=== PATIENT | female | born 1940 | race Asian ===

== ENCOUNTER 2016-05-14 14:01 | Observation (INO) | payer MEDICARE ==
[2016-05-14] MEDS ORDERED: cloNIDine 0.1 MG Tab PO ONE (14:37)
[2016-05-14] MEDS ORDERED: Labetalol 100 MG/20 ML MDV IVPUSH ONE ×4 (14:41→19:11)
[2016-05-14] MEDS: Sodium Chloride 0.9% 1,000 ML IV SCH ×2 (15:19→22:43)
[2016-05-14] MEDS ORDERED: Labetalol 20 MG/4 ML Syringe IVPUSH ONE ×2 (16:08→19:13)
[2016-05-14] MEDS ORDERED: Labetalol 20 MG/4 ML Syringe ONE (16:15)
[2016-05-14] MEDS ORDERED: Potassium Chloride 20 MEQ Tab.ER PO ONE (16:42)
[2016-05-14] MEDS ORDERED: Meclizine 25 MG Tab PO ONE (17:00)
[2016-05-14] MEDS ORDERED: Meclizine 25 MG Tab PO STA (17:14)
[2016-05-14] MEDS ORDERED: hydrALAZINE 20 MG/ML SDV IVPUSH ONE (20:25)
[2016-05-14] MEDS ORDERED: Ciprofloxacin 500 MG Tab PO ONE (21:21)
--- NOTE | 2016-05-14 21:43 | EDM.PDOC ---
ED HPI GI/ABDOMINAL - General Chief Complaint: Gastrointestinal Problem Stated Complaint: WEAK, DIZZY, VOMITTING, SHAKING Time Seen by Provider: 05/14/16 14:30 Source: Reports: Patient, Family History Limitations: Reports: Physical impairment - History of Present Illness INITIAL COMMENTS - FREE TEXT/NARRATIVE: 75 year old w f with a history of HTN came to the the ed due to weakness, unable to ambulate and dizziness. BP was initially 203/77. Pt took all her meds LATHE PULLER. Pt is a poor historian, HPT was given by her friend, who lives in the same house. Pt had H/A and vomited LATHE PULLER one time. No CP. Pt denies other acute medical issues. Symptom Onset Date: 05/14/16 Symptom Onset Time: 08:00 Timing/Duration: Reports: Hour(s):, Intermittent Location: generalized Severity: moderate Associated Symptoms (-Female): Reports: denies other symptoms - Related Data Allergies/ADRs: Allergies Allergy/AdvReac Type Severity Reaction Status Date / Time hydrocodone Allergy Hallucinati Verified 05/14/16 14:27 ons Sulfa (Sulfonamide Allergy Rash Verified 05/14/16 14:27 Antibiotics) Home Meds: Home Meds Aspirin [Adult Low Dose Aspirin EC] 162 mg PO DAILY 10/13/15 [History] Carvedilol [Coreg] 25 mg PO ,18 10/13/15 [History] Clopidogrel [Plavix] 75 mg PO DAILY 10/13/15 [History] Dimenhydrinate [Dramamine] 100 mg PO BID 10/13/15 [History] Fluticasone Propionate [Flonase] 1 spray NASBOTH BID 10/13/15 [History] Hydrochlorothiazide 25 mg PO DAILY 10/13/15 [History] Isosorbide Mononitrate [Imdur] 60 mg PO DAILY 10/13/15 [History] Latanoprost [Xalatan 0.005% Ophth Soln] 1 drop EYEBOTH BEDTIME 10/13/15 [History ] Nitroglycerin [Nitrostat] 0.4 mg SL ASDIRECTED PRN 10/13/15 [History] amLODIPine [Norvasc] 10 mg PO DAILY 10/13/15 [History] atorvaSTATin [Lipitor] 40 mg PO BEDTIME 10/13/15 [History] Past Medical History HEENT History: Reports: Cataract, Hard of hearing, Other (see below) Other HEENT History: wears glasses Cardiovascular History: Reports: Heart Failure, Heart valve replacement, SOB on exertion, Other (see below) Other Cardiovascular History: 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 2 weeks ago filled up with fluid dr herr changed my meds Respiratory History: Reports: Other (see below) Other Respiratory History: pneumonia once before not hospitalizwd for Gastrointestinal History: Reports: GERD Genitourinary History: Reports: Urinary incontinence [employer] History: Reports: Other OB/BYN History: had 4 babys Musculoskeletal History: Reports: Arthritis Other Musculoskeletal History: my hand and knee Neurological History: Reports: Vertigo Other Neuro History: " have vertigo for a long time" - Past Surgical History Cardiovascular Surgical History: Reports: Coronary artery bypass, Valve replacement Other Female Surgeries/Procedures: ? kidnet u/s in near future per 's order Social & Family History - Family History Family Medical History: Noncontributory - Tobacco Use Smoking Status *Q: Former Smoker Years of Tobacco use: 20 Packs/Tins Daily: 0.5 Used Tobacco, but Quit: Yes Month Tobacco Last Used: unknown Second Hand Smoke Exposure: No - Caffeine Use Caffeine Use: Reports: Coffee, Soda, Tea - Recreational Drug Use Recreational Drug Use: No ED ROS GENERAL - Review of Systems Review Of Systems: See Below Constitutional: Reports: no symptoms, weakness, decreased appetite, weight loss HEENT: Reports: No symptoms Respiratory: Reports: No Symptoms Cardiovascular: Reports: Blood pressure problem, Lightheadedness Endocrine: Reports: no symptoms GI/Abdominal: Reports: No symptoms : Reports: no symptoms Musculoskeletal: Reports: no symptoms Skin: Reports: no symptoms Neurological: Reports: Dizziness, Headache Psychiatric: Reports: No symptoms Hematologic/Lymphatic: Reports: no symptoms Immunologic: Reports: no symptoms ED EXAM, GI/ABD - Physical Exam Exam: See Below Exam Limited By: No limitations General Appearance: alert, WD/WN, mild distress, thin Eyes: bilateral: normal appearance Ears: normal external exam Nose: normal inspection, normal mucosa, no blood Throat/Mouth: Normal inspection, Normal lips, Normal gums, Normal voice Head: atraumatic, normocephalic Neck: normal inspection, supple, non-tender, full range of motion Respiratory/Chest: no respiratory distress, lungs clear, normal breath sounds, no accessory muscle use, chest non-tender Cardiovascular: normal peripheral pulses, regular rate, rhythm, no edema, no gallop, no JVD GI/Abdominal: normal bowel sounds, soft, non tender, no organomegaly, no distention (Female) Exam: Deferred Rectal (Female) Exam: Deferred Back Exam: normal inspection, full range of motion Extremities: normal inspection, normal range of motion, non-tender Neurological: alert, oriented, CN II-XII intact, normal cognition, abnormal gait Psychiatric: normal affect, normal mood Skin Exam: Warm, Dry, Intact, Normal color, No rash Lymphatic: no adenopathy Course - Vital Signs Text/Narrative:: 75 year old w f with a history of HTN came to the the ed due to weakness, unable to ambulate and dizziness. BP was initially 203/77. Pt took all her meds [facility]. Pt is a poor historian, HPT was given by her friend, who lives in the same house. Pt had H/A and vomited LATHE PULLER one time. No CP. Pt denies other acute medical issues. PE: weak,thin 75 y.o.f. with dizzines and vomiting once, BP 204/77 Labs: potassium 3.1 Na 133, WBC WNL UA pos for UTI Imaging: Head CT NAD Impression: Hypokalemia, hyponatremia, gen weakness, HNT, Vertigo, UTI Tx: Clonidin, Labetolol, Hydralazine, Antivert,Cipro Reexam: Improved but still unsteady gait. Plan: Admit to M/S tele OBS Last Recorded V/S: Last Vital Signs Temp 37.3 C 05/14/16 14:30 Pulse 77 05/14/16 14:54 Resp 20 05/14/16 14:54 BP 193/46 H 05/14/16 15:16 Pulse Ox 99 05/14/16 14:54 - Orders/Labs/Meds Orders: Active Orders 24 hr Category Date Time Status Head wo Cont [CT] Stat Exams 05/14/16 14:44 Taken Sodium Chloride 0.9% [Normal Saline] 1,000 ml Med 05/14/16 14:45 Active IV ASDIRECTED Sodium Chloride 0.9% [Saline Flush] Med 05/14/16 14:41 Active 10 ml FLUSH ASDIRECTED PRN Saline Lock Insert [OM.PC] Routine Oth 05/14/16 14:41 Ordered Medication Orders Sodium Chloride (Normal Saline) 1,000 mls @ 125 mls/hr IV ASDIRECTED SHERON Last Admin: 05/14/16 15:19 Dose: 125 mls/hr Ondansetron HCl (Zofran) 4 mg IV Q4H PRN PRN Reason: Nausea/Vomiting Sodium Chloride (Saline Flush) 10 ml FLUSH ASDIRECTED PRN PRN Reason: Keep Vein Open Labs: Laboratory Tests 05/14/16 05/14/16 05/14/16 Range/Units 15:30 15:30 15:30 WBC 5.6 (4.5-12.0) X10-3/uL RBC 4.69 (3.23-5.20) x10(6)uL Hgb 14.3 D (11.5-15.5) g/dL Hct 42.8 (30.0-51.3) % MCV 91.2 (80-96) fL MCH 30.6 (27.7-33.6) pg MCHC 33.5 (32.2-35.4) g/dL RDW 12.9 (11.5-15.5) % Plt Count 178 (125-369) X10(3)uL MPV 8.5 (7.4-10.4) fL Neut % (Auto) 71.9 (46-82) % Lymph % (Auto) 18.3 (13-37) % [place] % (Auto) 7.5 (4-12) % Eos % (Auto) 0 L (1.0-5.0) % Baso % (Auto) 2 (0-2) % Neut # (Auto) 4.1 (1.6-8.3) # Lymph # (Auto) 1.0 (0.6-5.0) # [place] # (Auto) 0.4 (0.0-1.3) # Eos # (Auto) 0.0 (0.0-0.8) # Baso # (Auto) 0.1 (0.0-0.2) # PT 11.0 (8.7-11.1) INR 1.09 (0.89-1.13) Sodium 132 L D (135-145) mmol/L Potassium 3.1 L D (3.5-5.3) mmol/L Chloride 96 L D (100-110) mmol/L Carbon Dioxide 27 (23-29) mmol/L BUN 19 D (8-23) mg/dL Creatinine 1.2 (0.6-1.3) mg/dL Est Cr Clr Drug Dosing TNP Estimated GFR (MDRD) 44 L (>60) BUN/Creatinine Ratio 15.8 (9-20) Glucose 148 H (80-116) mg/dL Calcium 8.2 L (8.6-10.2) mg/dL Urine Color (YELLOW) Urine Appearance (CLEAR) Urine pH (5.0-6.5) Ur Specific [place] (1.010-1.025) Urine Protein (NEGATIVE) mg/dL Urine Glucose (UA) (NEGATIVE) mg/dL Urine Ketones (NEGATIVE) mg/dL Urine Occult Blood (NEGATIVE) Urine Nitrite (NEGATIVE) Urine Bilirubin (NEGATIVE) Urine Urobilinogen (NEGATIVE) mg/dL Ur Leukocyte Esterase (NEGATIVE) Urine RBC (0) Urine WBC (0) Ur Squamous Epith Cells (NS,R,O) Urine Bacteria (NS) 05/14/16 Range/Units 20:42 WBC (4.5-12.0) X10-3/uL RBC (3.23-5.20) x10(6)uL Hgb (11.5-15.5) g/dL Hct (30.0-51.3) % MCV (80-96) fL MCH (27.7-33.6) pg MCHC (32.2-35.4) g/dL RDW (11.5-15.5) % Plt Count (125-369) X10(3)uL MPV (7.4-10.4) fL Neut % (Auto) (46-82) % Lymph % (Auto) (13-37) % [place] % (Auto) (4-12) % Eos % (Auto) (1.0-5.0) % Baso % (Auto) (0-2) % Neut # (Auto) (1.6-8.3) # Lymph # (Auto) (0.6-5.0) # [place] # (Auto) (0.0-1.3) # Eos # (Auto) (0.0-0.8) # Baso # (Auto) (0.0-0.2) # PT (8.7-11.1) INR (0.89-1.13) Sodium (135-145) mmol/L Potassium (3.5-5.3) mmol/L Chloride (100-110) mmol/L Carbon Dioxide (23-29) mmol/L BUN (8-23) mg/dL Creatinine (0.6-1.3) mg/dL Est Cr Clr Drug Dosing Estimated GFR (MDRD) (>60) BUN/Creatinine Ratio (9-20) Glucose (80-116) mg/dL Calcium (8.6-10.2) mg/dL Urine Color Yellow (YELLOW) Urine Appearance Clear (CLEAR) Urine pH 6.0 (5.0-6.5) Ur Specific [place] 1.010 (1.010-1.025) Urine Protein 500 H (NEGATIVE) mg/dL Urine Glucose (UA) Normal (NEGATIVE) mg/dL Urine Ketones 15 H (NEGATIVE) mg/dL Urine Occult Blood Trace (NEGATIVE) Urine Nitrite Negative (NEGATIVE) Urine Bilirubin Negative (NEGATIVE) Urine Urobilinogen Normal (NEGATIVE) mg/dL Ur Leukocyte Esterase Small H (NEGATIVE) Urine RBC 0-5 (0) Urine WBC 5-10 (0) Ur Squamous Epith Cells Few H (NS,R,O) Urine Bacteria Few H (NS) Meds: Medications Generic Name Dose Route Start Last Admin Trade Name Freq PRN Reason Stop Dose Admin Sodium Chloride 1,000 mls @ 125 mls/hr 05/14/16 14:45 05/14/16 15:19 Normal Saline IV 125 mls/hr ASDIRECTED SHERON Administration Ondansetron HCl 4 mg 05/14/16 21:47 Zofran IV Q4H PRN Nausea/Vomiting Sodium Chloride 10 ml 05/14/16 14:41 Saline Flush FLUSH ASDIRECTED PRN Keep Vein Open Discontinued Medications Generic Name Dose Route Start Last Admin Trade Name Freq PRN Reason Stop Dose Admin Ciprofloxacin 500 mg 05/14/16 21:21 05/14/16 21:30 Ciprofloxacin Hcl PO 05/14/16 21:22 500 mg ONETIME ONE Administration Clonidine HCl 0.1 mg 05/14/16 14:37 05/14/16 15:16 Catapres PO 05/14/16 14:38 0.1 mg ONETIME ONE Administration Hydralazine HCl 5 mg 05/14/16 20:25 05/14/16 20:33 Apresoline IVPUSH 05/14/16 20:26 5 mg ONETIME ONE Administration Labetalol HCl 10 mg 05/14/16 14:41 05/14/16 15:17 Normodyne IVPUSH 05/14/16 14:42 Not Given ONETIME ONE Protocol Labetalol HCl 5 mg 05/14/16 16:07 05/14/16 16:22 Normodyne IVPUSH 05/14/16 16:08 Not Given ONETIME ONE Protocol Labetalol HCl Confirm 05/14/16 16:15 05/14/16 19:08 Normodyne Administered 05/14/16 16:16 Not Given Dose 20 mg .ROUTE .STK-MED ONE Labetalol HCl 5 mg 05/14/16 16:08 05/14/16 16:21 Normodyne IVPUSH 05/14/16 16:09 5 mg NOW ONE Administration Protocol Labetalol HCl 10 mg 05/14/16 16:44 05/14/16 19:56 Normodyne IVPUSH 05/14/16 16:45 Not Given ONETIME ONE Protocol Labetalol HCl 10 mg 05/14/16 19:11 05/14/16 19:56 Normodyne IVPUSH 05/14/16 19:12 Not Given ONETIME ONE Protocol Labetalol HCl 10 mg 05/14/16 19:13 05/14/16 19:20 Normodyne IVPUSH 05/14/16 19:14 10 mg NOW ONE Administration Protocol Meclizine HCl 25 mg 05/14/16 17:00 05/14/16 17:04 Antivert PO 05/14/16 17:01 25 mg ONETIME ONE Administration Meclizine HCl 50 mg 05/14/16 17:14 05/14/16 19:05 Antivert PO 05/14/16 17:15 Not Given ONETIME STA Potassium Chloride 40 meq 05/14/16 16:42 05/14/16 17:04 Klor-Con M20 PO 05/14/16 16:43 40 meq ONETIME ONE Administration Departure - Departure Time of Disposition: 22:15 Disposition: Refer to Observation Condition: fair Clinical Impression: Unsteady gait - My Orders Last 24 Hours: My Active Orders 05/14/16 14:41 Sodium Chloride 0.9% [Saline Flush] 10 ml FLUSH ASDIRECTED PRN Saline Lock Insert [OM.PC] Routine 05/14/16 14:44 Head wo Cont [CT] Stat 05/14/16 14:45 Sodium Chloride 0.9% [Normal Saline] 1,000 ml IV ASDIRECTED - Assessment/Plan Last 24 Hours: My Active Orders 05/14/16 14:41 Sodium Chloride 0.9% [Saline Flush] 10 ml FLUSH ASDIRECTED PRN Saline Lock Insert [OM.PC] Routine 05/14/16 14:44 Head wo Cont [CT] Stat 05/14/16 14:45 Sodium Chloride 0.9% [Normal Saline] 1,000 ml IV ASDIRECTED
[2016-05-14] MEDS ORDERED: Ondansetron 4 MG/2 ML SDV IV PRN (21:47)
[2016-05-15] MEDS: Sodium Chloride 0.9% 1,000 ML IV SCH (06:20)
[2016-05-15] MEDS ORDERED: NITROGLYCERIN 0.4 MG SL PRN (10:22)
[2016-05-15] MEDS ORDERED: CARVEDILOL 25 MG PO ONE (10:26)
[2016-05-15] MEDS: HYDROCHLOROTHIAZIDE 25 MG PO SCH (12:01)
[2016-05-15] MEDS: CLOPIDOGREL 75 MG PO SCH (12:02)
[2016-05-15] MEDS: ISOSORBIDE MONONITRATE 120 MG PO SCH (12:02)
[2016-05-15] MEDS: Pantoprazole 40 MG Vial IVPUSH SCH (12:19)
[2016-05-15] MEDS: Sodium Chloride 0.9% 10 ML Syringe FLUSH PRN (12:19)
--- NOTE | 2016-05-15 16:15 | PCM.HP ---
H&P History of Present Illness - General Admit Problem/Dx: Admission Diagnosis/Problem Admission Diagnosis/Problem Weakness HPI: Pleasant 75 year female admitted with htn urgency after an illness resulting in n/v and loose stools a few days before. she has hx of severe labile htn and had not taken her meds the day of or prior due to poor oral intake. was noted on admission to be weak and unsteady on her feet and dehydrated with electrolyte abnormalities. required IV antihypertensives in ER in order to bring down pressures to manageable levels. head ct negative. cxr negative. trops neg. she denied choking or coughing, sob, cp/pressure or palpitations, or edema. did say stools darker and some resolving abdominal cramping. was prior being treated for a UTI. UA negative today. no culture report from clinic. Given IV hydration, electrolytes with close monitoring on tele overnight with event. no home meds have been restarted as of yet. nausea now controlled. Today, blood pressures still elevated but asymptomatic. Tells me today she is feeling better and appetite regained. notes no white or vision changes. she still feels weak, but not as much as before she came in. denies any flank pain or difficulty emptying bladder. no diarrhea overnight. She is to have an echocardiogram in the next few weeks per routine cardiac follow up. She also follows with nephrology for bp control as well. she is to keep this appt. Federico Herr MD [Primary Care Provider] Home Meds: Home Meds Aspirin [Adult Low Dose Aspirin EC] 162 mg PO DAILY 10/13/15 [History] Carvedilol [Coreg] 25 mg PO 08,18 10/13/15 [History] Clopidogrel [Plavix] 75 mg PO DAILY 10/13/15 [History] Dimenhydrinate [Dramamine] 100 mg PO BID 10/13/15 [History] Fluticasone Propionate [Flonase] 1 spray NASBOTH BID 10/13/15 [History] Hydrochlorothiazide 25 mg PO DAILY 10/13/15 [History] Isosorbide Mononitrate [Imdur] 60 mg PO DAILY 10/13/15 [History] Latanoprost [Xalatan 0.005% Ophth Soln] 1 drop EYEBOTH BEDTIME 10/13/15 [History ] Nitroglycerin [Nitrostat] 0.4 mg SL ASDIRECTED PRN 10/13/15 [History] amLODIPine [Norvasc] 10 mg PO DAILY 10/13/15 [History] atorvaSTATin [Lipitor] 40 mg PO BEDTIME 10/13/15 [History] abdiminal Pain Score (Numeric/FACES): 3 asleep Pain Score (Numeric/FACES): 0 - Related Data Allergies/Adverse Reactions: Allergies Allergy/AdvReac Type Severity Reaction Status Date / Time hydrocodone Allergy Hallucinati Verified 05/14/16 14:27 ons Sulfa (Sulfonamide Allergy Rash Verified 05/14/16 14:27 Antibiotics) Home Medications: Home Meds Aspirin [Adult Low Dose Aspirin EC] 162 mg PO DAILY 10/13/15 [History] Carvedilol [Coreg] 25 mg PO 10/13/15 [History] Clopidogrel [Plavix] 75 mg PO DAILY 10/13/15 [History] Dimenhydrinate [Dramamine] 100 mg PO BEDTIME 10/13/15 [History] Fluticasone Propionate [Flonase] 1 spray NASBOTH BID 10/13/15 [History] Hydrochlorothiazide 25 mg PO DAILY 10/13/15 [History] Latanoprost [Xalatan 0.005% Ophth Soln] 1 drop EYEBOTH BEDTIME 10/13/15 [History ] Nitroglycerin [Nitrostat] 0.4 mg SL ASDIRECTED PRN 10/13/15 [History] amLODIPine [Norvasc] 10 mg PO DAILY 10/13/15 [History] atorvaSTATin [Lipitor] 40 mg PO BEDTIME 10/13/15 [History] Isosorbide Mononitrate [Isosorbide Mononitrate ER] 120 mg PO DAILY 05/14/16 [ History] guaiFENesin/Codeine Phosphate [Guaifenesin AC Cough Syrup] 5 ml PO Q4H PRN 05/14 [History] Alendronate [Fosamax] 70 mg PO PRUITT 05/15/16 [History] Past Medical History HEENT History: Reports: Cataract, Hard of Hearing, Other (See Below) Other HEENT History: wears glasses Cardiovascular History: Reports: Heart Failure, Heart Valve Replacement, SOB on Exertion, Other (See Below) Other Cardiovascular History: 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 2 weeks ago filled up with fluid dr herr changed my meds Respiratory History: Reports: Other (See Below) Other Respiratory History: pneumonia once before not hospitalizwd for Gastrointestinal History: Reports: GERD Genitourinary History: Reports: Urinary Incontinence, UTI, Recurrent Other Genitourinary History: CKD-FOLLOWS WITH 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 PATHOLOGY History: Reports: : 4 Para: 4 LMP (Approximate): Menopausal Musculoskeletal History: Reports: Arthritis Other Musculoskeletal History: my hand and knee Neurological History: Reports: Vertigo Other Neuro History: " have vertigo for a long time" Endocrine/Metabolic History: Reports: Osteoporosis Hematologic History: Reports: Anticoagulation Therapy - Past Surgical History Cardiovascular Surgical History: Reports: Coronary Artery Bypass, Valve Replacement Other Female Surgeries/Procedures: Renal u/s scheduled Social & Family History - Family History Family Medical History: Noncontributory - Tobacco Use Smoking Status *Q: Former Smoker Years of Tobacco use: 20 Packs/Tins Daily: 0.5 Used Tobacco, but Quit: Yes Month Tobacco Last Used: unknown Second Hand Smoke Exposure: No - Caffeine Use Caffeine Use: Reports: Coffee, Soda, Tea - Recreational Drug Use Recreational Drug Use: No - Living Situation & Occupation Living situation: Reports: Alone H&P Review of Systems - Review of Systems: Review Of Systems: ROS reveals no pertinent complaints other than HPI. Exam - Exam Exam: See Below - Vital Signs Vital Signs: Last Vital Signs Orthostatic Blood Pressure [ 178/64 Standing] Orthostatic Blood Pressure [ 178/63 Sitting] Orthostatic Blood Pressure [ 184/60 Supine] Vital Signs (72 hours) 05/14/16 05/14/16 05/14/16 14:30 14:54 15:16 Temperature [ 99.2 F Oral] Pulse, Peripheral Pulse, Peripheral [ Left Brachial] Pulse, 73 77 Peripheral [ Left Pulse Oximetry] Respiratory 17 20 Rate Blood Pressure 193/46 H Blood Pressure [Left Upper Arm ] Blood Pressure 203/40 H 165/82 H [Right Upper Arm] O2 Sat by Pulse 97 99 Oximetry 05/14/16 05/15/16 05/15/16 22:07 02:55 08:15 Temperature [ 98.3 F 98.4 F Oral] Pulse, Peripheral Pulse, Peripheral [ Left Brachial] Pulse, 77 76 80 Peripheral [ Left Pulse Oximetry] Respiratory 17 16 18 Rate Blood Pressure Blood Pressure 155/52 H 170/64 H [Left Upper Arm ] Blood Pressure 146/48 H [Right Upper Arm] O2 Sat by Pulse 99 96 97 Oximetry 05/15/16 11:58 Temperature [ Oral] Pulse, 78 Peripheral Pulse, Peripheral [ Left Brachial] Pulse, Peripheral [ Left Pulse Oximetry] Respiratory Rate Blood Pressure 197/63 H Blood Pressure [Left Upper Arm ] Blood Pressure [Right Upper Arm] O2 Sat by Pulse Oximetry Weight: 42.638 kg - Exam Physical Exam Comments:: - Exam General: Reports: alert, oriented, cooperative, no acute distress HEENT: Reports: Pupils equal, Pupils reactive, Mucous membr. moist/pink Neck: Reports: supple, no JVD, carotid bruit (bilat) Lungs: Reports: Clear to auscultation, Normal respiratory effort Cardiovascular: Reports: Regular Rate, Regular Rhythm, Murmurs (2/6 holosystolic radiating into the carotids) Abdomen: Reports: bowel sounds present, soft, no tenderness, no distension. Denies: CVA tenderness Back Exam: Reports: normal inspection, full range of motion Extremities: Reports: no edema, no calf tenderness Skin: Reports: warm, dry Neurological: Reports: no new focal deficit, normal speech, normal tone, strength equal bilateral, sensation intact, cranial nerves intact Psy/Mental Status: Reports: alert, normal affect, normal mood - Patient Data Lab Results last 24 hrs: Weight - Most Recent: 42.638 kg I&O - Last 24 hours: Intake & Output 05/14/16 05/15/16 06:59 06:59 Intake Total 950 Balance 950 Lab Results - Last 24 hrs: Laboratory Tests 05/14/16 05/14/16 05/14/16 Range/Units 15:30 15:30 15:30 WBC 5.6 (4.5-12.0) X10-3/uL RBC 4.69 (3.23-5.20) x10(6)uL Hgb 14.3 D (11.5-15.5) g/dL Hct 42.8 (30.0-51.3) % MCV 91.2 (80-96) fL MCH 30.6 (27.7-33.6) pg MCHC 33.5 (32.2-35.4) g/dL RDW 12.9 (11.5-15.5) % Plt Count 178 (125-369) X10(3)uL MPV 8.5 (7.4-10.4) fL Neut % (Auto) 71.9 (46-82) % Lymph % (Auto) 18.3 (13-37) % [place] % (Auto) 7.5 (4-12) % Eos % (Auto) 0 L (1.0-5.0) % Baso % (Auto) 2 (0-2) % Neut # (Auto) 4.1 (1.6-8.3) # Lymph # (Auto) 1.0 (0.6-5.0) # [place] # (Auto) 0.4 (0.0-1.3) # Eos # (Auto) 0.0 (0.0-0.8) # Baso # (Auto) 0.1 (0.0-0.2) # PT 11.0 (8.7-11.1) INR 1.09 (0.89-1.13) Sodium 132 L D (135-145) mmol/L Potassium 3.1 L D (3.5-5.3) mmol/L Chloride 96 L D (100-110) mmol/L Carbon Dioxide 27 (23-29) mmol/L BUN 19 D (8-23) mg/dL Creatinine 1.2 (0.6-1.3) mg/dL Est Cr Clr Drug Dosing TNP Estimated GFR (MDRD) 44 L (>60) BUN/Creatinine Ratio 15.8 (9-20) Glucose 148 H (80-116) mg/dL Calcium 8.2 L (8.6-10.2) mg/dL Total Bilirubin (0.1-1.3) mg/dL AST (5-27) IU/L ALT (14-26) IU/L Alkaline Phosphatase (56-112) IU/L Total Protein (6.0-8.0) g/dL Albumin (3.2-4.6) g/dL Globulin g/dL Albumin/Globulin Ratio Urine Color (YELLOW) Urine Appearance (CLEAR) Urine pH (5.0-6.5) Ur Specific [place] (1.010-1.025) Urine Protein (NEGATIVE) mg/dL Urine Glucose (UA) (NEGATIVE) mg/dL Urine Ketones (NEGATIVE) mg/dL Urine Occult Blood (NEGATIVE) Urine Nitrite (NEGATIVE) Urine Bilirubin (NEGATIVE) Urine Urobilinogen (NEGATIVE) mg/dL Ur Leukocyte Esterase (NEGATIVE) Urine RBC (0) Urine WBC (0) Ur Squamous Epith Cells (NS,R,O) Urine Bacteria (NS) 05/14/16 05/15/16 Range/Units 20:42 11:00 WBC (4.5-12.0) X10-3/uL RBC (3.23-5.20) x10(6)uL Hgb (11.5-15.5) g/dL Hct (30.0-51.3) % MCV (80-96) fL MCH (27.7-33.6) pg MCHC (32.2-35.4) g/dL RDW (11.5-15.5) % Plt Count (125-369) X10(3)uL MPV (7.4-10.4) fL Neut % (Auto) (46-82) % Lymph % (Auto) (13-37) % [place] % (Auto) (4-12) % Eos % (Auto) (1.0-5.0) % Baso % (Auto) (0-2) % Neut # (Auto) (1.6-8.3) # Lymph # (Auto) (0.6-5.0) # [place] # (Auto) (0.0-1.3) # Eos # (Auto) (0.0-0.8) # Baso # (Auto) (0.0-0.2) # PT (8.7-11.1) INR (0.89-1.13) Sodium 141 (135-145) mmol/L Potassium 3.9 (3.5-5.3) mmol/L Chloride 106 D (100-110) mmol/L Carbon Dioxide 27 (23-29) mmol/L BUN 15 (8-23) mg/dL Creatinine 0.9 (0.6-1.3) mg/dL Est Cr Clr Drug Dosing 35.24 Estimated GFR (MDRD) > 60 (>60) BUN/Creatinine Ratio 16.7 (9-20) Glucose 107 (80-116) mg/dL Calcium 8.2 L (8.6-10.2) mg/dL Total Bilirubin 0.4 (0.1-1.3) mg/dL AST 40 H D (5-27) IU/L ALT 22 D (14-26) IU/L Alkaline Phosphatase 66 (56-112) IU/L Total Protein 6.9 (6.0-8.0) g/dL Albumin 3.2 (3.2-4.6) g/dL Globulin 3.7 g/dL Albumin/Globulin Ratio 0.9 Urine Color Yellow (YELLOW) Urine Appearance Clear (CLEAR) Urine pH 6.0 (5.0-6.5) Ur Specific [place] 1.010 (1.010-1.025) Urine Protein 500 H (NEGATIVE) mg/dL Urine Glucose (UA) Normal (NEGATIVE) mg/dL Urine Ketones 15 H (NEGATIVE) mg/dL Urine Occult Blood Trace (NEGATIVE) Urine Nitrite Negative (NEGATIVE) Urine Bilirubin Negative (NEGATIVE) Urine Urobilinogen Normal (NEGATIVE) mg/dL Ur Leukocyte Esterase Small H (NEGATIVE) Urine RBC 0-5 (0) Urine WBC 5-10 (0) Ur Squamous Epith Cells Few H (NS,R,O) Urine Bacteria Few H (NS) Microbiology 05/15/16 14:40 Stool Occult Blood (LUCAS) - Final Stool / Feces negative Result Diagrams: 05/14/16 15:30 05/16/16 06:45 *Q Meaningful Use (ADM) - VTE *Q VTE Criteria *Q: VTE Mechanical Contraindications *Q: At Risk for Falls VTE Pharmacological Contraindications *Q: Risk of Bleeding - Stroke *Q Stroke Criteria *Q: - AMI *Q AMI Criteria *Q: Problem List Initiated/Reviewed/Updated: Yes Orders Last 24hrs: Active Orders 24 hr Category Date Time Status Telemetry Monitoring [Cardiac Monitoring] [RC] 08,16,00 Care 05/15/16 00:02 Active Regular Diet [DIET] Diet 05/15/16 Dinner Active COMPREHENSIVE METABOLIC PN,CMP [CHEM] AM Lab 05/16/16 05:11 Ordered CULTURE URINE [RM] Routine Lab 05/14/16 20:46 Received Carvedilol [Coreg] Med 05/15/16 18:00 Active 25 mg PO BID@0800,1800 Clopidogrel [Plavix] Med 05/15/16 10:30 Active 75 mg PO DAILY Hydrochlorothiazide Med 05/15/16 10:30 Active 25 mg PO DAILY Isosorbide Mononitrate [Isosorbide Mononitrate ER] Med 05/15/16 10:30 Active 120 mg PO DAILY Latanoprost [Xalatan 0.005% Ophth Soln] Med 05/15/16 21:00 Active 0 ml EYEBOTH BEDTIME Nitroglycerin [Nitrostat] Med 05/15/16 10:22 Active 0.4 mg SL ASDIRECTED PRN Pantoprazole [ProTONIX IV] Med 05/15/16 10:30 Active 40 mg IVPUSH DAILY amLODIPine [Norvasc] Med 05/16/16 09:00 Active 10 mg PO DAILY dimenhyDRINATE [Driminate] Med 05/15/16 21:00 Active 100 mg PO BEDTIME Convert IV to Saline Lock [OM.PC] Routine Oth 05/15/16 10:22 Ordered SCD [Sequential Compression Device] [OM.PC] Routine Oth 05/15/16 10:29 Ordered Medication Orders Amlodipine Besylate (Norvasc) 10 mg PO DAILY [facility] Carvedilol (Coreg) 25 mg PO BID@0800,1800 [facility] Clopidogrel Bisulfate (Plavix) 75 mg PO DAILY [facility] Last Admin: 05/15/16 12:02 Dose: 75 mg Dimenhydrinate (Driminate) 100 mg PO BEDTIME [facility] Hydrochlorothiazide (Hydrochlorothiazide) 25 mg PO DAILY [facility] Last Admin: 05/15/16 12:01 Dose: 25 mg Latanoprost (Xalatan 0.005% Ophth Soln) 0 ml EYEBOTH BEDTIME [facility] Nitroglycerin (Nitrostat) 0.4 mg SL ASDIRECTED PRN PRN Reason: Chest Pain Isosorbide Mononitrate Er 120 Mg*Own Med* 120 mg PO DAILY [facility] Last Admin: 05/15/16 12:02 Dose: 120 mg Ondansetron HCl (Zofran) 4 mg IV Q4H PRN PRN Reason: Nausea/Vomiting Pantoprazole Sodium (Protonix Iv) 40 mg IVPUSH DAILY [facility] Last Admin: 05/15/16 12:19 Dose: 40 mg Sodium Chloride (Saline Flush) 10 ml FLUSH ASDIRECTED PRN PRN Reason: Keep Vein Open Last Admin: 05/15/16 12:19 Dose: 10 ml Assessment/Plan Comment:: ASSESSMENT: (1) Hypertensive urgency SNOMED Code(s): 605015657 ICD Code: I16.0 - HYPERTENSIVE URGENCY Status: Acute Priority: High Current Visit: Yes (2) CAD (coronary artery disease) SNOMED Code(s): 24229873 ICD Code: I25.10 - ATHSCL HEART DISEASE OF [place] CORONARY ARTERY W/O ANG PCTRS Status: Chronic Current Visit: No Qualifiers: Coronary Disease-Associated Artery/Lesion type: bypass graft (3) CHF (congestive heart failure) SNOMED Code(s): 10397678 ICD Code: I50.9 - HEART FAILURE, UNSPECIFIED Status: Chronic Current Visit: No Qualifiers: Congestive heart failure type: unspecified congestive heart failure type (4) CKD (chronic kidney disease) SNOMED Code(s): 952020621 ICD Code: N18.9 - CHRONIC KIDNEY DISEASE, UNSPECIFIED Status: Chronic Current Visit: No Qualifiers: Chronic kidney disease stage: stage 3 (moderate) Qualified Code(s): N18.3 - Chronic kidney disease, stage 3 (moderate) (5) HTN (hypertension) SNOMED Code(s): 89676304 ICD Code: I10 - ESSENTIAL (PRIMARY) HYPERTENSION Status: Chronic Current Visit: No Qualifiers: Hypertension type: essential hypertension Qualified Code(s): I10 - Essential (primary) hypertension PLAN: will increase diet as tolerated. guaiac for hx dark stool. blood counts good. UTI resolved. no more antibiotics. bp acceptible at this point as not want to drop too low as she is chronically high and will increase her risk of ischemic stroke. restart home bp meds today and see how she does. have her up and out of bed as able with assist. vitals frequent and monitor weights. neuochecks can be discontinued at this time. repeat labs am for renal and electrolyte function. discussed all with pt and her daughter. there agree. anticipate discharge 24- 48h pending above. Total Time: 60 min with >50% face to face with pt and family conducting interview, exam, medication review, formulating and explaining course of cares.
[2016-05-15] MEDS: CARVEDILOL 25 MG PO SCH (17:03)
[2016-05-15] MEDS ORDERED: LATANOPROST 0.005% EYEBOTH SCH (21:00)
[2016-05-15] MEDS ORDERED: DIMENHYDRINATE 50 MG PO SCH (21:00)
[2016-05-16] MEDS: CARVEDILOL 25 MG PO SCH (08:37)
[2016-05-16] MEDS: ISOSORBIDE MONONITRATE 120 MG PO SCH (08:45)
[2016-05-16] MEDS: HYDROCHLOROTHIAZIDE 25 MG PO SCH (08:45)
[2016-05-16] MEDS: amLODIPine 10 MG Tab**OWN MED PO SCH ×2 (08:47→13:39)
[2016-05-16] MEDS: CLOPIDOGREL 75 MG PO SCH (08:47)
[2016-05-16 08:48] VITALS: BP 172/55
[2016-05-16] MEDS: Sodium Chloride 0.9% 10 ML Syringe FLUSH PRN (08:48)
[2016-05-16] MEDS: Pantoprazole 40 MG Vial IVPUSH SCH (08:48)
--- NOTE | 2016-05-16 14:25 | PCM.DCSUM1 ---
Discharge Summary - Discharge Data Discharge Date: 05/16/16 Discharge Disposition: Home, W [facility] Health Agency 06 Condition: Good - Discharge Diagnosis/Problem(s) (1) Hypertensive urgency SNOMED Code(s): 005395033 ICD Code: I16.0 - HYPERTENSIVE URGENCY Status: Acute Priority: High Current Visit: Yes (2) CAD (coronary artery disease) SNOMED Code(s): 50356671 ICD Code: I25.10 - ATHSCL HEART DISEASE OF [place] CORONARY ARTERY W/O ANG PCTRS Status: Chronic Current Visit: No Qualifiers: Coronary Disease-Associated Artery/Lesion type: bypass graft (3) CHF (congestive heart failure) SNOMED Code(s): 40615203 ICD Code: I50.9 - HEART FAILURE, UNSPECIFIED Status: Chronic Current Visit: No Qualifiers: Congestive heart failure type: unspecified congestive heart failure type (4) CKD (chronic kidney disease) SNOMED Code(s): 938595817 ICD Code: N18.9 - CHRONIC KIDNEY DISEASE, UNSPECIFIED Status: Chronic Current Visit: No Qualifiers: Chronic kidney disease stage: stage 3 (moderate) Qualified Code(s): N18.3 - Chronic kidney disease, stage 3 (moderate) (5) HTN (hypertension) SNOMED Code(s): 63357412 ICD Code: I10 - ESSENTIAL (PRIMARY) HYPERTENSION Status: Chronic Current Visit: No Qualifiers: Hypertension type: essential hypertension Qualified Code(s): I10 - Essential (primary) hypertension - Patient Summary/Data Hospital Course: pleasant 75 year female admitted with htn urgency after an illness resulting in n/v and loose stools a few days before. she has hx of severe labile htn and had not taken her meds the day of or prior. required IV antihypertensives in ER in order to bring down pressures to manageable levels. head ct negative. shes was restarted on her home medications and her bp responded well without tele changes or evidence of cardiac, renal or neurogenic compromise. she was noted on admission to be weak and unsteady on her feet and will hydration, bp control and improved intake, she has regained her strength and is now ambulating with improved strength and denies white/vision chg, near syncope on standing or ambulating, vertigo, nausea, choking or coughing, sob, cp/pressure or palpitations, edema, abd pain, back pain, joint pain, calf or leg pain, flank pain or difficulty emptying bladder. no diarrhea during stay and stool guiacs were negative. UA negative. trops neg. cxr negative. 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 she is to have an echocardiogram in the next few weeks per routine cardiac follow up. she is to keep this appt. she will continue her medications and no changes have been made otherwise. - Patient Instructions Diet: Heart Healthy Diet, Low Sodium Activity: As Tolerated, No Lifting Over 20 Pounds, No Strenuous Activities Driving: Do Not Drive Showering/Bathing: May Shower Notify Provider of: Swelling and Redness, Nausea and/or Vomiting Other/Special Instructions: sudden severe headache or vision changes, lightheadness or dizziness on standing. - Discharge Plan Home Medications: Home Meds Aspirin [Adult Low Dose Aspirin EC] 162 mg PO DAILY 10/13/15 [History] Carvedilol [Coreg] 25 mg PO ,18 10/13/15 [History] Clopidogrel [Plavix] 75 mg PO DAILY 10/13/15 [History] Dimenhydrinate [Dramamine] 100 mg PO BEDTIME 10/13/15 [History] Fluticasone Propionate [Flonase] 1 spray NASBOTH BID 10/13/15 [History] Hydrochlorothiazide 25 mg PO DAILY 10/13/15 [History] Latanoprost [Xalatan 0.005% Ophth Soln] 1 drop EYEBOTH BEDTIME 10/13/15 [History ] Nitroglycerin [Nitrostat] 0.4 mg SL ASDIRECTED PRN 10/13/15 [History] amLODIPine [Norvasc] 10 mg PO DAILY 10/13/15 [History] atorvaSTATin [Lipitor] 40 mg PO BEDTIME 10/13/15 [History] Isosorbide Mononitrate [Isosorbide Mononitrate ER] 120 mg PO DAILY 05/14/16 [ History] guaiFENesin/Codeine Phosphate [Guaifenesin AC Cough Syrup] 5 ml PO Q4H PRN 05/14 [History] Alendronate [Fosamax] 70 mg PO PRUITT 05/15/16 [History] Patient Handouts: Hypertension, [id number] Referrals: Federico Alvarenga MD [Primary Care Provider] - (5-7 days for bp chk/labs/ coordination of cares with cardiology and nephology) - Discharge Summary/Plan Comment DC Time >30 min.: Yes - General Info Date of Service: 05/16/16 Functional Status: Reports: tolerating diet, ambulating, urinating. Denies: new symptoms - Review of Systems Systems Review Comment: see hospital coarse please. - Patient Data Vitals - Most Recent: Vital Signs (72 hours) 05/14/16 05/14/16 05/14/16 14:30 14:54 15:16 Temperature [ 99.2 F Oral] Pulse, Peripheral Pulse, Peripheral [ Left Brachial] Pulse, 73 77 Peripheral [ Left Pulse Oximetry] Respiratory 17 20 Rate Blood Pressure 193/46 H Blood Pressure [Left Upper Arm ] Blood Pressure 203/40 H 165/82 H [Right Upper Arm] O2 Sat by Pulse 97 99 Oximetry 05/14/16 05/15/16 05/15/16 22:07 02:55 08:15 Temperature [ 98.3 F 98.4 F Oral] Pulse, Peripheral Pulse, Peripheral [ Left Brachial] Pulse, 77 76 80 Peripheral [ Left Pulse Oximetry] Respiratory 17 16 18 Rate Blood Pressure Blood Pressure 155/52 H 170/64 H [Left Upper Arm ] Blood Pressure 146/48 H [Right Upper Arm] O2 Sat by Pulse 99 96 97 Oximetry 05/15/16 05/15/16 05/15/16 11:58 13:15 15:35 Temperature [ Oral] Pulse, 78 Peripheral Pulse, Peripheral [ Left Brachial] Pulse, 74 Peripheral [ Left Pulse Oximetry] Respiratory Rate Blood Pressure 197/63 H Blood Pressure 144/52 H [Left Upper Arm ] Blood Pressure 134/57 L [Right Upper Arm] O2 Sat by Pulse Oximetry 05/15/16 05/15/16 05/15/16 16:54 18:40 20:00 Temperature [ 98.2 F Oral] Pulse, Peripheral Pulse, Peripheral [ Left Brachial] Pulse, 77 Peripheral [ Left Pulse Oximetry] Respiratory 18 Rate Blood Pressure Blood Pressure 150/51 H 144/56 H 124/58 L [Left Upper Arm ] Blood Pressure [Right Upper Arm] O2 Sat by Pulse 98 Oximetry 05/16/16 05/16/16 05/16/16 00:00 07:15 08:37 Temperature [ 98.0 F 98.2 F Oral] Pulse, 70 Peripheral Pulse, 73 70 Peripheral [ Left Brachial] Pulse, Peripheral [ Left Pulse Oximetry] Respiratory 16 20 Rate Blood Pressure 172/55 H Blood Pressure 170/60 H 172/55 H [Left Upper Arm ] Blood Pressure [Right Upper Arm] O2 Sat by Pulse 98 98 Oximetry 05/16/16 13:39 Temperature [ Oral] Pulse, Peripheral Pulse, Peripheral [ Left Brachial] Pulse, Peripheral [ Left Pulse Oximetry] Respiratory Rate Blood Pressure 172/55 H Blood Pressure [Left Upper Arm ] Blood Pressure [Right Upper Arm] O2 Sat by Pulse Oximetry Weight - Most Recent: 42.638 kg I&O - Last 24 hours: Intake & Output 05/14/16 05/15/16 05/16/16 05/17/16 06:59 06:59 06:59 06:59 Intake Total 950 1695 Balance 950 1695 Lab Results - Last 24 hrs: Laboratory Tests 05/14/16 05/14/16 05/14/16 Range/Units 15:30 15:30 15:30 WBC 5.6 (4.5-12.0) X10-3/uL RBC 4.69 (3.23-5.20) x10(6)uL Hgb 14.3 D (11.5-15.5) g/dL Hct 42.8 (30.0-51.3) % MCV 91.2 (80-96) fL MCH 30.6 (27.7-33.6) pg MCHC 33.5 (32.2-35.4) g/dL RDW 12.9 (11.5-15.5) % Plt Count 178 (125-369) X10(3)uL MPV 8.5 (7.4-10.4) fL Neut % (Auto) 71.9 (46-82) % Lymph % (Auto) 18.3 (13-37) % [place] % (Auto) 7.5 (4-12) % Eos % (Auto) 0 L (1.0-5.0) % Baso % (Auto) 2 (0-2) % Neut # (Auto) 4.1 (1.6-8.3) # Lymph # (Auto) 1.0 (0.6-5.0) # [place] # (Auto) 0.4 (0.0-1.3) # Eos # (Auto) 0.0 (0.0-0.8) # Baso # (Auto) 0.1 (0.0-0.2) # PT 11.0 (8.7-11.1) INR 1.09 (0.89-1.13) Sodium 132 L D (135-145) mmol/L Potassium 3.1 L D (3.5-5.3) mmol/L Chloride 96 L D (100-110) mmol/L Carbon Dioxide 27 (23-29) mmol/L BUN 19 D (8-23) mg/dL Creatinine 1.2 (0.6-1.3) mg/dL Est Cr Clr Drug Dosing TNP Estimated GFR (MDRD) 44 L (>60) BUN/Creatinine Ratio 15.8 (9-20) Glucose 148 H (80-116) mg/dL Calcium 8.2 L (8.6-10.2) mg/dL Total Bilirubin (0.1-1.3) mg/dL AST (5-27) IU/L ALT (14-26) IU/L Alkaline Phosphatase (56-112) IU/L Total Protein (6.0-8.0) g/dL Albumin (3.2-4.6) g/dL Globulin g/dL Albumin/Globulin Ratio Urine Color (YELLOW) Urine Appearance (CLEAR) Urine pH (5.0-6.5) Ur Specific [place] (1.010-1.025) Urine Protein (NEGATIVE) mg/dL Urine Glucose (UA) (NEGATIVE) mg/dL Urine Ketones (NEGATIVE) mg/dL Urine Occult Blood (NEGATIVE) Urine Nitrite (NEGATIVE) Urine Bilirubin (NEGATIVE) Urine Urobilinogen (NEGATIVE) mg/dL Ur Leukocyte Esterase (NEGATIVE) Urine RBC (0) Urine WBC (0) Ur Squamous Epith Cells (NS,R,O) Urine Bacteria (NS) 05/14/16 05/15/16 05/16/16 Range/Units 20:42 11:00 06:45 WBC (4.5-12.0) X10-3/uL RBC (3.23-5.20) x10(6)uL Hgb (11.5-15.5) g/dL Hct (30.0-51.3) % MCV (80-96) fL MCH (27.7-33.6) pg MCHC (32.2-35.4) g/dL RDW (11.5-15.5) % Plt Count (125-369) X10(3)uL MPV (7.4-10.4) fL Neut % (Auto) (46-82) % Lymph % (Auto) (13-37) % [place] % (Auto) (4-12) % Eos % (Auto) (1.0-5.0) % Baso % (Auto) (0-2) % Neut # (Auto) (1.6-8.3) # Lymph # (Auto) (0.6-5.0) # [place] # (Auto) (0.0-1.3) # Eos # (Auto) (0.0-0.8) # Baso # (Auto) (0.0-0.2) # PT (8.7-11.1) INR (0.89-1.13) Sodium 141 142 (135-145) mmol/L Potassium 3.9 3.9 (3.5-5.3) mmol/L Chloride 106 D 105 (100-110) mmol/L Carbon Dioxide 27 28 (23-29) mmol/L BUN 15 13 (8-23) mg/dL Creatinine 0.9 1.1 (0.6-1.3) mg/dL Est Cr Clr Drug Dosing 35.24 28.83 Estimated GFR (MDRD) > 60 48 L (>60) BUN/Creatinine Ratio 16.7 11.8 (9-20) Glucose 107 102 (80-116) mg/dL Calcium 8.2 L 8.5 L (8.6-10.2) mg/dL Total Bilirubin 0.4 0.5 (0.1-1.3) mg/dL AST 40 H D 34 H D (5-27) IU/L ALT 22 D 19 D (14-26) IU/L Alkaline Phosphatase 66 59 (56-112) IU/L Total Protein 6.9 6.5 (6.0-8.0) g/dL Albumin 3.2 3.1 L (3.2-4.6) g/dL Globulin 3.7 3.4 g/dL Albumin/Globulin Ratio 0.9 0.9 Urine Color Yellow (YELLOW) Urine Appearance Clear (CLEAR) Urine pH 6.0 (5.0-6.5) Ur Specific [place] 1.010 (1.010-1.025) Urine Protein 500 H (NEGATIVE) mg/dL Urine Glucose (UA) Normal (NEGATIVE) mg/dL Urine Ketones 15 H (NEGATIVE) mg/dL Urine Occult Blood Trace (NEGATIVE) Urine Nitrite Negative (NEGATIVE) Urine Bilirubin Negative (NEGATIVE) Urine Urobilinogen Normal (NEGATIVE) mg/dL Ur Leukocyte Esterase Small H (NEGATIVE) Urine RBC 0-5 (0) Urine WBC 5-10 (0) Ur Squamous Epith Cells Few H (NS,R,O) Urine Bacteria Few H (NS) LUCAS Results - Last 24 hrs: Microbiology 05/15/16 14:40 Stool Occult Blood (LUCAS) - Final Stool / Feces negative Med Orders - Current: Current Medications Amlodipine Besylate (Norvasc) 10 mg PO DAILY [facility] Last Admin: 05/16/16 13:39 Dose: 10 mg Carvedilol (Coreg) 25 mg PO BID@0800,1800 [facility] Last Admin: 05/16/16 08:37 Dose: 25 mg Clopidogrel Bisulfate (Plavix) 75 mg PO DAILY [facility] Last Admin: 05/16/16 08:47 Dose: 75 mg Dimenhydrinate (Driminate) 100 mg PO BEDTIME [facility] Last Admin: 05/15/16 21:08 Dose: Not Given Hydrochlorothiazide (Hydrochlorothiazide) 25 mg PO DAILY [facility] Last Admin: 05/16/16 08:45 Dose: 25 mg Latanoprost (Xalatan 0.005% Ophth Soln) 0 ml EYEBOTH BEDTIME [facility] Last Admin: 05/15/16 21:08 Dose: Not Given Nitroglycerin (Nitrostat) 0.4 mg SL ASDIRECTED PRN PRN Reason: Chest Pain Isosorbide Mononitrate Er 120 Mg*Own Med* 120 mg PO DAILY [facility] Last Admin: 05/16/16 08:45 Dose: 120 mg Ondansetron HCl (Zofran) 4 mg IV Q4H PRN PRN Reason: Nausea/Vomiting Pantoprazole Sodium (Protonix Iv) 40 mg IVPUSH DAILY [facility] Last Admin: 05/16/16 08:48 Dose: 40 mg Sodium Chloride (Saline Flush) 10 ml FLUSH ASDIRECTED PRN PRN Reason: Keep Vein Open Last Admin: 05/16/16 08:48 Dose: 10 ml Discontinued Medications Carvedilol (Coreg) 25 mg PO ONETIME ONE Stop: 05/15/16 10:27 Last Admin: 05/15/16 11:58 Dose: 25 mg Ciprofloxacin (Ciprofloxacin Hcl) 500 mg PO ONETIME ONE Stop: 05/14/16 21:22 Last Admin: 05/14/16 21:30 Dose: 500 mg Clonidine HCl (Catapres) 0.1 mg PO ONETIME ONE Stop: 05/14/16 14:38 Last Admin: 05/14/16 15:16 Dose: 0.1 mg Hydralazine HCl (Apresoline) 5 mg IVPUSH ONETIME ONE Stop: 05/14/16 20:26 Last Admin: 05/14/16 20:33 Dose: 5 mg Sodium Chloride (Normal Saline) 1,000 mls @ 125 mls/hr IV ASDIRECTED [facility] Last Admin: 05/15/16 06:20 Dose: 125 mls/hr Labetalol HCl (Normodyne) 10 mg IVPUSH ONETIME ONE PRN Reason: Protocol Stop: 05/14/16 14:42 Last Admin: 05/14/16 15:17 Dose: Not Given Labetalol HCl (Normodyne) 5 mg IVPUSH ONETIME ONE PRN Reason: Protocol Stop: 05/14/16 16:08 Last Admin: 05/14/16 16:22 Dose: Not Given Labetalol HCl (Normodyne) Confirm Administered Dose 20 mg .ROUTE .STK-MED ONE Stop: 05/14/16 16:16 Last Admin: 05/14/16 19:08 Dose: Not Given Labetalol HCl (Normodyne) 5 mg IVPUSH NOW ONE PRN Reason: Protocol Stop: 05/14/16 16:09 Last Admin: 05/14/16 16:21 Dose: 5 mg Labetalol HCl (Normodyne) 10 mg IVPUSH ONETIME ONE PRN Reason: Protocol Stop: 05/14/16 16:45 Last Admin: 05/14/16 19:56 Dose: Not Given Labetalol HCl (Normodyne) 10 mg IVPUSH ONETIME ONE PRN Reason: Protocol Stop: 05/14/16 19:12 Last Admin: 05/14/16 19:56 Dose: Not Given Labetalol HCl (Normodyne) 10 mg IVPUSH NOW ONE PRN Reason: Protocol Stop: 05/14/16 19:14 Last Admin: 05/14/16 19:20 Dose: 10 mg Meclizine HCl (Antivert) 25 mg PO ONETIME ONE Stop: 05/14/16 17:01 Last Admin: 05/14/16 17:04 Dose: 25 mg Meclizine HCl (Antivert) 50 mg PO ONETIME STA Stop: 05/14/16 17:15 Last Admin: 05/14/16 19:05 Dose: Not Given Potassium Chloride (Klor-Con M20) 40 meq PO ONETIME ONE Stop: 05/14/16 16:43 Last Admin: 05/14/16 17:04 Dose: 40 meq - Exam General: Reports: alert, oriented, cooperative, no acute distress HEENT: Reports: Pupils equal, Pupils reactive, Mucous membr. moist/pink Neck: Reports: supple, no JVD, carotid bruit (bilat) Lungs: Reports: Clear to auscultation, Normal respiratory effort Cardiovascular: Reports: Regular Rate, Regular Rhythm, Murmurs (2/6 holosystolic radiating into the carotids) Abdomen: Reports: bowel sounds present, soft, no tenderness, no distension. Denies: CVA tenderness Back Exam: Reports: normal inspection, full range of motion Extremities: Reports: no edema, no calf tenderness Skin: Reports: warm, dry Neurological: Reports: no new focal deficit, normal speech, normal tone, strength equal bilateral, sensation intact, cranial nerves intact Psy/Mental Status: Reports: alert, normal affect, normal mood *Q Meaningful Use (DIS) - VTE *Q VTE Criteria *Q: - Stroke *Q Stroke Criteria *Q: - AMI *Q AMI Criteria *Q:
== END 2016-05-16 15:10 | disposition home health service (06) ==
LOC: FB.ED 14:01 → FB.MS 21:47
PROVIDERS: ADMIT Emergency Medicine; ATTEND Family Medicine
DX: I16.0 Hypertensive urgency (principal); I25.10 Atherosclerotic heart disease of native coronary artery without angina pectoris; I13.0 Hypertensive heart and chronic kidney disease with heart failure and stage 1 through stage 4 chronic kidney disease, or unspecified chronic kidney disease; N18.3 Chronic kidney disease, stage 3 (moderate); I50.32 Chronic diastolic (congestive) heart failure; Z88.2 Allergy status to sulfonamides; Z88.8 Allergy status to other drugs, medicaments and biological substances; Z79.82 Long term (current) use of aspirin; Z79.899 Other long term (current) drug therapy; K21.9 Gastro-esophageal reflux disease without esophagitis; Z95.2 Presence of prosthetic heart valve; Z87.891 Personal history of nicotine dependence
CPT/HCPCS: 36415; 70450; 80048; 80053; 81001; 82272; 85025; 85610; 87086; 96361; 96374; 96375; 96376; 99284; A9270; C9113; G0378; J0360; J7040; J7050; 99285

== ENCOUNTER 2020-08-14 08:51 | Inpatient (IN) | payer MEDICARE ==
[2020-08-14] MEDS ORDERED: Ondansetron 4 MG/2 ML SDV IVPUSH STA (09:02)
[2020-08-14] MEDS ORDERED: hydrALAZINE 20 MG/ML SDV IVPUSH STA ×2 (09:02→11:55)
[2020-08-14] MEDS: Sodium Chloride 0.9% 1,000 ML IV SCH ×3 (09:11→15:32)
[2020-08-14] MEDS: Sodium Chloride 0.9% 10 ML Syringe FLUSH PRN ×2 (09:11→18:47)
--- NOTE | 2020-08-14 10:03 | EDM.PDOC ---
ED HPI GENERAL MEDICAL PROBLEM - General Stated Complaint: FEVER Time Seen by Provider: 08/14/20 09:05 Source of Information: Reports: Patient History Limitations: Reports: No Limitations - History of Present Illness INITIAL COMMENTS - FREE TEXT/NARRATIVE: Patient is an 80 YO F who presented to the ED because of a 3 day history of nausea,vomiting, weakness, dizziness and dry cough. She also complains of fever and chills, denies having any abdominal pain, or urinary symptoms. - Related Data Allergies Allergy/AdvReac Type Severity Reaction Status Date / Time hydrocodone Allergy Hallucinati Verified 05/14/16 14:27 ons latanoprost Allergy Itching Verified 11/27/17 12:16 Sulfa (Sulfonamide Allergy Rash Verified 05/14/16 14:27 Antibiotics) Home Meds: Home Meds Aspirin [Adult Low Dose Aspirin EC] 81 mg PO DAILY 10/13/15 [History] Hydrochlorothiazide 25 mg PO DAILY 10/13/15 [History] Nitroglycerin [Nitrostat] 0.4 mg SL ASDIRECTED PRN 10/13/15 [History] amLODIPine [Norvasc] 10 mg PO DAILY 10/13/15 [History] atorvaSTATin [Lipitor] 40 mg PO BEDTIME 10/13/15 [History] carvediloL [Coreg] 25 mg PO BID 10/13/15 [History] dimenhyDRINATE [Dramamine] 100 mg PO BEDTIME 10/13/15 [History] Isosorbide Mononitrate [Isosorbide Mononitrate ER] 120 mg PO DAILY 05/14/16 [History] Alendronate [Fosamax] 70 mg PO PRUITT 05/15/16 [History] Propylene Glycol/Peg 400 [Systane Ultra 0.4-0.3% Eye Drp] 1 drop EYEBOTH QID 11/27/17 [History] Warfarin [Coumadin] 1.25 mg PO SUTUWETHFRSA 11/27/17 [History] Warfarin [Coumadin] 2.5 mg PO MO 11/27/17 [History] Acetaminophen 1,000 mg PO BID 08/14/20 [History] Cholecalciferol (Vitamin D3) [Vitamin D3] 2,000 unit PO DAILY 08/14/20 [History] Ferrous Sulfate [Ferosul] 325 mg PO DAILY 08/14/20 [History] Furosemide [Lasix] 40 mg PO DAILY 08/14/20 [History] hydrALAZINE [Apresoline] 25 mg PO Q12HR 08/14/20 [History] lisinopriL [Lisinopril] 5 mg PO DAILY 08/14/20 [History] Past Medical History HEENT History: Reports: Cataract, Hard of Hearing, Other (See Below) Other HEENT History: wears glasses Cardiovascular History: Reports: Heart Failure, Heart Valve Replacement, SOB on Exertion, Other (See Below) Other Cardiovascular History: 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 2 weeks ago filled up with fluid dr herr changed my meds Respiratory History: Reports: Other (See Below) Other Respiratory History: pneumonia once before not hospitalizwd for Gastrointestinal History: Reports: GERD Genitourinary History: Reports: Urinary Incontinence, UTI, Recurrent Other Genitourinary History: CKD-FOLLOWS WITH NEPHROLOGY STAFF PSYCHOLOGIST History: Reports: Other STAFF PSYCHOLOGIST History: had 4 babys Musculoskeletal History: Reports: Arthritis Other Musculoskeletal History: my hand and knee Neurological History: Reports: Vertigo Other Neuro History: " have vertigo for a long time" Psychiatric History: Reports: Depression Endocrine/Metabolic History: Reports: Osteoporosis Hematologic History: Reports: Anticoagulation Therapy - Infectious Disease History Infectious Disease History: Reports: Measles, Mumps - Past Surgical History Cardiovascular Surgical History: Reports: Coronary Artery Bypass, Valve Replacement Other Female Surgeries/Procedures: Renal u/s scheduled Social & Family History - Family History Family Medical History: No Pertinent Family History - Caffeine Use Caffeine Use: Reports: Coffee, Soda, Tea Other Caffeine Use: 1 cup a day of coffee - Living Situation & Occupation Living situation: Reports: Alone ED ROS GENERAL - Review of Systems Review Of Systems: See Below Constitutional: Reports: No Symptoms HEENT: Reports: No Symptoms Respiratory: Reports: Cough Cardiovascular: Reports: No Symptoms Endocrine: Reports: No Symptoms GI/Abdominal: Reports: Nausea, Vomiting Musculoskeletal: Reports: No Symptoms Skin: Reports: No Symptoms Neurological: Reports: No Symptoms Psychiatric: Reports: No Symptoms Hematologic/Lymphatic: Reports: No Symptoms ED EXAM, GENERAL - Physical Exam Exam: See Below Exam Limited By: No Limitations General Appearance: Alert, No Apparent Distress Ears: Normal External Exam, Normal Canal, Hearing Grossly Normal Nose: Normal Inspection, Normal Mucosa, No Blood Throat/Mouth: Normal Inspection, Normal Lips, Normal Teeth, Normal Gums Head: Atraumatic, Normocephalic Neck: Normal Inspection, Supple, Non-Tender, Full Range of Motion Respiratory/Chest: No Respiratory Distress, Lungs Clear, Decreased Breath Sounds Cardiovascular: Normal Peripheral Pulses, Regular Rate, Rhythm, No Edema, No Gallop GI/Abdominal: Normal Bowel Sounds, Soft, Non-Tender, No Organomegaly Back Exam: Normal Inspection, Full Range of Motion Extremities: Normal Inspection, Normal Range of Motion, Non-Tender Neurological: Alert, Oriented, CN II-XII Intact, Normal Cognition, Normal Gait, Normal Reflexes, No Motor/Sensory Deficits Psychiatric: Normal Affect, Normal Mood Skin Exam: Warm #1 Interpretation EKG Date: 08/14/20 Time: 09:09 Rhythm: NSR Rate (Beats/Min): 71 [place]: Normal P-Wave: Present QRS: Normal ST-T: Normal QT: Normal MD/PQ Interval: 215 Comparison: No Change EKG Interpretation Comments: NSR LVH Prolonged MD Course - Vital Signs Text/Narrative:: Lab/EKG/CXR result was reviewed and discussed with patient and her daughter NS 500 ml Bolus Zofran 4 mg IV x1 Compazine 5 mg IV x1 Hydralazine 20 mg IV x2 Labetalol 20 mg IV x2 Last Recorded V/S: Last Vital Signs Temp 36.8 C 08/14/20 11:45 Pulse 68 08/14/20 11:45 Resp 16 08/14/20 11:45 BP 197/60 H 08/14/20 11:45 Pulse Ox 93 L 08/14/20 11:45 - Orders/Labs/Meds Orders: Active Orders 24 hr Category Date Time Status Patient Status Manage Transfer [TRANSFER] Routine ADT 08/14/20 11:56 Ordered EKG Documentation Completion [RC] ASDIRECTED Care 08/14/20 09:00 Active CULTURE BLOOD [BC] Urgent Lab 08/14/20 10:55 Results CULTURE BLOOD [BC] Urgent Lab 08/14/20 11:05 Received Sodium Chloride 0.9% [Normal Saline] 1,000 ml Med 08/14/20 09:15 Active IV ASDIRECTED Sodium Chloride 0.9% [Saline Flush] Med 08/14/20 08:59 Active 10 ml FLUSH ASDIRECTED PRN cefTRIAXone [Rocephin] Med 08/14/20 12:00 Active 1 gm IVPUSH Q24H Blood Culture x2 Reflex Set [OM.PC] Urgent Oth 08/14/20 10:40 Ordered Saline Lock Insert [OM.PC] Routine Oth 08/14/20 08:59 Ordered EKG 12 Lead [EK] Routine Ther 08/14/20 08:59 Ordered Medication Orders Ceftriaxone Sodium (Ceftriaxone 1 Gm Vial) 1 gm IVPUSH Q24H SHERON Sodium Chloride (Normal Saline) 1,000 mls @ 500 mls/hr IV ASDIRECTED SHERON Last Admin: 08/14/20 09:11 Dose: 500 mls/hr Documented by: KIM Sodium Chloride (Sodium Chloride 0.9% 10 Ml Syringe) 10 ml FLUSH ASDIRECTED PRN PRN Reason: Keep Vein Open Last Admin: 08/14/20 09:11 Dose: 10 ml Documented by: KIM Labs: Laboratory Tests 08/14/20 08/14/20 08/14/20 Range/Units 09:25 09:25 09:25 WBC 4.5 (3.0-10.3) x10-3/uL RBC 3.71 (3.60-5.20) x10(6)uL Hgb 11.8 (11.4-15.5) g/dL Hct 34.9 (34.2-48.2) % MCV 94.1 (76.7-100.5) fL MCH 31.8 (23.9-33.9) pg MCHC 33.8 (31.9-34.8) g/dL RDW 13.0 (12.3-16.5) % Plt Count 241 (151-488) x10(3)uL MPV 8.2 (7.1-12.4) fL Neut % (Auto) 80.6 H (30.8-76.2) % Lymph % (Auto) 11.4 L (18.4-52.1) % [place] % (Auto) 5.4 (4.4-15.7) % Eos % (Auto) 1.7 (0.6-8.1) % Baso % (Auto) 0.9 (0.2-1.5) % Neut # (Auto) 3.6 (1.5-6.3) x10-3/uL Lymph # (Auto) 0.5 L (1.0-4.4) x10-3/uL [place] # (Auto) 0.2 L (0.3-1.0) x10-3/uL Eos # (Auto) 0.1 (0.0-0.8) x10-3/uL Baso # (Auto) 0.0 (0.0-0.1) x10-3/uL PT 18.1 H (9.0-11.1) sec INR 1.74 H (1.00-1.24) Sodium 133 L (135-145) mmol/L Potassium 3.5 (3.5-5.3) mmol/L Chloride 96 L D (100-110) mmol/L Carbon Dioxide 29 (21-32) mmol/L BUN 37 H D (7-18) mg/dL Creatinine 1.8 H (0.55-1.02) mg/dL Est Cr Clr Drug Dosing 14.67 mL/min Estimated GFR (MDRD) 27 L (>60) BUN/Creatinine Ratio 20.6 H (9-20) Glucose 137 H (80-116) mg/dL Lactic Acid (0.4-2.0) mmol/L Calcium 8.5 L (8.6-10.2) mg/dL Total Bilirubin 0.4 (0.1-1.3) mg/dL AST 29 H (5-25) IU/L ALT 23 (12-36) U/L Alkaline Phosphatase 100 (56-112) IU/L Troponin I (4.0-60.3) pg/mL NT-Pro-B Natriuret Pep (<=450) pg/mL Total Protein 6.6 (6.0-8.0) g/dL Albumin 3.1 L (3.2-4.6) g/dL Globulin 3.5 g/dL Albumin/Globulin Ratio 0.9 Urine Color (YELLOW) Urine Appearance (CLEAR) Urine pH (5.0-6.5) Ur Specific [place] (1.010-1.025) Urine Protein (NEGATIVE) mg/dL Urine Glucose (UA) (NORMAL) mg/dL Urine Ketones (NEGATIVE) mg/dL Urine Occult Blood (NEGATIVE) Urine Nitrite (NEGATIVE) Urine Bilirubin (NEGATIVE) Urine Urobilinogen (NEGATIVE) mg/dL Ur Leukocyte Esterase (NEGATIVE) Urine RBC (0-5) Urine WBC (0-5) Ur Squamous Epith Cells (NS,R,O) Urine Bacteria (NS) 08/14/20 08/14/20 08/14/20 Range/Units 09:25 10:55 11:12 WBC (3.0-10.3) x10-3/uL RBC (3.60-5.20) x10(6)uL Hgb (11.4-15.5) g/dL Hct (34.2-48.2) % MCV (76.7-100.5) fL MCH (23.9-33.9) pg MCHC (31.9-34.8) g/dL RDW (12.3-16.5) % Plt Count (151-488) x10(3)uL MPV (7.1-12.4) fL Neut % (Auto) (30.8-76.2) % Lymph % (Auto) (18.4-52.1) % [place] % (Auto) (4.4-15.7) % Eos % (Auto) (0.6-8.1) % Baso % (Auto) (0.2-1.5) % Neut # (Auto) (1.5-6.3) x10-3/uL Lymph # (Auto) (1.0-4.4) x10-3/uL [place] # (Auto) (0.3-1.0) x10-3/uL Eos # (Auto) (0.0-0.8) x10-3/uL Baso # (Auto) (0.0-0.1) x10-3/uL PT (9.0-11.1) sec INR (1.00-1.24) Sodium (135-145) mmol/L Potassium (3.5-5.3) mmol/L Chloride (100-110) mmol/L Carbon Dioxide (21-32) mmol/L BUN (7-18) mg/dL Creatinine (0.55-1.02) mg/dL Est Cr Clr Drug Dosing mL/min Estimated GFR (MDRD) (>60) BUN/Creatinine Ratio (9-20) Glucose (80-116) mg/dL Lactic Acid 0.4 (0.4-2.0) mmol/L Calcium (8.6-10.2) mg/dL Total Bilirubin (0.1-1.3) mg/dL AST (5-25) IU/L ALT (12-36) U/L Alkaline Phosphatase (56-112) IU/L Troponin I 12.7 (4.0-60.3) pg/mL NT-Pro-B Natriuret Pep 4321 H* (<=450) pg/mL Total Protein (6.0-8.0) g/dL Albumin (3.2-4.6) g/dL Globulin g/dL Albumin/Globulin Ratio Urine Color Yellow (YELLOW) Urine Appearance Clear (CLEAR) Urine pH 7.0 H (5.0-6.5) Ur Specific [place] 1.010 (1.010-1.025) Urine Protein 500 H (NEGATIVE) mg/dL Urine Glucose (UA) 50 H (NORMAL) mg/dL Urine Ketones Negative (NEGATIVE) mg/dL Urine Occult Blood Moderate H (NEGATIVE) Urine Nitrite Negative (NEGATIVE) Urine Bilirubin Negative (NEGATIVE) Urine Urobilinogen Normal (NEGATIVE) mg/dL Ur Leukocyte Esterase Negative (NEGATIVE) Urine RBC 0-5 (0-5) Urine WBC 0-5 (0-5) Ur Squamous Epith Cells Few H (NS,R,O) Urine Bacteria Few H (NS) Meds: Medications Generic Name Dose Route Start Last Admin Trade Name Frenury PRN Reason Stop Dose Admin Ceftriaxone Sodium 1 gm 08/14/20 12:00 Ceftriaxone 1 Gm Vial IVPUSH Q24H SHERON Sodium Chloride 1,000 mls @ 500 mls/hr 08/14/20 09:15 08/14/20 09:11 Normal Saline IV 500 mls/hr ASDIRECTED SHERON Administration Sodium Chloride 10 ml 08/14/20 08:59 08/14/20 09:11 Sodium Chloride 0.9% 10 Ml Syringe FLUSH 10 ml ASDIRECTED PRN Administration Keep Vein Open Discontinued Medications Generic Name Dose Route Start Last Admin Trade Name Freq PRN Reason Stop Dose Admin Hydralazine HCl 20 mg 08/14/20 09:02 08/14/20 09:11 Hydralazine 20 Mg/Ml Sdv IVPUSH 08/14/20 09:03 20 mg NOW STA Administration Hydralazine HCl 20 mg 08/14/20 11:55 Hydralazine 20 Mg/Ml Sdv IVPUSH 08/14/20 11:56 NOW STA Prochlorperazine Edisylate 5 51 mls @ 150 mls/hr 08/14/20 10:04 08/14/20 10:26 mg/ Sodium Chloride IV 08/14/20 10:24 150 mls/hr NOW STA Administration Labetalol HCl 20 mg 08/14/20 10:39 08/14/20 10:57 Labetalol 20 Mg/4 Ml Syringe IVPUSH 08/14/20 10:40 20 mg NOW STA Administration Protocol Ondansetron HCl 4 mg 08/14/20 09:02 08/14/20 09:11 Ondansetron 4 Mg/2 Ml Sdv IVPUSH 08/14/20 09:03 4 mg NOW STA Administration Prochlorperazine Edisylate 5 mg 08/14/20 10:05 08/14/20 10:23 Prochlorperazine 10 Mg/2 Ml Sdv IVPUSH 08/14/20 10:06 5 mg ONETIME ONE Administration Departure - Departure Time of Disposition: 12:00 Disposition: Refer to Observation Condition: Good Clinical Impression: Dehydration, KAYDEN (acute kidney injury), Weakness, Pneumonia, CHF (congestive heart failure) HTN (hypertension) Qualifiers: Hypertension type: essential hypertension Qualified Code(s): I10 - Essential (primary) hypertension CKD (chronic kidney disease) Qualifiers: Chronic kidney disease stage: stage 3 (moderate) Qualified Code(s): N18.3 - Chronic kidney disease, stage 3 (moderate) CAD (coronary artery disease) Qualifiers: Coronary Disease-Associated Artery/Lesion type: bypass graft - Discharge Information Sepsis Event Note (ED) - Evaluation Sepsis Screening Result: Possible Sepsis Risk - Focused Exam Vital Signs: Vital Signs Temp Pulse Resp BP Pulse Ox 08/14/20 11:45 36.8 C 68 16 197/60 H 93 L 08/14/20 11:15 37.2 C 67 16 178/58 H 90 L 08/14/20 10:45 36.7 C 72 16 180/70 H 93 L 08/14/20 10:15 36.8 C 73 16 193/54 H 94 L 08/14/20 09:45 72 18 183/53 H 96 08/14/20 09:15 70 16 201/54 H 98 08/14/20 08:59 37.2 C 72 22 H 217/55 H 96 - My Orders Last 24 Hours: My Active Orders 08/14/20 08:59 Sodium Chloride 0.9% [Saline Flush] 10 ml FLUSH ASDIRECTED PRN Saline Lock Insert [OM.PC] Routine EKG 12 Lead [EK] Routine 08/14/20 09:00 EKG Documentation Completion [RC] ASDIRECTED 08/14/20 09:15 Sodium Chloride 0.9% [Normal Saline] 1,000 ml IV ASDIRECTED 08/14/20 10:40 Blood Culture x2 Reflex Set [OM.PC] Urgent 08/14/20 10:55 CULTURE BLOOD [BC] Urgent 08/14/20 11:05 CULTURE BLOOD [BC] Urgent 08/14/20 11:56 Patient Status Manage Transfer [TRANSFER] Routine 08/14/20 12:00 cefTRIAXone [Rocephin] 1 gm IVPUSH Q24H - Assessment/Plan Last 24 Hours: My Active Orders 08/14/20 08:59 Sodium Chloride 0.9% [Saline Flush] 10 ml FLUSH ASDIRECTED PRN Saline Lock Insert [OM.PC] Routine EKG 12 Lead [EK] Routine 08/14/20 09:00 EKG Documentation Completion [RC] ASDIRECTED 08/14/20 09:15 Sodium Chloride 0.9% [Normal Saline] 1,000 ml IV ASDIRECTED 08/14/20 10:40 Blood Culture x2 Reflex Set [OM.PC] Urgent 08/14/20 10:55 CULTURE BLOOD [BC] Urgent 08/14/20 11:05 CULTURE BLOOD [BC] Urgent 08/14/20 11:56 Patient Status Manage Transfer [TRANSFER] Routine 08/14/20 12:00 cefTRIAXone [Rocephin] 1 gm IVPUSH Q24H
[2020-08-14] MEDS ORDERED: Prochlorperazine 5 MG in Sodium Chloride 0.9% 50 ML IV STA (10:04)
[2020-08-14] MEDS ORDERED: Prochlorperazine 10 MG/2 ML SDV IVPUSH ONE (10:05)
[2020-08-14] MEDS ORDERED: Labetalol 20 MG/4 ML Syringe IVPUSH STA ×2 (10:39→12:02)
--- NOTE | 2020-08-14 10:59 | CR ---
INDICATION: Nausea and vomiting. CHEST ONE VIEW: An AP portable upright view of the chest 08/14/20 was compared with 11/27/17. The heart is again noted to be enlarged with post median sternotomy change. The aorta is slightly tortuous with calcification in the arch. Dextroconvex scoliosis mid thoracic spine is noted of mild degree. Upper lung field pulmonary vasculature is prominent raising question of mild CHF. Interstitial markings also appear to be somewhat prominent raising question of a mild degree of interstitial lung edema. Heavy markings at the lung bases make it difficult to exclude minimal patchy bronchopneumonia. There is slight blunting of the costophrenic angles bilaterally which may be on the basis of fibrosis and/or minimal pleural effusions. IMPRESSION: 1. ASHD. 2. Cardiomegaly. 3. CHF. 4. Probable interstitial lung edema with question of minimal patchy bronchopneumonia versus fibrosis at the lung bases. MTDD
[2020-08-14] MEDS: cefTRIAXone 1 GM Vial IVPUSH SCH (12:02)
[2020-08-14] MEDS ORDERED: Nitroglycerin 0.4 MG Tab.SL SL PRN (12:57)
[2020-08-14] MEDS ORDERED: Lisinopril 5 MG Tab PO SCH (13:00)
[2020-08-14] MEDS ORDERED: Ondansetron 4 MG/2 ML SDV IVPUSH PRN (13:02)
[2020-08-14] MEDS ORDERED: Azithromycin 500 MG in Sodium Chloride 0.9% 250 ML IV SCH (13:15)
[2020-08-14] MEDS ORDERED: Polyvinyl Alcohol 1.4% Ophth Soln 15 ML Bottle EYEBOTH PRN (14:00)
[2020-08-14] MEDS: hydrALAZINE 25 MG Tab PO SCH (14:19)
[2020-08-14] MEDS: ISOSORBIDE MONONITRATE 120 MG PO SCH (14:21)
[2020-08-14] MEDS: Carvedilol 25 MG Tab PO SCH ×2 (14:21→20:34)
[2020-08-14] MEDS ORDERED: Warfarin 2.5 MG Tab PO SCH (16:00)
--- NOTE | 2020-08-14 17:28 | PCM.HP.2 ---
H&P History of Present Illness - General Date of Service: 08/14/20 Admit Problem/Dx: Admission Diagnosis/Problem Admission Diagnosis/Problem Dehydration Source of Information: Patient, Old Records, Provider History Limitations: Reports: No Limitations - History of Present Illness Initial Comments - Free Text/Narative: 80-year-old lady with a past medical history significant for coronary artery disease, hypertension, CABG, aortic insufficiency, diastolic heart failure, atri al fibrillation, hyperlipidemia, depression, and chronic kidney disease came to the emergency department for evaluation and treatment of a three-day history of nausea, vomiting, weakness, dry cough, chills/fever, and dizziness. She was evaluated in the emergency department found to have an acute kidney injury, dehydration, and likely community-acquired pneumonia. She was given fluids, started on IV antibiotics. Vital signs showed that she had severe hypertension at 217/155 and acute kidney injury on chronic kidney disease. She will be admitted to observation for treatment. Onset of Symptoms: Reports: Gradual - Related Data Allergies/Adverse Reactions: Allergies Allergy/AdvReac Type Severity Reaction Status Date / Time hydrocodone Allergy Hallucinati Verified 08/14/20 13:33 ons latanoprost Allergy Itching Verified 08/14/20 13:33 Sulfa (Sulfonamide Allergy Rash Verified 08/14/20 13:33 Antibiotics) Home Medications: Home Meds Aspirin [Adult Low Dose Aspirin EC] 81 mg PO DAILY 10/13/15 [History] Hydrochlorothiazide 25 mg PO DAILY 10/13/15 [History] Nitroglycerin [Nitrostat] 0.4 mg SL ASDIRECTED PRN 10/13/15 [History] amLODIPine [Norvasc] 10 mg PO DAILY 10/13/15 [History] atorvaSTATin [Lipitor] 40 mg PO BEDTIME 10/13/15 [History] carvediloL [Coreg] 25 mg PO BID 10/13/15 [History] dimenhyDRINATE [Dramamine] 100 mg PO BEDTIME 10/13/15 [History] Isosorbide Mononitrate [Isosorbide Mononitrate ER] 120 mg PO DAILY 05/14/16 [History] Alendronate [Fosamax] 70 mg PO PRUITT 05/15/16 [History] Propylene Glycol/Peg 400 [Systane Ultra 0.4-0.3% Eye Drp] 1 drop EYEBOTH QID 11/27/17 [History] Warfarin [Coumadin] 1.25 mg PO MOWEFR 11/27/17 [History] Warfarin [Coumadin] 2.5 mg PO SUTUTHSA 11/27/17 [History] Acetaminophen 500 mg PO BID 08/14/20 [History] Cholecalciferol (Vitamin D3) [Vitamin D3] 2,000 unit PO DAILY 08/14/20 [History] Ferrous Sulfate [Ferosul] 325 mg PO DAILY 08/14/20 [History] Furosemide [Lasix] 40 mg PO DAILY 08/14/20 [History] hydrALAZINE [Apresoline] 25 mg PO Q12HR 08/14/20 [History] Past Medical History HEENT History: Reports: Cataract, Hard of Hearing, Other (See Below) Other HEENT History: wears glasses Cardiovascular History: Reports: Heart Failure, Heart Valve Replacement, SOB on Exertion, Other (See Below) Other Cardiovascular History: 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 2 weeks ago filled up with fluid dr herr changed my meds Respiratory History: Reports: Other (See Below) Other Respiratory History: pneumonia once before not hospitalizwd for Gastrointestinal History: Reports: GERD Genitourinary History: Reports: Urinary Incontinence, UTI, Recurrent Other Genitourinary History: 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: Reports: Other OB/BYN History: had 4 babys Musculoskeletal History: Reports: Arthritis Other Musculoskeletal History: my hand and knee Neurological History: Reports: Vertigo Other Neuro History: " have vertigo for a long time" Psychiatric History: Reports: Depression Endocrine/Metabolic History: Reports: Osteoporosis Hematologic History: Reports: Anticoagulation Therapy - Infectious Disease History Infectious Disease History: Reports: Measles, Mumps - Past Surgical History HEENT Surgical History: Reports: Cataract Surgery Other HEENT Surgeries/Procedures: bilat cataract Cardiovascular Surgical History: Reports: Coronary Artery Bypass, Valve Replacement Other Cardiovascular Surgeries/Procedures: 3 vessel CABG Female Surgical History: Reports: Section Other Female Surgeries/Procedures: Renal u/s scheduled Musculoskeletal Surgical History: Reports: Shoulder Surgery Other Musculoskeletal Surgeries/Procedures:: R shoulder surgery 'lump removed' Social & Family History - Family History Family Medical History: No Pertinent Family History - Tobacco Use Tobacco Use Status *Q: Never Tobacco User Second Hand Smoke Exposure: No - Caffeine Use Caffeine Use: Reports: None Other Caffeine Use: 1 cup a day of coffee - Recreational Drug Use Recreational Drug Use: No - Living Situation & Occupation Living situation: Reports: Alone H&P Review of Systems - Review of Systems: Review Of Systems: See Below General: Reports: Fever, Chills, Malaise, Weakness, Fatigue HEENT: Reports: No Symptoms Pulmonary: Reports: Shortness of Breath, Wheezing, Cough Cardiovascular: Reports: No Symptoms Gastrointestinal: Reports: Anorexia, Nausea, Vomiting Genitourinary: Reports: No Symptoms Musculoskeletal: Reports: No Symptoms Skin: Reports: No Symptoms Psychiatric: Reports: Depression Neurological: Reports: Confusion, Dizziness, Headache, Difficulty Walking, W eakness Hematologic/Lymphatic: Reports: No Symptoms Immunologic: Reports: No Symptoms Exam - Exam Exam: See Below - Vital Signs Vital Signs: Last Vital Signs Temp 37.4 C 08/14/20 12:57 Pulse 81 08/14/20 14:21 Resp 16 08/14/20 12:57 BP 174/69 H 08/14/20 14:21 Pulse Ox 93 L 08/14/20 12:57 Weight: 38.192 kg - Exam Quality Assessment: Supplemental Oxygen, DVT Prophylaxis General: Alert, Oriented, Moderate Distress, Lethargic HEENT: EOMI Neck: Supple. No: Lymphadenopathy Lungs: Decreased Breath Sounds, Crackles Cardiovascular: Regular Rate, Regular Rhythm, Systolic Murmur GI/Abdominal Exam: Normal Bowel Sounds, Non-Tender Extremities: Normal Inspection Peripheral Pulses: 2+: Radial (L), Radial (R), Dorsalis Pedis (L), Dorsalis Pedis (R) Skin: Warm, Dry, Intact Neuro Extensive - Mental Status: Alert Psychiatric: Alert, Anxious, Depressed - Patient Data Lab Results Last 24 hrs: Laboratory Results - last 24 hr 08/14/20 08/14/20 08/14/20 Range/Units 09:25 09:25 09:25 WBC 4.5 (3.0-10.3) x10-3/uL RBC 3.71 (3.60-5.20) x10(6)uL Hgb 11.8 (11.4-15.5) g/dL Hct 34.9 (34.2-48.2) % MCV 94.1 (76.7-100.5) fL MCH 31.8 (23.9-33.9) pg MCHC 33.8 (31.9-34.8) g/dL RDW 13.0 (12.3-16.5) % Plt Count 241 (151-488) x10(3)uL MPV 8.2 (7.1-12.4) fL Neut % (Auto) 80.6 H (30.8-76.2) % Lymph % (Auto) 11.4 L (18.4-52.1) % [place] % (Auto) 5.4 (4.4-15.7) % Eos % (Auto) 1.7 (0.6-8.1) % Baso % (Auto) 0.9 (0.2-1.5) % Neut # (Auto) 3.6 (1.5-6.3) x10-3/uL Lymph # (Auto) 0.5 L (1.0-4.4) x10-3/uL [place] # (Auto) 0.2 L (0.3-1.0) x10-3/uL Eos # (Auto) 0.1 (0.0-0.8) x10-3/uL Baso # (Auto) 0.0 (0.0-0.1) x10-3/uL PT 18.1 H (9.0-11.1) sec INR 1.74 H (1.00-1.24) Sodium 133 L (135-145) mmol/L Potassium 3.5 (3.5-5.3) mmol/L Chloride 96 L D (100-110) mmol/L Carbon Dioxide 29 (21-32) mmol/L BUN 37 H D (7-18) mg/dL Creatinine 1.8 H (0.55-1.02) mg/dL Est Cr Clr Drug Dosing 14.67 mL/min Estimated GFR (MDRD) 27 L (>60) BUN/Creatinine Ratio 20.6 H (9-20) Glucose 137 H (80-116) mg/dL Lactic Acid (0.4-2.0) mmol/L Calcium 8.5 L (8.6-10.2) mg/dL Total Bilirubin 0.4 (0.1-1.3) mg/dL AST 29 H (5-25) IU/L ALT 23 (12-36) U/L Alkaline Phosphatase 100 (56-112) IU/L Troponin I (4.0-60.3) pg/mL NT-Pro-B Natriuret Pep (<=450) pg/mL Total Protein 6.6 (6.0-8.0) g/dL Albumin 3.1 L (3.2-4.6) g/dL Globulin 3.5 g/dL Albumin/Globulin Ratio 0.9 Urine Color (YELLOW) Urine Appearance (CLEAR) Urine pH (5.0-6.5) Ur Specific Coleman (1.010-1.025) Urine Protein (NEGATIVE) mg/dL Urine Glucose (UA) (NORMAL) mg/dL Urine Ketones (NEGATIVE) mg/dL Urine Occult Blood (NEGATIVE) Urine Nitrite (NEGATIVE) Urine Bilirubin (NEGATIVE) Urine Urobilinogen (NEGATIVE) mg/dL Ur Leukocyte Esterase (NEGATIVE) Urine RBC (0-5) Urine WBC (0-5) Ur Squamous Epith Cells (NS,R,O) Urine Bacteria (NS) 08/14/20 08/14/20 08/14/20 Range/Units 09:25 10:55 11:12 WBC (3.0-10.3) x10-3/uL RBC (3.60-5.20) x10(6)uL Hgb (11.4-15.5) g/dL Hct (34.2-48.2) % MCV (76.7-100.5) fL MCH (23.9-33.9) pg MCHC (31.9-34.8) g/dL RDW (12.3-16.5) % Plt Count (151-488) x10(3)uL MPV (7.1-12.4) fL Neut % (Auto) (30.8-76.2) % Lymph % (Auto) (18.4-52.1) % [place] % (Auto) (4.4-15.7) % Eos % (Auto) (0.6-8.1) % Baso % (Auto) (0.2-1.5) % Neut # (Auto) (1.5-6.3) x10-3/uL Lymph # (Auto) (1.0-4.4) x10-3/uL [place] # (Auto) (0.3-1.0) x10-3/uL Eos # (Auto) (0.0-0.8) x10-3/uL Baso # (Auto) (0.0-0.1) x10-3/uL PT (9.0-11.1) sec INR (1.00-1.24) Sodium (135-145) mmol/L Potassium (3.5-5.3) mmol/L Chloride (100-110) mmol/L Carbon Dioxide (21-32) mmol/L BUN (7-18) mg/dL Creatinine (0.55-1.02) mg/dL Est Cr Clr Drug Dosing mL/min Estimated GFR (MDRD) (>60) BUN/Creatinine Ratio (9-20) Glucose (80-116) mg/dL Lactic Acid 0.4 (0.4-2.0) mmol/L Calcium (8.6-10.2) mg/dL Total Bilirubin (0.1-1.3) mg/dL AST (5-25) IU/L ALT (12-36) U/L Alkaline Phosphatase (56-112) IU/L Troponin I 12.7 (4.0-60.3) pg/mL NT-Pro-B Natriuret Pep 4321 H* (<=450) pg/mL Total Protein (6.0-8.0) g/dL Albumin (3.2-4.6) g/dL Globulin g/dL Albumin/Globulin Ratio Urine Color Yellow (YELLOW) Urine Appearance Clear (CLEAR) Urine pH 7.0 H (5.0-6.5) Ur Specific Coleman 1.010 (1.010-1.025) Urine Protein 500 H (NEGATIVE) mg/dL Urine Glucose (UA) 50 H (NORMAL) mg/dL Urine Ketones Negative (NEGATIVE) mg/dL Urine Occult Blood Moderate H (NEGATIVE) Urine Nitrite Negative (NEGATIVE) Urine Bilirubin Negative (NEGATIVE) Urine Urobilinogen Normal (NEGATIVE) mg/dL Ur Leukocyte Esterase Negative (NEGATIVE) Urine RBC 0-5 (0-5) Urine WBC 0-5 (0-5) Ur Squamous Epith Cells Few H (NS,R,O) Urine Bacteria Few H (NS) Result Diagrams: 08/14/20 09:25 08/14/20 09:25 Harvey Results Last 24 hrs: Microbiology 08/14/20 10:55 Anaerobic Blood Culture - Final Blood - Venous Sepsis Event Note - Evaluation Sepsis Screening Result: No Definite Risk - Focused Exam Vital Signs: Vital Signs Temp Pulse Pulse Resp BP BP Pulse Ox 08/14/20 14:21 81 174/69 H 08/14/20 14:19 174/69 H 08/14/20 12:57 37.4 C 70 16 174/69 H 93 L 08/14/20 12:43 94 L 08/14/20 11:45 36.8 C 68 16 197/60 H 93 L 08/14/20 11:15 37.2 C 67 16 178/58 H 90 L 08/14/20 10:45 36.7 C 72 16 180/70 H 93 L 08/14/20 10:15 36.8 C 73 16 193/54 H 94 L 08/14/20 09:45 72 18 183/53 H 96 08/14/20 09:15 70 16 201/54 H 98 08/14/20 08:59 37.2 C 72 22 H 217/55 H 96 - Problem List (1) Hypertensive emergency SNOMED Code(s): 036412603044386 ICD Code: I16.1 - HYPERTENSIVE EMERGENCY Status: Acute Current Visit: Yes (2) KAYDEN (acute kidney injury) SNOMED Code(s): 19114566, 62466351 ICD Code: N17.9 - ACUTE KIDNEY FAILURE, UNSPECIFIED Status: Acute Current Visit: Yes (3) CHF (congestive heart failure) SNOMED Code(s): 06654241 ICD Code: I50.9 - HEART FAILURE, UNSPECIFIED Status: Chronic Current V isit: Yes (4) Dehydration SNOMED Code(s): 17478007 ICD Code: E86.0 - DEHYDRATION Status: Acute Current Visit: Yes (5) Pneumonia SNOMED Code(s): 966171630 ICD Code: J18.9 - PNEUMONIA, UNSPECIFIED ORGANISM Status: Acute Current Visit: Yes (6) Weakness SNOMED Code(s): 60537938 ICD Code: R53.1 - WEAKNESS Status: Acute Current Visit: Yes (7) CAD (coronary artery disease) SNOMED Code(s): 94542068 ICD Code: I25.10 - ATHSCL HEART DISEASE OF [place] CORONARY ARTERY W/O ANG PCTRS Status: Chronic Current Visit: Yes Qualifiers: Coronary Disease-Associated Artery/Lesion type: bypass graft (8) CKD (chronic kidney disease) SNOMED Code(s): 988389187 ICD Code: N18.9 - CHRONIC KIDNEY DISEASE, UNSPECIFIED Status: Chronic Current Visit: Yes Qualifiers: Chronic kidney disease stage: stage 3 (moderate) (9) HTN (hypertension) SNOMED Code(s): 61823478 ICD Code: I10 - ESSENTIAL (PRIMARY) HYPERTENSION Status: Chronic Current Visit: Yes Qualifiers: Hypertension type: essential hypertension Qualified Code(s): I10 - Essential (primary) hypertension (10) Afib SNOMED Code(s): 11944564 ICD Code: I48.91 - UNSPECIFIED ATRIAL FIBRILLATION Status: Chronic Current Visit: No Qualifiers: Atrial fibrillation type: permanent (11) Hyperlipemia, mixed SNOMED Code(s): 109989999 ICD Code: E78.2 - MIXED HYPERLIPIDEMIA Status: Chronic Current Visit: No (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 SNOMED Code(s): 595329262 ICD Code: Z79.01 - FDC (CURRENT) USE OF ANTICOAGULANTS Status: Chronic Current Visit: No (13) Unsteady gait SNOMED Code(s): 58456065 ICD Code: R26.81 - UNSTEADINESS ON FEET Status: Acute Current Visit: No (14) Palliative care encounter SNOMED Code(s): 221634257, 043624478 ICD Code: Z51.5 - ENCOUNTER FOR PALLIATIVE CARE Status: Acute Current Visit: Yes (15) Palliative care encounter SNOMED Code(s): 731424778, 481421936 ICD Code: Z51.5 - ENCOUNTER FOR PALLIATIVE CARE Status: Acute Current Visit: Yes Problem List Initiated/Reviewed/Updated: Yes Orders Last 24hrs: Active Orders 24 hr Category Date Time Status Patient Status [ADT] Routine ADT 08/14/20 12:43 Active Dietary Supplements [RC] WITHMEALSANDBED Care 08/14/20 13:06 Active Pulse Oximetry [RC] .PRN Care 08/14/20 12:43 Active Up With Assistance [RC] ASDIRECTED Care 08/14/20 12:43 Active Up to Chair [RC] ASDIRECTED Care 08/14/20 12:43 Active VTE/DVT Education [RC] Click to Edit Care 08/14/20 12:46 Active Vital Signs [RC] 08,16,00 Care 08/14/20 12:43 Active Cardiac Diet [Heart Healthy Diet] [DIET] Diet 08/14/20 Dinner Active CULTURE BLOOD [BC] Urgent Lab 08/14/20 10:55 Results CULTURE BLOOD [BC] Urgent Lab 08/14/20 11:05 Received INR,PT,PROTHROMBIN TIME [COAG] DAILY Lab 08/15/20 07:00 Ordered INR,PT,PROTHROMBIN TIME [COAG] DAILY Lab 08/16/20 07:00 Ordered INR,PT,PROTHROMBIN TIME [COAG] DAILY Lab 08/17/20 07:00 Ordered Aspirin [Halfprin] Med 08/15/20 09:00 Active 81 mg PO DAILY Isosorbide Mononitrate [Isosorbide Mononitrate ER] Med 08/14/20 14:00 Active 120 mg PO DAILY Nitroglycerin [Nitrostat] Med 08/14/20 12:57 Active 0.4 mg SL ASDIRECTED PRN Ondansetron [Zofran] Med 08/14/20 13:02 Active 4 mg IVPUSH Q4H PRN Polyvinyl Alcohol [LiquiTears 1.4% Ophth Soln] Med 08/14/20 14:00 Active 0 ml EYEBOTH QID PRN Sodium Chloride 0.9% [Normal Saline] 1,000 ml Med 08/14/20 09:15 Active IV ASDIRECTED Sodium Chloride 0.9% [Saline Flush] Med 08/14/20 08:59 Active 10 ml FLUSH ASDIRECTED PRN Warfarin Sliding Scale [Coumadin Sliding Scale] Med 08/15/20 11:30 Pending 1 each PO ASDIRECTED Warfarin [Coumadin] Med 08/14/20 16:00 Active 1.25 mg PO MoWeFr@1600 Warfarin [Coumadin] Med 08/15/20 16:00 Active 2.5 mg PO SuTuThSa@1600 amLODIPine [Norvasc] Med 08/15/20 14:00 Active 10 mg PO DAILY atorvaSTATin [Lipitor] Med 08/14/20 21:00 Active 40 mg PO BEDTIME carvediloL [Coreg] Med 08/14/20 13:00 Active 25 mg PO BID cefTRIAXone [Rocephin] Med 08/14/20 12:00 Active 1 gm IVPUSH Q24H hydrALAZINE [Apresoline] Med 08/14/20 12:57 Active 10 mg IVPUSH Q2H PRN hydrALAZINE [Apresoline] Med 08/14/20 13:00 Active 25 mg PO Q12H hydroCHLOROthiazide Med 08/15/20 09:00 Active 25 mg PO DAILY Blood Culture x2 Reflex Set [OM.PC] Urgent Oth 08/14/20 10:40 Ordered DVT/VTE Prophylaxis Reflex [OM.PC] Per Unit Routine Oth 08/14/20 12:43 Ordered Saline Lock Insert [OM.PC] Routine Oth 08/14/20 08:59 Ordered Resuscitation Status Routine Resus Stat 08/14/20 12:43 Ordered EKG 12 Lead [EK] Routine Ther 08/14/20 08:59 Stop Req Medication Orders Amlodipine Besylate (Amlodipine 10 Mg Tab *Ptom*) 10 mg PO DAILY [facility] Artificial Tears (Polyvinyl Alcohol 1.4% Ophth Soln 15 Ml Bottle) 0 ml EYEBOTH QID PRN PRN Reason: DRY EYES Aspirin (Aspirin 81 Mg Tab.Ec *Ptom*) 81 mg PO DAILY [facility] Atorvastatin Calcium (Atorvastatin 40 Mg Tab *Ptom*) 40 mg PO BEDTIME [facility] Carvedilol (Carvedilol 25 Mg Tab *Ptom*) 25 mg PO BID [facility] Last Admin: 08/14/20 14:21 Dose: 25 mg Documented by: [id number] Ceftriaxone Sodium (Ceftriaxone 1 Gm Vial) 1 gm IVPUSH Q24H [facility] Last Admin: 08/14/20 12:02 Dose: 1 gm Documented by: KIM Hydralazine HCl (Hydralazine 25 Mg Tab *Ptom*) 25 mg PO Q12H [facility] Last Admin: 08/14/20 14:19 Dose: 25 mg Documented by: [id number] Hydralazine HCl (Hydralazine 20 Mg/Ml Sdv) 10 mg IVPUSH Q2H PRN PRN Reason: Hypertension Hydrochlorothiazide (Hydrochlorothiazide 25 Mg Tab *Ptom*) 25 mg PO DAILY [facility] Sodium Chloride (Normal Saline) 1,000 mls @ 500 mls/hr IV ASDIRECTED [facility] Last Admin: 08/14/20 15:32 Dose: 125 mls/hr Documented by: Infusion: 08/14/20 15:22 Dose: 500 mls/hr Documented by: Admin: 08/14/20 13:22 Dose: 500 mls/hr Documented by: Infusion: 08/14/20 11:11 Dose: 500 mls/hr Documented by: Admin: 08/14/20 09:11 Dose: 500 mls/hr Documented by: KIM Nitroglycerin (Nitroglycerin 0.4 Mg Tab.Sl) 0.4 mg SL ASDIRECTED PRN PRN Reason: Chest Pain Isosorbide Mononitrate Er 120 Mg *Ptom* 120 mg PO DAILY [facility] Last Admin: 08/14/20 14:21 Dose: 120 mg Documented by: SILVINA Ondansetron HCl (Ondansetron 4 Mg/2 Ml Sdv) 4 mg IVPUSH Q4H PRN PRN Reason: Nausea/Vomiting Sodium Chloride (Sodium Chloride 0.9% 10 Ml Syringe) 10 ml FLUSH ASDIRECTED PRN PRN Reason: Keep Vein Open Last Admin: 08/14/20 09:11 Dose: 10 ml Documented by: KIM Warfarin Sodium (Warfarin Sliding Scale) 1 each PO ASDIRECTED [facility] Warfarin Sodium (Warfarin 2.5 Mg Tab *Ptom) 2.5 mg PO SuTuThSa@1600 [facility] Warfarin Sodium (Warfarin 2.5 Mg Tab *Ptom) 1.25 mg PO MoWeFr@1600 [facility] Last Admin: 08/14/20 16:42 Dose: 1.25 mg Documented by: FÁTIMA Assessment/Plan Comment:: 1. Patient admitted to observation status. It is likely that patient has some sort of viral illness causing her to have nausea and vomiting and that she was unable to take her medications as directed and suffered dehydration and hypertensive emergency secondary to fluid loss and inability to take her medications 2. Continue home medical treatment as above for chronic conditions 3. Ceftriaxone for community-acquired pneumonia 4. DVT prophylaxis: Continue home Coumadin 5. GI prophylaxis: Protonix, heart healthy diet 6. Disposition: Likely 2 days. Patient was given IV fluids in the shoe department and antihypertensive medication and her blood pressure has artery begun to improve. We will continue to check labs for improvement in renal function.
[2020-08-14] MEDS: hydrALAZINE 20 MG/ML SDV IVPUSH PRN (18:47)
[2020-08-14] MEDS: atorvaSTATin 40 MG Tab PO SCH (20:33)
[2020-08-15] MEDS: hydrALAZINE 25 MG Tab PO SCH ×2 (00:47→13:04)
[2020-08-15] MEDS: hydrALAZINE 20 MG/ML SDV IVPUSH PRN (06:18)
[2020-08-15] MEDS: Sodium Chloride 0.9% 10 ML Syringe FLUSH PRN (06:37)
[2020-08-15] MEDS: ISOSORBIDE MONONITRATE 120 MG PO SCH (08:00)
[2020-08-15] MEDS: Carvedilol 25 MG Tab PO SCH ×2 (08:00→20:00)
[2020-08-15] MEDS: Aspirin 81 MG Tab.EC PO SCH (08:00)
[2020-08-15] MEDS: Hydrochlorothiazide 25 MG Tab PO SCH (08:00)
--- NOTE | 2020-08-15 08:38 | PCM.PN ---
- General Info Date of Service: 08/15/20 Admission Dx/Problem (Free Text): Admission Diagnosis/Problem Admission Diagnosis/Problem Dehydration Subjective Update: Patient states that she does not feel much better today. She is having difficulty breathing and has pleuritic chest pain. She has tried eating solid food and was only able to eat a couple of bites and does not feel hungry Functional Status: Reports: Pain Controlled, Ambulating, Urinating - Review of Systems General: Reports: Weakness, Fatigue, Malaise. Denies: Appetite HEENT: Reports: No Symptoms Pulmonary: Reports: Shortness of Breath, Pleuritic Chest Pain, Cough Cardiovascular: Reports: No Symptoms Gastrointestinal: Reports: Decreased Appetite Genitourinary: Reports: No Symptoms Musculoskeletal: Reports: No Symptoms Skin: Reports: No Symptoms Neurological: Reports: No Symptoms Psychiatric: Reports: Depression - Patient Data Vitals - Most Recent: Last Vital Signs Temp 37.0 C 08/15/20 07:51 Pulse 63 08/15/20 08:00 Resp 15 08/15/20 07:51 BP 179/57 H 08/15/20 08:00 Pulse Ox 93 L 08/15/20 07:51 Weight - Most Recent: 38.192 kg I&O - Last 24 Hours: Intake & Output 08/14/20 08/15/20 08/15/20 22:59 06:59 14:59 Intake Total 100 Balance 100 Lab Results Last 24 Hours: Laboratory Results - last 24 hr 08/14/20 08/14/20 08/14/20 Range/Units 09:25 09:25 09:25 WBC 4.5 (3.0-10.3) x10-3/uL RBC 3.71 (3.60-5.20) x10(6)uL Hgb 11.8 (11.4-15.5) g/dL Hct 34.9 (34.2-48.2) % MCV 94.1 (76.7-100.5) fL MCH 31.8 (23.9-33.9) pg MCHC 33.8 (31.9-34.8) g/dL RDW 13.0 (12.3-16.5) % Plt Count 241 (151-488) x10(3)uL MPV 8.2 (7.1-12.4) fL Neut % (Auto) 80.6 H (30.8-76.2) % Lymph % (Auto) 11.4 L (18.4-52.1) % [place] % (Auto) 5.4 (4.4-15.7) % Eos % (Auto) 1.7 (0.6-8.1) % Baso % (Auto) 0.9 (0.2-1.5) % Neut # (Auto) 3.6 (1.5-6.3) x10-3/uL Lymph # (Auto) 0.5 L (1.0-4.4) x10-3/uL [place] # (Auto) 0.2 L (0.3-1.0) x10-3/uL Eos # (Auto) 0.1 (0.0-0.8) x10-3/uL Baso # (Auto) 0.0 (0.0-0.1) x10-3/uL PT 18.1 H (9.0-11.1) sec INR 1.74 H (1.00-1.24) Sodium 133 L (135-145) mmol/L Potassium 3.5 (3.5-5.3) mmol/L Chloride 96 L D (100-110) mmol/L Carbon Dioxide 29 (21-32) mmol/L BUN 37 H D (7-18) mg/dL Creatinine 1.8 H (0.55-1.02) mg/dL Est Cr Clr Drug Dosing 14.67 mL/min Estimated GFR (MDRD) 27 L (>60) BUN/Creatinine Ratio 20.6 H (9-20) Glucose 137 H (80-116) mg/dL Lactic Acid (0.4-2.0) mmol/L Calcium 8.5 L (8.6-10.2) mg/dL Total Bilirubin 0.4 (0.1-1.3) mg/dL AST 29 H (5-25) IU/L ALT 23 (12-36) U/L Alkaline Phosphatase 100 (56-112) IU/L Troponin I (4.0-60.3) pg/mL NT-Pro-B Natriuret Pep (<=450) pg/mL Total Protein 6.6 (6.0-8.0) g/dL Albumin 3.1 L (3.2-4.6) g/dL Globulin 3.5 g/dL Albumin/Globulin Ratio 0.9 Urine Color (YELLOW) Urine Appearance (CLEAR) Urine pH (5.0-6.5) Ur Specific [place] (1.010-1.025) Urine Protein (NEGATIVE) mg/dL Urine Glucose (UA) (NORMAL) mg/dL Urine Ketones (NEGATIVE) mg/dL Urine Occult Blood (NEGATIVE) Urine Nitrite (NEGATIVE) Urine Bilirubin (NEGATIVE) Urine Urobilinogen (NEGATIVE) mg/dL Ur Leukocyte Esterase (NEGATIVE) Urine RBC (0-5) Urine WBC (0-5) Ur Squamous Epith Cells (NS,R,O) Urine Bacteria (NS) 08/14/20 08/14/20 08/14/20 Range/Units 09:25 10:55 11:12 WBC (3.0-10.3) x10-3/uL RBC (3.60-5.20) x10(6)uL Hgb (11.4-15.5) g/dL Hct (34.2-48.2) % MCV (76.7-100.5) fL MCH (23.9-33.9) pg MCHC (31.9-34.8) g/dL RDW (12.3-16.5) % Plt Count (151-488) x10(3)uL MPV (7.1-12.4) fL Neut % (Auto) (30.8-76.2) % Lymph % (Auto) (18.4-52.1) % [place] % (Auto) (4.4-15.7) % Eos % (Auto) (0.6-8.1) % Baso % (Auto) (0.2-1.5) % Neut # (Auto) (1.5-6.3) x10-3/uL Lymph # (Auto) (1.0-4.4) x10-3/uL [place] # (Auto) (0.3-1.0) x10-3/uL Eos # (Auto) (0.0-0.8) x10-3/uL Baso # (Auto) (0.0-0.1) x10-3/uL PT (9.0-11.1) sec INR (1.00-1.24) Sodium (135-145) mmol/L Potassium (3.5-5.3) mmol/L Chloride (100-110) mmol/L Carbon Dioxide (21-32) mmol/L BUN (7-18) mg/dL Creatinine (0.55-1.02) mg/dL Est Cr Clr Drug Dosing mL/min Estimated GFR (MDRD) (>60) BUN/Creatinine Ratio (9-20) Glucose (80-116) mg/dL Lactic Acid 0.4 (0.4-2.0) mmol/L Calcium (8.6-10.2) mg/dL Total Bilirubin (0.1-1.3) mg/dL AST (5-25) IU/L ALT (12-36) U/L Alkaline Phosphatase (56-112) IU/L Troponin I 12.7 (4.0-60.3) pg/mL NT-Pro-B Natriuret Pep 4321 H* (<=450) pg/mL Total Protein (6.0-8.0) g/dL Albumin (3.2-4.6) g/dL Globulin g/dL Albumin/Globulin Ratio Urine Color Yellow (YELLOW) Urine Appearance Clear (CLEAR) Urine pH 7.0 H (5.0-6.5) Ur Specific [place] 1.010 (1.010-1.025) Urine Protein 500 H (NEGATIVE) mg/dL Urine Glucose (UA) 50 H (NORMAL) mg/dL Urine Ketones Negative (NEGATIVE) mg/dL Urine Occult Blood Moderate H (NEGATIVE) Urine Nitrite Negative (NEGATIVE) Urine Bilirubin Negative (NEGATIVE) Urine Urobilinogen Normal (NEGATIVE) mg/dL Ur Leukocyte Esterase Negative (NEGATIVE) Urine RBC 0-5 (0-5) Urine WBC 0-5 (0-5) Ur Squamous Epith Cells Few H (NS,R,O) Urine Bacteria Few H (NS) 08/15/20 08/15/20 08/15/20 Range/Units 06:10 06:10 06:10 WBC 8.2 (3.0-10.3) x10-3/uL RBC 3.55 L (3.60-5.20) x10(6)uL Hgb 11.3 L (11.4-15.5) g/dL Hct 33.9 L (34.2-48.2) % MCV 95.5 (76.7-100.5) fL MCH 31.7 (23.9-33.9) pg MCHC 33.2 (31.9-34.8) g/dL RDW 13.1 (12.3-16.5) % Plt Count 238 (151-488) x10(3)uL MPV 7.8 (7.1-12.4) fL Neut % (Auto) 84.8 H (30.8-76.2) % Lymph % (Auto) 7.3 L (18.4-52.1) % [place] % (Auto) 6.4 (4.4-15.7) % Eos % (Auto) 0.8 (0.6-8.1) % Baso % (Auto) 0.7 (0.2-1.5) % Neut # (Auto) 7.0 H (1.5-6.3) x10-3/uL Lymph # (Auto) 0.6 L (1.0-4.4) x10-3/uL [place] # (Auto) 0.5 (0.3-1.0) x10-3/uL Eos # (Auto) 0.1 (0.0-0.8) x10-3/uL Baso # (Auto) 0.1 (0.0-0.1) x10-3/uL PT 18.8 H (9.0-11.1) sec INR 1.81 H (1.00-1.24) Sodium 137 (135-145) mmol/L Potassium 3.7 (3.5-5.3) mmol/L Chloride 100 (100-110) mmol/L Carbon Dioxide 27 (21-32) mmol/L BUN 36 H (7-18) mg/dL Creatinine 2.0 H* (0.55-1.02) mg/dL Est Cr Clr Drug Dosing 13.08 mL/min Estimated GFR (MDRD) 24 L (>60) BUN/Creatinine Ratio 18.0 (9-20) Glucose 143 H (80-116) mg/dL Lactic Acid (0.4-2.0) mmol/L Calcium 8.2 L (8.6-10.2) mg/dL Total Bilirubin (0.1-1.3) mg/dL AST (5-25) IU/L ALT (12-36) U/L Alkaline Phosphatase (56-112) IU/L Troponin I (4.0-60.3) pg/mL NT-Pro-B Natriuret Pep (<=450) pg/mL Total Protein (6.0-8.0) g/dL Albumin (3.2-4.6) g/dL Globulin g/dL Albumin/Globulin Ratio Urine Color (YELLOW) Urine Appearance (CLEAR) Urine pH (5.0-6.5) Ur Specific [place] (1.010-1.025) Urine Protein (NEGATIVE) mg/dL Urine Glucose (UA) (NORMAL) mg/dL Urine Ketones (NEGATIVE) mg/dL Urine Occult Blood (NEGATIVE) Urine Nitrite (NEGATIVE) Urine Bilirubin (NEGATIVE) Urine Urobilinogen (NEGATIVE) mg/dL Ur Leukocyte Esterase (NEGATIVE) Urine RBC (0-5) Urine WBC (0-5) Ur Squamous Epith Cells (NS,R,O) Urine Bacteria (NS) Harvey Results Last 24 Hours: Microbiology 08/14/20 10:55 Anaerobic Blood Culture - Final Blood - Venous Med Orders - Current: Current Medications Albuterol/Ipratropium (Albuterol/Ipratropium 3.0-0.5 Mg/3 Ml Neb Soln) 3 ml NEB Q2H PRN PRN Reason: Wheezing Amlodipine Besylate (Amlodipine 10 Mg Tab *Ptom*) 10 mg PO DAILY [facility] Artificial Tears (Polyvinyl Alcohol 1.4% Ophth Soln 15 Ml Bottle) 0 ml EYEBOTH QID PRN PRN Reason: DRY EYES Aspirin (Aspirin 81 Mg Tab.Ec *Ptom*) 81 mg PO DAILY [facility] Last Admin: 08/15/20 08:00 Dose: 81 mg Documented by: Atorvastatin Calcium (Atorvastatin 40 Mg Tab *Ptom*) 40 mg PO BEDTIME [facility] Last Admin: 08/14/20 20:33 Dose: 40 mg Documented by: Carvedilol (Carvedilol 25 Mg Tab *Ptom*) 25 mg PO BID [facility] Last Admin: 08/15/20 08:00 Dose: 25 mg Documented by: Ceftriaxone Sodium (Ceftriaxone 1 Gm Vial) 1 gm IVPUSH Q24H [facility] Last Admin: 08/14/20 12:02 Dose: 1 gm Documented by: Hydralazine HCl (Hydralazine 25 Mg Tab *Ptom*) 25 mg PO Q12H [facility] Last Admin: 08/15/20 00:47 Dose: 25 mg Documented by: Hydralazine HCl (Hydralazine 20 Mg/Ml Sdv) 10 mg IVPUSH Q2H PRN PRN Reason: Hypertension Last Admin: 08/15/20 06:18 Dose: 10 mg Documented by: Hydrochlorothiazide (Hydrochlorothiazide 25 Mg Tab *Ptom*) 25 mg PO DAILY [facility] Last Admin: 08/15/20 08:00 Dose: 25 mg Documented by: Nitroglycerin (Nitroglycerin 0.4 Mg Tab.Sl) 0.4 mg SL ASDIRECTED PRN PRN Reason: Chest Pain Isosorbide Mononitrate Er 120 Mg *Ptom* 120 mg PO DAILY [facility] Last Admin: 08/15/20 08:00 Dose: 120 mg Documented by: Ondansetron HCl (Ondansetron 4 Mg/2 Ml Sdv) 4 mg IVPUSH Q4H PRN PRN Reason: Nausea/Vomiting Sodium Chloride (Sodium Chloride 0.9% 10 Ml Syringe) 10 ml FLUSH ASDIRECTED PRN PRN Reason: Keep Vein Open Last Admin: 08/15/20 06:37 Dose: 10 ml Documented by: Warfarin Sodium (Warfarin Sliding Scale) 1 each PO ASDIRECTED [facility] Warfarin Sodium (Warfarin 2.5 Mg Tab *Ptom) 2.5 mg PO SuTuThSa@1600 [facility] Warfarin Sodium (Warfarin 2.5 Mg Tab *Ptom) 1.25 mg PO MoWeFr@1600 [facility] Last Admin: 08/14/20 16:42 Dose: 1.25 mg Documented by: Discontinued Medications Hydralazine HCl (Hydralazine 20 Mg/Ml Sdv) 20 mg IVPUSH NOW STA Stop: 08/14/20 09:03 Last Admin: 08/14/20 09:11 Dose: 20 mg Documented by: Hydralazine HCl (Hydralazine 20 Mg/Ml Sdv) 20 mg IVPUSH NOW STA Stop: 08/14/20 11:56 Last Admin: 08/14/20 12:02 Dose: 20 mg Documented by: Sodium Chloride (Normal Saline) 1,000 mls @ 500 mls/hr IV ASDIRECTED [facility] Last Admin: 08/14/20 15:32 Dose: 125 mls/hr Documented by: Prochlorperazine Edisylate 5 (mg/ Sodium Chloride) 51 mls @ 150 mls/hr IV NOW STA Stop: 08/14/20 10:24 Last Admin: 08/14/20 10:26 Dose: 150 mls/hr Documented by: Azithromycin 500 mg/ Sodium (Chloride) 250 mls @ 250 mls/hr IV Q24H [facility] Stop: 08/16/20 23:55 Labetalol HCl (Labetalol 20 Mg/4 Ml Syringe) 20 mg IVPUSH NOW STA; Protocol Stop: 08/14/20 10:40 Last Admin: 08/14/20 10:57 Dose: 20 mg Documented by: Labetalol HCl (Labetalol 20 Mg/4 Ml Syringe) 20 mg IVPUSH NOW STA; Protocol Stop: 08/14/20 12:03 Last Admin: 08/14/20 12:06 Dose: 20 mg Documented by: Ondansetron HCl (Ondansetron 4 Mg/2 Ml Sdv) 4 mg IVPUSH NOW STA Stop: 08/14/20 09:03 Last Admin: 08/14/20 09:11 Dose: 4 mg Documented by: Prochlorperazine Edisylate (Prochlorperazine 10 Mg/2 Ml Sdv) 5 mg IVPUSH ONETIME ONE Stop: 08/14/20 10:06 Last Admin: 08/14/20 10:23 Dose: 5 mg Documented by: Comments:: Patient was lying in bed on her right side, awake, oriented, pleasant, appears fatigued - Exam Quality Assessment: Supplemental Oxygen, DVT Prophylaxis General: Alert, Oriented, Cooperative, Mild Distress HEENT: EOMI Neck: Supple Lungs: Decreased Breath Sounds, Crackles, Rhonchi, Wheezing, Other (Improved airflow today with increased crackles and wheezes please secondary to better air movement) Cardiovascular: Regular Rate, Regular Rhythm, Murmurs GI/Abdominal Exam: Normal Bowel Sounds, Non-Tender Extremities: Pedal Edema, Other (Trace bilateral pitting edema) Peripheral Pulses: 1+: Dorsalis Pedis (L), Dorsalis Pedis (R), 2+: Radial (L), Radial (R) Skin: Warm, Dry, Intact Neurological: No New Focal Deficit Psy/Mental Status: Alert, Normal Affect, Depressed - Patient Data Lab Results Last 24 hrs: Laboratory Results - last 24 hr 08/14/20 08/14/20 08/14/20 Range/Units 09:25 09:25 09:25 WBC 4.5 (3.0-10.3) x10-3/uL RBC 3.71 (3.60-5.20) x10(6)uL Hgb 11.8 (11.4-15.5) g/dL Hct 34.9 (34.2-48.2) % MCV 94.1 (76.7-100.5) fL MCH 31.8 (23.9-33.9) pg MCHC 33.8 (31.9-34.8) g/dL RDW 13.0 (12.3-16.5) % Plt Count 241 (151-488) x10(3)uL MPV 8.2 (7.1-12.4) fL Neut % (Auto) 80.6 H (30.8-76.2) % Lymph % (Auto) 11.4 L (18.4-52.1) % [place] % (Auto) 5.4 (4.4-15.7) % Eos % (Auto) 1.7 (0.6-8.1) % Baso % (Auto) 0.9 (0.2-1.5) % Neut # (Auto) 3.6 (1.5-6.3) x10-3/uL Lymph # (Auto) 0.5 L (1.0-4.4) x10-3/uL [place] # (Auto) 0.2 L (0.3-1.0) x10-3/uL Eos # (Auto) 0.1 (0.0-0.8) x10-3/uL Baso # (Auto) 0.0 (0.0-0.1) x10-3/uL PT 18.1 H (9.0-11.1) sec INR 1.74 H (1.00-1.24) Sodium 133 L (135-145) mmol/L Potassium 3.5 (3.5-5.3) mmol/L Chloride 96 L D (100-110) mmol/L Carbon Dioxide 29 (21-32) mmol/L BUN 37 H D (7-18) mg/dL Creatinine 1.8 H (0.55-1.02) mg/dL Est Cr Clr Drug Dosing 14.67 mL/min Estimated GFR (MDRD) 27 L (>60) BUN/Creatinine Ratio 20.6 H (9-20) Glucose 137 H (80-116) mg/dL Lactic Acid (0.4-2.0) mmol/L Calcium 8.5 L (8.6-10.2) mg/dL Total Bilirubin 0.4 (0.1-1.3) mg/dL AST 29 H (5-25) IU/L ALT 23 (12-36) U/L Alkaline Phosphatase 100 (56-112) IU/L Troponin I (4.0-60.3) pg/mL NT-Pro-B Natriuret Pep (<=450) pg/mL Total Protein 6.6 (6.0-8.0) g/dL Albumin 3.1 L (3.2-4.6) g/dL Globulin 3.5 g/dL Albumin/Globulin Ratio 0.9 Urine Color (YELLOW) Urine Appearance (CLEAR) Urine pH (5.0-6.5) Ur Specific [place] (1.010-1.025) Urine Protein (NEGATIVE) mg/dL Urine Glucose (UA) (NORMAL) mg/dL Urine Ketones (NEGATIVE) mg/dL Urine Occult Blood (NEGATIVE) Urine Nitrite (NEGATIVE) Urine Bilirubin (NEGATIVE) Urine Urobilinogen (NEGATIVE) mg/dL Ur Leukocyte Esterase (NEGATIVE) Urine RBC (0-5) Urine WBC (0-5) Ur Squamous Epith Cells (NS,R,O) Urine Bacteria (NS) 08/14/20 08/14/20 08/14/20 Range/Units 09:25 10:55 11:12 WBC (3.0-10.3) x10-3/uL RBC (3.60-5.20) x10(6)uL Hgb (11.4-15.5) g/dL Hct (34.2-48.2) % MCV (76.7-100.5) fL MCH (23.9-33.9) pg MCHC (31.9-34.8) g/dL RDW (12.3-16.5) % Plt Count (151-488) x10(3)uL MPV (7.1-12.4) fL Neut % (Auto) (30.8-76.2) % Lymph % (Auto) (18.4-52.1) % [place] % (Auto) (4.4-15.7) % Eos % (Auto) (0.6-8.1) % Baso % (Auto) (0.2-1.5) % Neut # (Auto) (1.5-6.3) x10-3/uL Lymph # (Auto) (1.0-4.4) x10-3/uL [place] # (Auto) (0.3-1.0) x10-3/uL Eos # (Auto) (0.0-0.8) x10-3/uL Baso # (Auto) (0.0-0.1) x10-3/uL PT (9.0-11.1) sec INR (1.00-1.24) Sodium (135-145) mmol/L Potassium (3.5-5.3) mmol/L Chloride (100-110) mmol/L Carbon Dioxide (21-32) mmol/L BUN (7-18) mg/dL Creatinine (0.55-1.02) mg/dL Est Cr Clr Drug Dosing mL/min Estimated GFR (MDRD) (>60) BUN/Creatinine Ratio (9-20) Glucose (80-116) mg/dL Lactic Acid 0.4 (0.4-2.0) mmol/L Calcium (8.6-10.2) mg/dL Total Bilirubin (0.1-1.3) mg/dL AST (5-25) IU/L ALT (12-36) U/L Alkaline Phosphatase (56-112) IU/L Troponin I 12.7 (4.0-60.3) pg/mL NT-Pro-B Natriuret Pep 4321 H* (<=450) pg/mL Total Protein (6.0-8.0) g/dL Albumin (3.2-4.6) g/dL Globulin g/dL Albumin/Globulin Ratio Urine Color Yellow (YELLOW) Urine Appearance Clear (CLEAR) Urine pH 7.0 H (5.0-6.5) Ur Specific [place] 1.010 (1.010-1.025) Urine Protein 500 H (NEGATIVE) mg/dL Urine Glucose (UA) 50 H (NORMAL) mg/dL Urine Ketones Negative (NEGATIVE) mg/dL Urine Occult Blood Moderate H (NEGATIVE) Urine Nitrite Negative (NEGATIVE) Urine Bilirubin Negative (NEGATIVE) Urine Urobilinogen Normal (NEGATIVE) mg/dL Ur Leukocyte Esterase Negative (NEGATIVE) Urine RBC 0-5 (0-5) Urine WBC 0-5 (0-5) Ur Squamous Epith Cells Few H (NS,R,O) Urine Bacteria Few H (NS) 08/15/20 08/15/20 08/15/20 Range/Units 06:10 06:10 06:10 WBC 8.2 (3.0-10.3) x10-3/uL RBC 3.55 L (3.60-5.20) x10(6)uL Hgb 11.3 L (11.4-15.5) g/dL Hct 33.9 L (34.2-48.2) % MCV 95.5 (76.7-100.5) fL MCH 31.7 (23.9-33.9) pg MCHC 33.2 (31.9-34.8) g/dL RDW 13.1 (12.3-16.5) % Plt Count 238 (151-488) x10(3)uL MPV 7.8 (7.1-12.4) fL Neut % (Auto) 84.8 H (30.8-76.2) % Lymph % (Auto) 7.3 L (18.4-52.1) % [place] % (Auto) 6.4 (4.4-15.7) % Eos % (Auto) 0.8 (0.6-8.1) % Baso % (Auto) 0.7 (0.2-1.5) % Neut # (Auto) 7.0 H (1.5-6.3) x10-3/uL Lymph # (Auto) 0.6 L (1.0-4.4) x10-3/uL [place] # (Auto) 0.5 (0.3-1.0) x10-3/uL Eos # (Auto) 0.1 (0.0-0.8) x10-3/uL Baso # (Auto) 0.1 (0.0-0.1) x10-3/uL PT 18.8 H (9.0-11.1) sec INR 1.81 H (1.00-1.24) Sodium 137 (135-145) mmol/L Potassium 3.7 (3.5-5.3) mmol/L Chloride 100 (100-110) mmol/L Carbon Dioxide 27 (21-32) mmol/L BUN 36 H (7-18) mg/dL Creatinine 2.0 H* (0.55-1.02) mg/dL Est Cr Clr Drug Dosing 13.08 mL/min Estimated GFR (MDRD) 24 L (>60) BUN/Creatinine Ratio 18.0 (9-20) Glucose 143 H (80-116) mg/dL Lactic Acid (0.4-2.0) mmol/L Calcium 8.2 L (8.6-10.2) mg/dL Total Bilirubin (0.1-1.3) mg/dL AST (5-25) IU/L ALT (12-36) U/L Alkaline Phosphatase (56-112) IU/L Troponin I (4.0-60.3) pg/mL NT-Pro-B Natriuret Pep (<=450) pg/mL Total Protein (6.0-8.0) g/dL Albumin (3.2-4.6) g/dL Globulin g/dL Albumin/Globulin Ratio Urine Color (YELLOW) Urine Appearance (CLEAR) Urine pH (5.0-6.5) Ur Specific [place] (1.010-1.025) Urine Protein (NEGATIVE) mg/dL Urine Glucose (UA) (NORMAL) mg/dL Urine Ketones (NEGATIVE) mg/dL Urine Occult Blood (NEGATIVE) Urine Nitrite (NEGATIVE) Urine Bilirubin (NEGATIVE) Urine Urobilinogen (NEGATIVE) mg/dL Ur Leukocyte Esterase (NEGATIVE) Urine RBC (0-5) Urine WBC (0-5) Ur Squamous Epith Cells (NS,R,O) Urine Bacteria (NS) Result Diagrams: 08/15/20 06:10 08/15/20 06:10 Harvey Results Last 24 hrs: Microbiology 08/14/20 10:55 Anaerobic Blood Culture - Final Blood - Venous Sepsis Event Note - Evaluation Sepsis Screening Result: No Definite Risk - Focused Exam Vital Signs: Vital Signs Temp Pulse Pulse Resp BP BP Pulse Ox 08/15/20 08:00 63 179/57 H 08/15/20 07:51 37.0 C 62 15 179/57 H 93 L 08/15/20 07:24 67 16 183/53 H 94 L 08/15/20 07:03 67 16 174/54 H 94 L 08/15/20 06:44 76 16 184/54 H 94 L 08/15/20 06:23 36.2 C 67 16 177/52 H 92 L 08/15/20 00:47 160/70 H 08/15/20 00:00 37.4 C 70 16 151/59 H 93 L 08/14/20 20:34 72 167/50 H - Problem List & Annotations (1) Hypertensive emergency SNOMED Code(s): 993474572776137 Code(s): I16.1 - HYPERTENSIVE EMERGENCY Status: Acute Current Visit: Yes (2) KAYDEN (acute kidney injury) SNOMED Code(s): 40491340, 27544889 Code(s): N17.9 - ACUTE KIDNEY FAILURE, UNSPECIFIED Status: Acute Current Visit: Yes (3) CHF (congestive heart failure) SNOMED Code(s): 41402936 Code(s): I50.9 - HEART FAILURE, UNSPECIFIED Status: Chronic Current Visit: Yes (4) Dehydration SNOMED Code(s): 55934026 Code(s): E86.0 - DEHYDRATION Status: Acute Current Visit: Yes (5) Pneumonia SNOMED Code(s): 292264785 Code(s): J18.9 - PNEUMONIA, UNSPECIFIED ORGANISM Status: Acute Current Visit: Yes (6) Weakness SNOMED Code(s): 44189070 Code(s): R53.1 - WEAKNESS Status: Acute Current Visit: Yes (7) CAD (coronary artery disease) SNOMED Code(s): 29796412 Code(s): I25.10 - ATHSCL HEART DISEASE OF [place] CORONARY ARTERY W/O ANG PCTRS Status: Chronic Current Visit: Yes Qualifiers: Coronary Disease-Associated Artery/Lesion type: bypass graft (8) CKD (chronic kidney disease) SNOMED Code(s): 331997344 Code(s): N18.9 - CHRONIC KIDNEY DISEASE, UNSPECIFIED Status: Chronic Current Visit: Yes Qualifiers: Chronic kidney disease stage: stage 3 (moderate) (9) HTN (hypertension) SNOMED Code(s): 73559174 Code(s): I10 - ESSENTIAL (PRIMARY) HYPERTENSION Status: Chronic Current Visit: Yes Qualifiers: Hypertension type: essential hypertension Qualified Code(s): I10 - Essential (primary) hypertension (10) Afib SNOMED Code(s): 59713382 Code(s): I48.91 - UNSPECIFIED ATRIAL FIBRILLATION Status: Chronic Current Visit: No Qualifiers: Atrial fibrillation type: permanent (11) Hyperlipemia, mixed SNOMED Code(s): 342097245 Code(s): E78.2 - MIXED HYPERLIPIDEMIA Status: Chronic Current Visit: No (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 SNOMED Code(s): 096246883 Code(s): Z79.01 - [facility] (CURRENT) USE OF ANTICOAGULANTS Status: Chronic Current Visit: No (13) Unsteady gait SNOMED Code(s): 14865360 Code(s): R26.81 - UNSTEADINESS ON FEET Status: Acute Current Visit: No (14) Palliative care encounter SNOMED Code(s): 136124367, 481604860 Code(s): Z51.5 - ENCOUNTER FOR PALLIATIVE CARE Status: Acute Current Visit: Yes - Problem List Review Problem List Initiated/Reviewed/Updated: Yes - My Orders Last 24 Hours: My Active Orders 08/14/20 12:43 Patient Status [ADT] Routine Pulse Oximetry [RC] .PRN Up With Assistance [RC] ASDIRECTED Up to Chair [RC] ASDIRECTED Vital Signs [RC] 08,16,00 DVT/VTE Prophylaxis Reflex [OM.PC] Per Unit Routine Resuscitation Status Routine 08/14/20 12:46 VTE/DVT Education [RC] Click to Edit 08/14/20 12:57 Nitroglycerin [Nitrostat] 0.4 mg SL ASDIRECTED PRN hydrALAZINE [Apresoline] 10 mg IVPUSH Q2H PRN 08/14/20 13:00 carvediloL [Coreg] 25 mg PO BID hydrALAZINE [Apresoline] 25 mg PO Q12H 08/14/20 13:02 Ondansetron [Zofran] 4 mg IVPUSH Q4H PRN 08/14/20 13:06 Dietary Supplements [RC] 08,12,18 08/14/20 14:00 Isosorbide Mononitrate [Isosorbide Mononitrate ER] 120 mg PO DAILY Polyvinyl Alcohol [LiquiTears 1.4% Ophth Soln] 0 ml EYEBOTH QID PRN 08/14/20 16:00 Warfarin [Coumadin] 1.25 mg PO MoWeFr@1600 Convert IV to Saline Lock [OM.PC] Stat 08/14/20 Dinner Cardiac Diet [Heart Healthy Diet] [DIET] 08/14/20 18:22 Telemetry Monitoring [Cardiac Monitoring] [RC] 08,16,00 08/14/20 21:00 atorvaSTATin [Lipitor] 40 mg PO BEDTIME 08/15/20 08:30 Albuterol/Ipratropium [DuoNeb 3.0-0.5 MG/3 ML] 3 ml NEB Q2H PRN 08/15/20 08:31 RT Aerosol Therapy [RC] ASDIRECTED 08/15/20 09:00 Aspirin [Halfprin] 81 mg PO DAILY hydroCHLOROthiazide 25 mg PO DAILY 08/15/20 11:30 Warfarin Sliding Scale [Coumadin Sliding Scale] 1 each PO ASDIRECTED 08/15/20 14:00 amLODIPine [Norvasc] 10 mg PO DAILY 08/15/20 16:00 Warfarin [Coumadin] 2.5 mg PO SuTuThSa@1600 08/16/20 07:00 INR,PT,PROTHROMBIN TIME [COAG] DAILY 08/17/20 07:00 INR,PT,PROTHROMBIN TIME [COAG] DAILY - Plan Plan:: 1. Patient admitted to observation status. It is likely that patient has some sort of viral illness causing her to have nausea and vomiting and that she was unable to take her medications as directed and suffered dehydration and hypertensive emergency secondary to fluid loss and inability to take her medications 2. Continue home medical treatment as above for chronic conditions 3. Ceftriaxone for community-acquired pneumonia 4. DVT prophylaxis: Continue home Coumadin 5. GI prophylaxis: Protonix, heart healthy diet 6. Disposition: Patient was able to ate a few bites of food today but continues to have decreased appetite. She will be given gentle hydration today with 250 mL of normal saline. Continue to trend CBC and BMP. If patient renal function improves she will likely be discharged tomorrow with oral antibiotics
[2020-08-15] MEDS ORDERED: Sodium Chloride 0.9% 250 ML IV SCH (08:45)
[2020-08-15] MEDS ORDERED: Warfarin Sliding Scale PO SCH (11:30)
[2020-08-15] MEDS: cefTRIAXone 1 GM Vial IVPUSH SCH (11:43)
[2020-08-15] MEDS: amLODIPine 10 MG Tab PO SCH (13:05)
[2020-08-15] MEDS: Warfarin 2.5 MG Tab PO SCH (16:01)
[2020-08-15] MEDS: atorvaSTATin 40 MG Tab PO SCH (20:00)
[2020-08-16] MEDS: hydrALAZINE 25 MG Tab PO SCH ×2 (01:08→12:04)
[2020-08-16] MEDS: Acetaminophen 325 MG Tab PO PRN (05:23)
[2020-08-16] MEDS: Albuterol/Ipratropium 3.0-0.5 MG/3 ML Neb Soln NEB PRN ×3 (07:28→18:47)
[2020-08-16] MEDS: Sodium Chloride 0.9% 10 ML Syringe FLUSH PRN ×3 (07:39→23:10)
[2020-08-16] MEDS: Carvedilol 25 MG Tab PO SCH ×2 (08:28→21:13)
[2020-08-16] MEDS: amLODIPine 10 MG Tab PO SCH (08:28)
[2020-08-16] MEDS: Hydrochlorothiazide 25 MG Tab PO SCH (08:28)
[2020-08-16] MEDS: ISOSORBIDE MONONITRATE 120 MG PO SCH (08:28)
[2020-08-16] MEDS: Aspirin 81 MG Tab.EC PO SCH (08:28)
[2020-08-16] MEDS ORDERED: Prochlorperazine 10 MG/2 ML SDV IVPUSH ONE (08:50)
[2020-08-16] MEDS ORDERED: Furosemide 20 MG/2 ML VIAL IVPUSH ONE (09:32)
[2020-08-16] MEDS ORDERED: Prochlorperazine 10 MG/2 ML SDV IM PRN (09:51)
[2020-08-16] MEDS ORDERED: Prochlorperazine 10 MG/2 ML SDV IV PRN (09:54)
--- NOTE | 2020-08-16 10:12 | PCM.PN ---
- General Info Date of Service: 08/16/20 Admission Dx/Problem (Free Text): Admission Diagnosis/Problem Admission Diagnosis/Problem Dehydration Subjective Update: Patient states that she feels a little worse this morning and is continuing to have difficulty breathing. She continues to try to eat but has very reduced appetite and difficulties with intermittent nausea Functional Status: Reports: Pain Controlled, Ambulating, Urinating. Denies: Tolerating Diet - Review of Systems General: Reports: Weakness, Fatigue, Malaise HEENT: Reports: No Symptoms Pulmonary: Reports: Shortness of Breath, Pleuritic Chest Pain, Cough Cardiovascular: Reports: No Symptoms Gastrointestinal: Reports: Nausea Genitourinary: Reports: No Symptoms Musculoskeletal: Reports: No Symptoms Skin: Reports: No Symptoms Neurological: Reports: Weakness Psychiatric: Reports: No Symptoms - Patient Data Vitals - Most Recent: Last Vital Signs Temp 37.2 C 08/16/20 09:52 Pulse 66 08/16/20 09:52 Resp 16 08/16/20 09:52 BP 163/50 H 08/16/20 09:52 Pulse Ox 91 L 08/16/20 09:52 Weight - Most Recent: 38.192 kg I&O - Last 24 Hours: Intake & Output 08/15/20 08/16/20 08/16/20 22:59 06:59 14:59 Intake Total 590 120 Balance 590 120 Lab Results Last 24 Hours: Laboratory Results - last 24 hr 08/16/20 08/16/20 08/16/20 Range/Units 06:15 06:15 06:15 WBC 8.8 (3.0-10.3) x10-3/uL RBC 3.29 L (3.60-5.20) x10(6)uL Hgb 10.5 L (11.4-15.5) g/dL Hct 31.5 L (34.2-48.2) % MCV 95.8 (76.7-100.5) fL MCH 32.1 (23.9-33.9) pg MCHC 33.5 (31.9-34.8) g/dL RDW 13.3 (12.3-16.5) % Plt Count 227 (151-488) x10(3)uL MPV 7.7 (7.1-12.4) fL Add Manual Diff Yes Neutrophils % (Manual) 92 H (46-82) % Lymphocytes % (Manual) 1 L (13-37) % Monocytes % (Manual) 7 (4-12) % PT 23.6 H (9.0-11.1) sec INR 2.31 H (1.00-1.24) Sodium 135 (135-145) mmol/L Potassium 3.7 (3.5-5.3) mmol/L Chloride 100 (100-110) mmol/L Carbon Dioxide 26 (21-32) mmol/L BUN 39 H (7-18) mg/dL Creatinine 2.1 H* (0.55-1.02) mg/dL Est Cr Clr Drug Dosing 12.45 mL/min Estimated GFR (MDRD) 23 L (>60) BUN/Creatinine Ratio 18.6 (9-20) Glucose 116 (80-116) mg/dL Calcium 8.1 L (8.6-10.2) mg/dL [facility] Results Last 24 Hours: Microbiology 08/14/20 10:55 Aerobic Blood Culture - Preliminary Blood - Venous NO GROWTH AFTER 1 DAY Anaerobic Blood Culture - Final 08/14/20 11:05 Aerobic Blood Culture - Preliminary Blood - Venous - Lab Draw NO GROWTH AFTER 1 DAY Anaerobic Blood Culture - Preliminary NO GROWTH AFTER 1 DAY Med Orders - Current: Current Medications Acetaminophen (Acetaminophen 325 Mg Tab) 650 mg PO Q4H PRN PRN Reason: Pain (mild 1-3) Last Admin: 08/16/20 05:23 Dose: 650 mg Documented by: Albuterol/Ipratropium (Albuterol/Ipratropium 3.0-0.5 Mg/3 Ml Neb Soln) 3 ml NEB Q2H PRN PRN Reason: Wheezing Last Admin: 08/16/20 07:28 Dose: 3 ml Documented by: Amlodipine Besylate (Amlodipine 10 Mg Tab *Ptom*) 10 mg PO DAILY [facility] Last Admin: 08/16/20 08:28 Dose: 10 mg Documented by: Artificial Tears (Polyvinyl Alcohol 1.4% Ophth Soln 15 Ml Bottle) 0 ml EYEBOTH QID PRN PRN Reason: DRY EYES Aspirin (Aspirin 81 Mg Tab.Ec *Ptom*) 81 mg PO DAILY [facility] Last Admin: 08/16/20 08:28 Dose: 81 mg Documented by: Atorvastatin Calcium (Atorvastatin 40 Mg Tab *Ptom*) 40 mg PO BEDTIME [facility] Last Admin: 08/15/20 20:00 Dose: 40 mg Documented by: Carvedilol (Carvedilol 25 Mg Tab *Ptom*) 25 mg PO BID [facility] Last Admin: 08/16/20 08:28 Dose: 25 mg Documented by: Ceftriaxone Sodium (Ceftriaxone 1 Gm Vial) 1 gm IVPUSH Q24H [facility] Last Admin: 08/15/20 11:43 Dose: 1 gm Documented by: Furosemide (Furosemide 20 Mg/2 Ml Vial) 20 mg IVPUSH BID [facility] Hydralazine HCl (Hydralazine 25 Mg Tab *Ptom*) 25 mg PO Q12H [facility] Last Admin: 08/16/20 01:08 Dose: 25 mg Documented by: Hydralazine HCl (Hydralazine 20 Mg/Ml Sdv) 10 mg IVPUSH Q2H PRN PRN Reason: Hypertension Last Admin: 08/15/20 06:18 Dose: 10 mg Documented by: Hydrochlorothiazide (Hydrochlorothiazide 25 Mg Tab *Ptom*) 25 mg PO DAILY [facility] Last Admin: 08/16/20 08:28 Dose: 25 mg Documented by: Sodium Chloride (Normal Saline) 250 mls @ 50 mls/hr IV ASDIRECTED [facility] Last Admin: 08/15/20 09:06 Dose: 50 mls/hr Documented by: Doxycycline Hyclate 100 mg/ (Sodium Chloride) 100 mls @ 100 mls/hr IV Q12HR [facility] Nitroglycerin (Nitroglycerin 0.4 Mg Tab.Sl) 0.4 mg SL ASDIRECTED PRN PRN Reason: Chest Pain Isosorbide Mononitrate Er 120 Mg *Ptom* 120 mg PO DAILY [facility] Last Admin: 08/16/20 08:28 Dose: 120 mg Documented by: Prochlorperazine Edisylate (Prochlorperazine 10 Mg/2 Ml Sdv) 2.5 mg IV Q6H PRN PRN Reason: Nausea/Vomiting Sodium Chloride (Sodium Chloride 0.9% 10 Ml Syringe) 10 ml FLUSH ASDIRECTED PRN PRN Reason: Keep Vein Open Last Admin: 08/16/20 07:39 Dose: 10 ml Documented by: Warfarin Sodium (Warfarin Sliding Scale) 1 each PO ASDIRECTED [facility] Warfarin Sodium (Warfarin 2.5 Mg Tab *Ptom) 2.5 mg PO SuTuThSa@1600 [facility] Last Admin: 08/15/20 16:01 Dose: 2.5 mg Documented by: Warfarin Sodium (Warfarin 2.5 Mg Tab *Ptom) 1.25 mg PO MoWeFr@1600 [facility] Last Admin: 08/14/20 16:42 Dose: 1.25 mg Documented by: Discontinued Medications Furosemide (Furosemide 20 Mg/2 Ml Vial) 20 mg IVPUSH NOW ONE Stop: 08/16/20 09:33 Last Admin: 08/16/20 09:47 Dose: 20 mg Documented by: Hydralazine HCl (Hydralazine 20 Mg/Ml Sdv) 20 mg IVPUSH NOW STA Stop: 08/14/20 09:03 Last Admin: 08/14/20 09:11 Dose: 20 mg Documented by: Hydralazine HCl (Hydralazine 20 Mg/Ml Sdv) 20 mg IVPUSH NOW STA Stop: 08/14/20 11:56 Last Admin: 08/14/20 12:02 Dose: 20 mg Documented by: Sodium Chloride (Normal Saline) 1,000 mls @ 500 mls/hr IV ASDIRECTED [facility] Last Admin: 08/14/20 15:32 Dose: 125 mls/hr Documented by: Prochlorperazine Edisylate 5 (mg/ Sodium Chloride) 51 mls @ 150 mls/hr IV NOW STA Stop: 08/14/20 10:24 Last Admin: 08/14/20 10:26 Dose: 150 mls/hr Documented by: Azithromycin 500 mg/ Sodium (Chloride) 250 mls @ 250 mls/hr IV Q24H [facility] Stop: 08/16/20 23:55 Labetalol HCl (Labetalol 20 Mg/4 Ml Syringe) 20 mg IVPUSH NOW STA; Protocol Stop: 08/14/20 10:40 Last Admin: 08/14/20 10:57 Dose: 20 mg Documented by: Labetalol HCl (Labetalol 20 Mg/4 Ml Syringe) 20 mg IVPUSH NOW STA; Protocol Stop: 08/14/20 12:03 Last Admin: 08/14/20 12:06 Dose: 20 mg Documented by: Ondansetron HCl (Ondansetron 4 Mg/2 Ml Sdv) 4 mg IVPUSH NOW STA Stop: 08/14/20 09:03 Last Admin: 08/14/20 09:11 Dose: 4 mg Documented by: Ondansetron HCl (Ondansetron 4 Mg/2 Ml Sdv) 4 mg IVPUSH Q4H PRN PRN Reason: Nausea/Vomiting Last Admin: 08/15/20 16:03 Dose: 4 mg Documented by: Prochlorperazine Edisylate (Prochlorperazine 10 Mg/2 Ml Sdv) 5 mg IVPUSH ONETIME ONE Stop: 08/14/20 10:06 Last Admin: 08/14/20 10:23 Dose: 5 mg Documented by: Prochlorperazine Edisylate (Prochlorperazine 10 Mg/2 Ml Sdv) 10 mg IVPUSH ONETIME ONE Stop: 08/16/20 08:51 Last Admin: 08/16/20 08:59 Dose: 10 mg Documented by: Prochlorperazine Edisylate (Prochlorperazine 10 Mg/2 Ml Sdv) 2.5 mg IM Q6H PRN PRN Reason: Nausea/Vomiting Comments:: Patient lying in bed supine with breakfast, she has only eaten a very small am ount, she appears very fatigued - Exam Quality Assessment: Supplemental Oxygen, DVT Prophylaxis General: Alert, Oriented, Cooperative, Mild Distress HEENT: EOMI Lungs: Decreased Breath Sounds, Crackles, Rales Cardiovascular: Regular Rate, Regular Rhythm, Murmurs GI/Abdominal Exam: Normal Bowel Sounds, Non-Tender Extremities: Normal Inspection Peripheral Pulses: 1+: Dorsalis Pedis (L), Dorsalis Pedis (R), 2+: Radial (L), Radial (R) Skin: Warm, Dry, Intact Neurological: No New Focal Deficit Psy/Mental Status: Alert, Normal Affect, Normal Mood - Patient Data Lab Results Last 24 hrs: Laboratory Results - last 24 hr 08/16/20 08/16/20 08/16/20 Range/Units 06:15 06:15 06:15 WBC 8.8 (3.0-10.3) x10-3/uL RBC 3.29 L (3.60-5.20) x10(6)uL Hgb 10.5 L (11.4-15.5) g/dL Hct 31.5 L (34.2-48.2) % MCV 95.8 (76.7-100.5) fL MCH 32.1 (23.9-33.9) pg MCHC 33.5 (31.9-34.8) g/dL RDW 13.3 (12.3-16.5) % Plt Count 227 (151-488) x10(3)uL MPV 7.7 (7.1-12.4) fL Add Manual Diff Yes Neutrophils % (Manual) 92 H (46-82) % Lymphocytes % (Manual) 1 L (13-37) % Monocytes % (Manual) 7 (4-12) % PT 23.6 H (9.0-11.1) sec INR 2.31 H (1.00-1.24) Sodium 135 (135-145) mmol/L Potassium 3.7 (3.5-5.3) mmol/L Chloride 100 (100-110) mmol/L Carbon Dioxide 26 (21-32) mmol/L BUN 39 H (7-18) mg/dL Creatinine 2.1 H* (0.55-1.02) mg/dL Est Cr Clr Drug Dosing 12.45 mL/min Estimated GFR (MDRD) 23 L (>60) BUN/Creatinine Ratio 18.6 (9-20) Glucose 116 (80-116) mg/dL Calcium 8.1 L (8.6-10.2) mg/dL Result Diagrams: 08/16/20 06:15 08/16/20 06:15 [facility] Results Last 24 hrs: Microbiology 08/14/20 10:55 Aerobic Blood Culture - Preliminary Blood - Venous NO GROWTH AFTER 1 DAY Anaerobic Blood Culture - Final 08/14/20 11:05 Aerobic Blood Culture - Preliminary Blood - Venous - Lab Draw NO GROWTH AFTER 1 DAY Anaerobic Blood Culture - Preliminary NO GROWTH AFTER 1 DAY Sepsis Event Note - Evaluation Sepsis Screening Result: No Definite Risk - Focused Exam Vital Signs: Vital Signs Temp Pulse Pulse Resp BP BP Pulse Ox 08/16/20 09:52 37.2 C 66 16 163/50 H 91 L 08/16/20 08:28 71 174/40 H 08/16/20 07:30 71 08/16/20 07:25 37.2 C 71 14 176/40 H 92 L 08/16/20 01:08 156/58 H 08/16/20 00:00 36.6 C 67 16 156/58 H 93 L - Problem List & Annotations (1) Hypertensive emergency SNOMED Code(s): 570431897728547 Code(s): I16.1 - HYPERTENSIVE EMERGENCY Status: Acute Current Visit: Yes (2) KAYDEN (acute kidney injury) SNOMED Code(s): 24073110, 26698875 Code(s): N17.9 - ACUTE KIDNEY FAILURE, UNSPECIFIED Status: Acute Current Visit: Yes (3) CHF (congestive heart failure) SNOMED Code(s): 85520456 Code(s): I50.9 - HEART FAILURE, UNSPECIFIED Status: Chronic Current Visit: Yes (4) Dehydration SNOMED Code(s): 95083502 Code(s): E86.0 - DEHYDRATION Status: Acute Current Visit: Yes (5) Pneumonia SNOMED Code(s): 040471281 Code(s): J18.9 - PNEUMONIA, UNSPECIFIED ORGANISM Status: Acute Current Visit: Yes (6) Weakness SNOMED Code(s): 10758091 Code(s): R53.1 - WEAKNESS Status: Acute Current Visit: Yes (7) CAD (coronary artery disease) SNOMED Code(s): 15490442 Code(s): I25.10 - ATHSCL HEART DISEASE OF [place] CORONARY ARTERY W/O ANG PCTRS Status: Chronic Current Visit: Yes Qualifiers: Coronary Disease-Associated Artery/Lesion type: bypass graft (8) CKD (chronic kidney disease) SNOMED Code(s): 163732516 Code(s): N18.9 - CHRONIC KIDNEY DISEASE, UNSPECIFIED Status: Chronic Current Visit: Yes Qualifiers: Chronic kidney disease stage: stage 3 (moderate) (9) HTN (hypertension) SNOMED Code(s): 66150718 Code(s): I10 - ESSENTIAL (PRIMARY) HYPERTENSION Status: Chronic Current Visit: Yes Qualifiers: Hypertension type: essential hypertension Qualified Code(s): I10 - Essential (primary) hypertension (10) Afib SNOMED Code(s): 15393056 Code(s): I48.91 - UNSPECIFIED ATRIAL FIBRILLATION Status: Chronic Current Visit: No Qualifiers: Atrial fibrillation type: permanent (11) Hyperlipemia, mixed SNOMED Code(s): 302577201 Code(s): E78.2 - MIXED HYPERLIPIDEMIA Status: Chronic Current Visit: No (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 SNOMED Code(s): 035471005 Code(s): Z79.01 - [facility] (CURRENT) USE OF ANTICOAGULANTS Status: Chronic Current Visit: No (13) Unsteady gait SNOMED Code(s): 57820256 Code(s): R26.81 - UNSTEADINESS ON FEET Status: Acute Current Visit: No (14) Palliative care encounter SNOMED Code(s): 297804504, 452854972 Code(s): Z51.5 - ENCOUNTER FOR PALLIATIVE CARE Status: Acute Current Visit: Yes (15) Pleural effusion, right SNOMED Code(s): 08926323 Code(s): J90 - PLEURAL EFFUSION, NOT ELSEWHERE CLASSIFIED Status: Acute Current Visit: Yes (16) Nausea SNOMED Code(s): 007953947 Code(s): R11.0 - NAUSEA Status: Acute Current Visit: Yes - Problem List Review Problem List Initiated/Reviewed/Updated: Yes - My Orders Last 24 Hours: My Active Orders 08/15/20 11:30 Warfarin Sliding Scale [Coumadin Sliding Scale] 1 each PO ASDIRECTED 08/15/20 14:00 amLODIPine [Norvasc] 10 mg PO DAILY 08/15/20 16:00 Warfarin [Coumadin] 2.5 mg PO SuTuThSa@1600 08/16/20 05:12 Acetaminophen [TylenoL] 650 mg PO Q4H PRN 08/16/20 08:00 Chest 2V [CR] Stat 08/16/20 09:54 Prochlorperazine [Compazine] 2.5 mg IV Q6H PRN 08/16/20 10:00 Doxycycline [Vibramycin] 100 mg Sodium Chloride 0.9% [Normal Saline] 100 ml IV Q12HR Resuscitation Status Routine 08/16/20 10:01 Patient Status [ADT] Routine Pulse Oximetry [RC] PRN Vital Signs [RC] Q4H DVT/VTE Prophylaxis Reflex [OM.PC] Per Unit Routine 08/16/20 10:03 Antiembolic Devices [RC] .Routine VTE/DVT Education [RC] Click to Edit 08/16/20 15:00 Furosemide [Lasix] 20 mg IVPUSH BID 08/17/20 CXR [Chest 2V] [CR] Routine BASIC METABOLIC PANEL,BMP [CHEM] Routine CBC WITH AUTO DIFF [HEME] Routine PRO B-TYPE NATRIUR PEPT,BNPPRO [CHEM] Routine 08/17/20 07:00 INR,PT,PROTHROMBIN TIME [COAG] DAILY - Plan Plan:: 1. Patient placed on inpatient status. She required 2 L supplemental oxygen overnight due to O2 sat of 86%. However, patient was resting comfortably on room air at 92% at the time of a.m. exam. 2. Patient is continuing to experience nausea which is interfering with her oral intake. Stop Zofran and start prochlorperazine. 3. Continue home medical treatment as above for chronic conditions. Lasix was held due to initial presentation with dehydration but we will now start IV Lasix 20 mg twice daily 4. Ceftriaxone, doxycycline for community-acquired pneumonia 5. DVT prophylaxis: Continue home Coumadin 6. GI prophylaxis: Protonix, heart healthy diet 7. Disposition: Patient changed to inpatient status today. Chest x-ray ordered due to increased need for supplemental oxygen showed right pleural effusion, likely loculated. IV Lasix as above. Recheck labs and chest x-ray in the [facility]. Recheck BNP in the a.m. Consider transfer to [place] if patient's condition does not improve with the above treatment.
[2020-08-16] MEDS: Doxycycline 100 MG in Sodium Chloride 0.9% 100 ML IV SCH ×2 (10:32→21:50)
[2020-08-16] MEDS: cefTRIAXone 1 GM Vial IVPUSH SCH (12:04)
[2020-08-16] MEDS ORDERED: Furosemide 20 MG/2 ML VIAL IVPUSH SCH (14:00)
[2020-08-16] MEDS: Warfarin 2.5 MG Tab PO SCH (15:00)
[2020-08-16] MEDS: atorvaSTATin 40 MG Tab PO SCH (21:13)
[2020-08-17] MEDS: hydrALAZINE 25 MG Tab PO SCH ×2 (01:14→14:41)
[2020-08-17] MEDS: Albuterol/Ipratropium 3.0-0.5 MG/3 ML Neb Soln NEB PRN ×2 (02:34→21:28)
[2020-08-17] MEDS: Acetaminophen 325 MG Tab PO PRN ×2 (02:43→21:28)
--- NOTE | 2020-08-17 07:16 | PCM.PN ---
- General Info Date of Service: 08/17/20 Admission Dx/Problem (Free Text): Admission Diagnosis/Problem Admission Diagnosis/Problem Dehydration Subjective Update: Patient complains of increasing shortness of breath and decreased functional capacity such as shortness of breath with walking to the bathroom but she denies chest pain Functional Status: Reports: Pain Controlled, Tolerating Diet, Ambulating, Urinating - Review of Systems General: Reports: Weakness, Fatigue, Malaise HEENT: Reports: No Symptoms Pulmonary: Reports: Shortness of Breath Cardiovascular: Reports: No Symptoms Gastrointestinal: Reports: No Symptoms Genitourinary: Reports: No Symptoms Musculoskeletal: Reports: No Symptoms Skin: Reports: No Symptoms Neurological: Reports: No Symptoms Psychiatric: Reports: Depression - Patient Data Vitals - Most Recent: Last Vital Signs Temp 36.6 C 08/17/20 06:00 Pulse 76 08/17/20 06:00 Resp 20 08/17/20 06:00 BP 170/52 H 08/17/20 06:00 Pulse Ox 95 08/17/20 06:00 Weight - Most Recent: 38.192 kg I&O - Last 24 Hours: Intake & Output 08/16/20 08/17/20 08/17/20 22:59 06:59 14:59 Intake Total 540 100 Output Total 300 100 Balance 240 0 Lab Results Last 24 Hours: Laboratory Results - last 24 hr 08/17/20 08/17/20 08/17/20 Range/Units 06:24 06:24 06:24 WBC 11.0 H (3.0-10.3) x10-3/uL RBC 3.22 L (3.60-5.20) x10(6)uL Hgb 10.1 L (11.4-15.5) g/dL Hct 30.5 L (34.2-48.2) % MCV 94.7 (76.7-100.5) fL MCH 31.4 (23.9-33.9) pg MCHC 33.1 (31.9-34.8) g/dL RDW 13.1 (12.3-16.5) % Plt Count 201 (151-488) x10(3)uL MPV 7.9 (7.1-12.4) fL Add Manual Diff Yes PT 34.7 H (9.0-11.1) sec INR 3.48 H (1.00-1.24) Sodium 129 L (135-145) mmol/L Potassium 3.3 L (3.5-5.3) mmol/L Chloride 96 L (100-110) mmol/L Carbon Dioxide 25 (21-32) mmol/L BUN 44 H (7-18) mg/dL Creatinine 2.2 H* (0.55-1.02) mg/dL Est Cr Clr Drug Dosing 11.89 mL/min Estimated GFR (MDRD) 21 L (>60) BUN/Creatinine Ratio 20.0 (9-20) Glucose 120 H (80-116) mg/dL Calcium 8.3 L (8.6-10.2) mg/dL Harvey Results Last 24 Hours: Microbiology 08/14/20 10:55 Aerobic Blood Culture - Preliminary Blood - Venous NO GROWTH AFTER 2 DAYS Anaerobic Blood Culture - Final 08/14/20 11:05 Aerobic Blood Culture - Preliminary Blood - Venous - Lab Draw NO GROWTH AFTER 2 DAYS Anaerobic Blood Culture - Preliminary NO GROWTH AFTER 2 DAYS Med Orders - Current: Current Medications Acetaminophen (Acetaminophen 325 Mg Tab) 650 mg PO Q4H PRN PRN Reason: Pain (mild 1-3) Last Admin: 08/17/20 02:43 Dose: 650 mg Documented by: Albuterol/Ipratropium (Albuterol/Ipratropium 3.0-0.5 Mg/3 Ml Neb Soln) 3 ml NEB Q2H PRN PRN Reason: Wheezing Last Admin: 08/17/20 02:34 Dose: 3 ml Documented by: Amlodipine Besylate (Amlodipine 10 Mg Tab *Ptom*) 10 mg PO DAILY [facility] Last Admin: 08/16/20 08:28 Dose: 10 mg Documented by: Artificial Tears (Polyvinyl Alcohol 1.4% Ophth Soln 15 Ml Bottle) 0 ml EYEBOTH QID PRN PRN Reason: DRY EYES Aspirin (Aspirin 81 Mg Tab.Ec *Ptom*) 81 mg PO DAILY [facility] Last Admin: 08/16/20 08:28 Dose: 81 mg Documented by: Atorvastatin Calcium (Atorvastatin 40 Mg Tab *Ptom*) 40 mg PO BEDTIME [facility] Last Admin: 08/16/20 21:13 Dose: 40 mg Documented by: Carvedilol (Carvedilol 25 Mg Tab *Ptom*) 25 mg PO BID [facility] Last Admin: 08/16/20 21:13 Dose: 25 mg Documented by: Ceftriaxone Sodium (Ceftriaxone 1 Gm Vial) 1 gm IVPUSH Q24H [facility] Last Admin: 08/16/20 12:04 Dose: 1 gm Documented by: Furosemide (Furosemide 20 Mg/2 Ml Vial) 20 mg IVPUSH BIDDIURETIC [facility] Last Admin: 08/16/20 14:57 Dose: 20 mg Documented by: Hydralazine HCl (Hydralazine 25 Mg Tab *Ptom*) 25 mg PO Q12H [facility] Last Admin: 08/17/20 01:14 Dose: 25 mg Documented by: Hydralazine HCl (Hydralazine 20 Mg/Ml Sdv) 10 mg IVPUSH Q2H PRN PRN Reason: Hypertension Last Admin: 08/15/20 06:18 Dose: 10 mg Documented by: Hydrochlorothiazide (Hydrochlorothiazide 25 Mg Tab *Ptom*) 25 mg PO DAILY [facility] Last Admin: 08/16/20 08:28 Dose: 25 mg Documented by: Sodium Chloride (Normal Saline) 250 mls @ 50 mls/hr IV ASDIRECTED [facility] Last Admin: 08/15/20 09:06 Dose: 50 mls/hr Documented by: Doxycycline Hyclate 100 mg/ (Sodium Chloride) 100 mls @ 100 mls/hr IV Q12H [facility] Last Admin: 08/16/20 21:50 Dose: 100 mls/hr Documented by: Nitroglycerin (Nitroglycerin 0.4 Mg Tab.Sl) 0.4 mg SL ASDIRECTED PRN PRN Reason: Chest Pain Isosorbide Mononitrate Er 120 Mg *Ptom* 120 mg PO DAILY [facility] Last Admin: 08/16/20 08:28 Dose: 120 mg Documented by: Prochlorperazine Edisylate (Prochlorperazine 10 Mg/2 Ml Sdv) 2.5 mg IV Q6H PRN PRN Reason: Nausea/Vomiting Sodium Chloride (Sodium Chloride 0.9% 10 Ml Syringe) 10 ml FLUSH ASDIRECTED PRN PRN Reason: Keep Vein Open Last Admin: 08/16/20 23:10 Dose: 10 ml Documented by: Warfarin Sodium (Warfarin Sliding Scale) 1 each PO ASDIRECTED [facility] Warfarin Sodium (Warfarin 2.5 Mg Tab *Ptom) 2.5 mg PO SuTuThSa@1600 [facility] Last Admin: 08/16/20 15:00 Dose: 2.5 mg Documented by: Warfarin Sodium (Warfarin 2.5 Mg Tab *Ptom) 1.25 mg PO MoWeFr@1600 [facility] Last Admin: 08/14/20 16:42 Dose: 1.25 mg Documented by: Discontinued Medications Furosemide (Furosemide 20 Mg/2 Ml Vial) 20 mg IVPUSH NOW ONE Stop: 08/16/20 09:33 Last Admin: 08/16/20 09:47 Dose: 20 mg Documented by: Hydralazine HCl (Hydralazine 20 Mg/Ml Sdv) 20 mg IVPUSH NOW STA Stop: 08/14/20 09:03 Last Admin: 08/14/20 09:11 Dose: 20 mg Documented by: Hydralazine HCl (Hydralazine 20 Mg/Ml Sdv) 20 mg IVPUSH NOW STA Stop: 08/14/20 11:56 Last Admin: 08/14/20 12:02 Dose: 20 mg Documented by: Sodium Chloride (Normal Saline) 1,000 mls @ 500 mls/hr IV ASDIRECTED [facility] Last Admin: 08/14/20 15:32 Dose: 125 mls/hr Documented by: Prochlorperazine Edisylate 5 (mg/ Sodium Chloride) 51 mls @ 150 mls/hr IV NOW STA Stop: 08/14/20 10:24 Last Admin: 08/14/20 10:26 Dose: 150 mls/hr Documented by: Azithromycin 500 mg/ Sodium (Chloride) 250 mls @ 250 mls/hr IV Q24H [facility] Stop: 08/16/20 23:55 Labetalol HCl (Labetalol 20 Mg/4 Ml Syringe) 20 mg IVPUSH NOW STA; Protocol Stop: 08/14/20 10:40 Last Admin: 08/14/20 10:57 Dose: 20 mg Documented by: Labetalol HCl (Labetalol 20 Mg/4 Ml Syringe) 20 mg IVPUSH NOW STA; Protocol Stop: 08/14/20 12:03 Last Admin: 08/14/20 12:06 Dose: 20 mg Documented by: Ondansetron HCl (Ondansetron 4 Mg/2 Ml Sdv) 4 mg IVPUSH NOW STA Stop: 08/14/20 09:03 Last Admin: 08/14/20 09:11 Dose: 4 mg Documented by: Ondansetron HCl (Ondansetron 4 Mg/2 Ml Sdv) 4 mg IVPUSH Q4H PRN PRN Reason: Nausea/Vomiting Last Admin: 08/15/20 16:03 Dose: 4 mg Documented by: Prochlorperazine Edisylate (Prochlorperazine 10 Mg/2 Ml Sdv) 5 mg IVPUSH ONETIME ONE Stop: 08/14/20 10:06 Last Admin: 08/14/20 10:23 Dose: 5 mg Documented by: Prochlorperazine Edisylate (Prochlorperazine 10 Mg/2 Ml Sdv) 10 mg IVPUSH ONETIME ONE Stop: 08/16/20 08:51 Last Admin: 08/16/20 08:59 Dose: 10 mg Documented by: Prochlorperazine Edisylate (Prochlorperazine 10 Mg/2 Ml Sdv) 2.5 mg IM Q6H PRN PRN Reason: Nausea/Vomiting Comments:: Patient was resting in bed on her right side but sat up in bed quickly and immediately when I addressed her. She is awake, alert, pleasant, smiling, nasal cannula in place - Exam Quality Assessment: Supplemental Oxygen, DVT Prophylaxis General: Alert, Oriented, Cooperative, No Acute Distress Lungs: Decreased Breath Sounds, Crackles Cardiovascular: Regular Rate, Irregular Rhythm, Murmurs, Other (Irregularly irregular rhythm) Extremities: Normal Inspection Peripheral Pulses: 1+: Dorsalis Pedis (L), Dorsalis Pedis (R), 2+: Radial (L), Radial (R) Skin: Warm, Dry, Intact Neurological: No New Focal Deficit Psy/Mental Status: Alert, Normal Affect, Depressed - Patient Data Lab Results Last 24 hrs: Laboratory Results - last 24 hr 08/17/20 08/17/20 08/17/20 Range/Units 06:24 06:24 06:24 WBC 11.0 H (3.0-10.3) x10-3/uL RBC 3.22 L (3.60-5.20) x10(6)uL Hgb 10.1 L (11.4-15.5) g/dL Hct 30.5 L (34.2-48.2) % MCV 94.7 (76.7-100.5) fL MCH 31.4 (23.9-33.9) pg MCHC 33.1 (31.9-34.8) g/dL RDW 13.1 (12.3-16.5) % Plt Count 201 (151-488) x10(3)uL MPV 7.9 (7.1-12.4) fL Add Manual Diff Yes PT 34.7 H (9.0-11.1) sec INR 3.48 H (1.00-1.24) Sodium 129 L (135-145) mmol/L Potassium 3.3 L (3.5-5.3) mmol/L Chloride 96 L (100-110) mmol/L Carbon Dioxide 25 (21-32) mmol/L BUN 44 H (7-18) mg/dL Creatinine 2.2 H* (0.55-1.02) mg/dL Est Cr Clr Drug Dosing 11.89 mL/min Estimated GFR (MDRD) 21 L (>60) BUN/Creatinine Ratio 20.0 (9-20) Glucose 120 H (80-116) mg/dL Calcium 8.3 L (8.6-10.2) mg/dL Result Diagrams: 08/17/20 06:24 08/17/20 06:24 Harvey Results Last 24 hrs: Microbiology 08/14/20 10:55 Aerobic Blood Culture - Preliminary Blood - Venous NO GROWTH AFTER 2 DAYS Anaerobic Blood Culture - Final 08/14/20 11:05 Aerobic Blood Culture - Preliminary Blood - Venous - Lab Draw NO GROWTH AFTER 2 DAYS Anaerobic Blood Culture - Preliminary NO GROWTH AFTER 2 DAYS Sepsis Event Note - Evaluation Sepsis Screening Result: No Definite Risk - Focused Exam Vital Signs: Vital Signs Temp Pulse Pulse Resp BP BP Pulse Ox 08/17/20 06:00 36.6 C 76 20 170/52 H 95 08/17/20 02:34 74 08/17/20 02:30 37.7 C 74 20 170/50 H 92 L 08/17/20 01:14 176/49 H 08/17/20 01:00 37.3 C 72 20 176/49 H 91 L 08/16/20 21:13 76 164/70 H 08/16/20 20:30 37.4 C 76 16 164/70 H 95 Pulse Ox 08/17/20 06:00 08/17/20 02:34 92 L 08/17/20 02:30 08/17/20 01:14 08/17/20 01:00 08/16/20 21:13 08/16/20 20:30 - Problem List & Annotations (1) Hypertensive emergency SNOMED Code(s): 211627103364248 Code(s): I16.1 - HYPERTENSIVE EMERGENCY Status: Acute Current Visit: Yes (2) KAYDEN (acute kidney injury) SNOMED Code(s): 40701663, 68745587 Code(s): N17.9 - ACUTE KIDNEY FAILURE, UNSPECIFIED Status: Acute Current Visit: Yes (3) CHF (congestive heart failure) SNOMED Code(s): 95868249 Code(s): I50.9 - HEART FAILURE, UNSPECIFIED Status: Chronic Current Visit: Yes (4) Dehydration SNOMED Code(s): 63971863 Code(s): E86.0 - DEHYDRATION Status: Acute Current Visit: Yes (5) Pneumonia SNOMED Code(s): 543419601 Code(s): J18.9 - PNEUMONIA, UNSPECIFIED ORGANISM Status: Acute Current Visit: Yes (6) Weakness SNOMED Code(s): 49526833 Code(s): R53.1 - WEAKNESS Status: Acute Current Visit: Yes (7) CAD (coronary artery disease) SNOMED Code(s): 13282395 Code(s): I25.10 - ATHSCL HEART DISEASE OF [place]' CORONARY ARTERY W/O ANG PCTRS Status: Chronic Current Visit: Yes Qualifiers: Coronary Disease-Associated Artery/Lesion type: bypass graft (8) CKD (chronic kidney disease) SNOMED Code(s): 943954371 Code(s): N18.9 - CHRONIC KIDNEY DISEASE, UNSPECIFIED Status: Chronic Current Visit: Yes Qualifiers: Chronic kidney disease stage: stage 3 (moderate) (9) HTN (hypertension) SNOMED Code(s): 29777822 Code(s): I10 - ESSENTIAL (PRIMARY) HYPERTENSION Status: Chronic Current Visit: Yes Qualifiers: Hypertension type: essential hypertension Qualified Code(s): I10 - Essential (primary) hypertension (10) Afib SNOMED Code(s): 47397686 Code(s): I48.91 - UNSPECIFIED ATRIAL FIBRILLATION Status: Chronic Current Visit: No Qualifiers: Atrial fibrillation type: permanent (11) Hyperlipemia, mixed SNOMED Code(s): 769573716 Code(s): E78.2 - MIXED HYPERLIPIDEMIA Status: Chronic Current Visit: No (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 SNOMED Code(s): 613569800 Code(s): 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 Status: Chronic Current Visit: No (13) Unsteady gait SNOMED Code(s): 92479804 Code(s): R26.81 - UNSTEADINESS ON FEET Status: Acute Current Visit: No (14) Palliative care encounter SNOMED Code(s): 391679863, 206194651 Code(s): Z51.5 - ENCOUNTER FOR PALLIATIVE CARE Status: Acute Current Visit: Yes (15) Pleural effusion, right SNOMED Code(s): 90221692 Code(s): J90 - PLEURAL EFFUSION, NOT ELSEWHERE CLASSIFIED Status: Acute Current Visit: Yes (16) Nausea SNOMED Code(s): 192805745 Code(s): R11.0 - NAUSEA Status: Acute Current Visit: Yes (17) Acute exacerbation of congestive heart failure SNOMED Code(s): 567847916, 87990352314781 Code(s): I50.9 - HEART FAILURE, UNSPECIFIED Status: Acute Current Visit: Yes - Problem List Review Problem List Initiated/Reviewed/Updated: Yes - My Orders Last 24 Hours: My Active Orders 08/16/20 08:00 Chest 2V [CR] Stat 08/16/20 09:54 Prochlorperazine [Compazine] 2.5 mg IV Q6H PRN 08/16/20 10:00 Doxycycline [Vibramycin] 100 mg Sodium Chloride 0.9% [Normal Saline] 100 ml IV Q12H Resuscitation Status Routine 08/16/20 10:01 Patient Status [ADT] Routine Pulse Oximetry [RC] PRN Vital Signs [RC] 08,12,16,20,00,04 DVT/VTE Prophylaxis Reflex [OM.PC] Per Unit Routine 08/16/20 10:03 Antiembolic Devices [RC] .Routine VTE/DVT Education [RC] Click to Edit 08/16/20 14:00 Furosemide [Lasix] 20 mg IVPUSH BIDDIURETIC 08/17/20 CXR [Chest 2V] [CR] Routine 08/17/20 06:24 CBC WITH AUTO DIFF [HEME] Routine PRO B-TYPE NATRIUR PEPT,BNPPRO [CHEM] Routine - Plan Plan:: 1. Patient initially received IV fluids due to 3-day history of vomiting and dehydration on presentation. Patient now appears to have an exacerbation of congestive heart failure. Increase Lasix from 20 mg IV twice daily to 40 mg IV twice daily. 2. Patient is continuing to experience nausea which is interfering with her oral intake. Stop Zofran and start prochlorperazine. 3. Continue home medical treatment as above for chronic conditions. 4. Ceftriaxone, doxycycline for community-acquired pneumonia 5. DVT prophylaxis: Continue home Coumadin 6. GI prophylaxis: Protonix, heart healthy diet 7. Disposition: BNP significantly increased over admission, patient likely now has acute exacerbation of congestive heart failure. Increase Lasix as above. Further recommendations based on treatment efficacy and chest x-ray when available.
[2020-08-17] MEDS: Carvedilol 25 MG Tab PO SCH ×2 (08:59→21:13)
[2020-08-17] MEDS: Aspirin 81 MG Tab.EC PO SCH (09:00)
[2020-08-17] MEDS: Hydrochlorothiazide 25 MG Tab PO SCH (09:00)
[2020-08-17] MEDS: amLODIPine 10 MG Tab PO SCH (09:01)
[2020-08-17] MEDS: Isosorbide Mononitrate 60 MG Tab.ER PO SCH (09:01)
[2020-08-17] MEDS: Furosemide 40 MG/4 ML VIAL IVPUSH SCH ×2 (09:03→14:54)
[2020-08-17] MEDS: Sodium Chloride 0.9% 10 ML Syringe FLUSH PRN ×2 (09:03→15:05)
--- NOTE | 2020-08-17 10:21 | CR ---
INDICATION: Loculated right pleural effusion, pneumonia, CHF. CHEST TWO VIEWS: PA and lateral views of the chest 08/17/20 were compared with 08/16/20 and 08/14/20. The heart is again noted to be enlarged with post median sternotomy change. Overlying EKG leads are noted. Aorta is tortuous with calcification in the arch and descending portion. Bony structures were showing evidence of a mild dextroconvex scoliosis of the upper middle thoracic spine. Pulmonary vasculature is prominent in the upper lung keith compatible with CHF. Interstitial changes compatible with interstitial lung edema are noted. There is a loculated-appearing pleural effusion in the major fissure area seen previously but appearing less prominent than on the previous study. Small left pleural effusion is noted. A degree of acute pulmonary edema could also be present with the areas of bilateral patchy infiltration present extending from the donnell. Pneumonia is also a consideration and would include the possibility of aspiration pneumonia. IMPRESSION: 1. CHF with pulmonary edema, possibly acute. 2. Cannot exclude pneumonia including aspiration pneumonia. 3. Pleural effusion appears loculated on the right and does appear to be decreased in size compared with the previous study, with a small left pleural effusion - slightly increased in size compared with the previous study. MTDD
[2020-08-17] MEDS: Doxycycline 100 MG in Sodium Chloride 0.9% 100 ML IV SCH ×2 (11:35→21:28)
[2020-08-17] MEDS: cefTRIAXone 1 GM Vial IVPUSH SCH (13:14)
[2020-08-17] MEDS ORDERED: Potassium Chloride 20 MEQ Tab.ER PO ONE (17:48)
[2020-08-17] MEDS: atorvaSTATin 40 MG Tab PO SCH (21:13)
[2020-08-18] MEDS: hydrALAZINE 25 MG Tab PO SCH ×3 (00:11→20:10)
[2020-08-18] MEDS: Albuterol/Ipratropium 3.0-0.5 MG/3 ML Neb Soln NEB PRN ×2 (04:27→13:03)
--- NOTE | 2020-08-18 07:31 | PCM.PN ---
- General Info Date of Service: 08/18/20 Admission Dx/Problem (Free Text): Admission Diagnosis/Problem Admission Diagnosis/Problem Dehydration Subjective Update: Patient states that she feels like she feels a little better but is still very fatigued and gets short of breath with only minimal exertion Functional Status: Reports: Pain Controlled, Tolerating Diet, Ambulating, Urinating - Review of Systems General: Reports: Weakness, Fatigue HEENT: Reports: No Symptoms Pulmonary: Reports: No Symptoms Cardiovascular: Reports: No Symptoms Gastrointestinal: Reports: No Symptoms Genitourinary: Reports: No Symptoms Musculoskeletal: Reports: No Symptoms Skin: Reports: No Symptoms Neurological: Reports: Weakness Psychiatric: Reports: No Symptoms - Patient Data Vitals - Most Recent: Last Vital Signs Temp 36.8 C 08/18/20 04:00 Pulse 64 08/18/20 04:27 Resp 18 08/18/20 04:00 BP 153/46 H 08/18/20 04:00 Pulse Ox 97 08/18/20 04:57 Weight - Most Recent: 38.192 kg I&O - Last 24 Hours: Intake & Output 08/17/20 08/18/20 08/18/20 22:59 06:59 14:59 Intake Total 100 450 Output Total 100 Balance 100 350 Lab Results Last 24 Hours: Laboratory Results - last 24 hr 08/17/20 08/18/20 08/18/20 Range/Units 06:24 06:15 06:15 Neut % (Auto) Bus Driver Lymph % (Auto) Bus Driver [place] % (Auto) Bus Driver Neutrophils % (Manual) 96 H (46-82) % Lymphocytes % (Manual) 2 L (13-37) % Monocytes % (Manual) 2 L (4-12) % Sodium 136 (135-145) mmol/L Potassium 3.9 (3.5-5.3) mmol/L Chloride 100 (100-110) mmol/L Carbon Dioxide 26 (21-32) mmol/L BUN 54 H D (7-18) mg/dL Creatinine 2.2 H* (0.55-1.02) mg/dL Est Cr Clr Drug Dosing 11.89 mL/min Estimated GFR (MDRD) 21 L (>60) BUN/Creatinine Ratio 24.5 H (9-20) Glucose 114 (80-116) mg/dL Calcium 8.2 L (8.6-10.2) mg/dL Magnesium 1.9 (1.8-2.5) mg/dL Harvey Results Last 24 Hours: Microbiology 08/14/20 11:05 Aerobic Blood Culture - Preliminary Blood - Venous - Lab Draw NO GROWTH AFTER 3 DAYS Anaerobic Blood Culture - Preliminary NO GROWTH AFTER 3 DAYS 08/14/20 10:55 Aerobic Blood Culture - Preliminary Blood - Venous NO GROWTH AFTER 3 DAYS Anaerobic Blood Culture - Final Med Orders - Current: Current Medications Acetaminophen (Acetaminophen 325 Mg Tab) 650 mg PO Q4H PRN PRN Reason: Pain (mild 1-3) Last Admin: 08/17/20 21:28 Dose: 650 mg Documented by: Albuterol/Ipratropium (Albuterol/Ipratropium 3.0-0.5 Mg/3 Ml Neb Soln) 3 ml NEB Q2H PRN PRN Reason: Wheezing Last Admin: 08/18/20 04:27 Dose: 3 ml Documented by: Amlodipine Besylate (Amlodipine 10 Mg Tab) 10 mg PO DAILY [facility] [place] Last Admin: 08/17/20 09:01 Dose: 10 mg Documented by: Artificial Tears (Polyvinyl Alcohol 1.4% Ophth Soln 15 Ml Bottle) 0 ml EYEBOTH QID PRN PRN Reason: DRY EYES Aspirin (Aspirin 81 Mg Tab.Ec) 81 mg PO DAILY [facility] [place] Last Admin: 08/17/20 09:00 Dose: 81 mg Documented by: Atorvastatin Calcium (Atorvastatin 40 Mg Tab) 40 mg PO BEDTIME [facility] Last Admin: 08/17/20 21:13 Dose: 40 mg Documented by: Carvedilol (Carvedilol 25 Mg Tab) 25 mg PO BID [facility] [place] Last Admin: 08/17/20 21:13 Dose: 25 mg Documented by: Cefdinir (Cefdinir 300 Mg Cap) 300 mg PO BID [facility] Stop: 08/22/20 23:59 Doxycycline Hyclate (Doxycycline 100 Mg Tab) 100 mg PO BID [facility] Stop: 08/22/20 23:59 Furosemide (Furosemide 40 Mg Tab) 40 mg PO BIDDIURETIC [facility] [place] Hydralazine HCl (Hydralazine 25 Mg Tab) 25 mg PO Q12H [facility] Last Admin: 08/18/20 00:11 Dose: 25 mg Documented by: Hydralazine HCl (Hydralazine 20 Mg/Ml Sdv) 10 mg IVPUSH Q2H PRN PRN Reason: Hypertension Last Admin: 08/15/20 06:18 Dose: 10 mg Documented by: Hydrochlorothiazide (Hydrochlorothiazide 25 Mg Tab) 25 mg PO DAILY [facility] [place] Last Admin: 08/17/20 09:00 Dose: 25 mg Documented by: Sodium Chloride (Normal Saline) 250 mls @ 50 mls/hr IV ASDIRECTED [facility] [place] Last Admin: 08/15/20 09:06 Dose: 50 mls/hr Documented by: Isosorbide Mononitrate (Isosorbide Mononitrate 60 Mg Tab.Er) 120 mg PO DAILY [facility] [place] Last Admin: 08/17/20 09:01 Dose: 120 mg Documented by: Nitroglycerin (Nitroglycerin 0.4 Mg Tab.Sl) 0.4 mg SL ASDIRECTED PRN PRN Reason: Chest Pain Prochlorperazine Edisylate (Prochlorperazine 10 Mg/2 Ml Sdv) 2.5 mg IV Q6H PRN PRN Reason: Nausea/Vomiting Sodium Chloride (Sodium Chloride 0.9% 10 Ml Syringe) 10 ml FLUSH ASDIRECTED PRN PRN Reason: Keep Vein Open Last Admin: 08/17/20 15:05 Dose: 10 ml Documented by: Warfarin Sodium (Warfarin Sliding Scale) 1 each PO ASDIRECTED [facility] [place] Warfarin Sodium (Warfarin 2.5 Mg Tab) 2.5 mg PO [id number]@1600 [facility] [place] Last Admin: 08/16/20 15:00 Dose: 2.5 mg Documented by: Warfarin Sodium (Warfarin 2.5 Mg Tab) 1.25 mg PO MoWeFr@1600 [facility] [place] Last Admin: 08/14/20 16:42 Dose: 1.25 mg Documented by: Discontinued Medications Ceftriaxone Sodium (Ceftriaxone 1 Gm Vial) 1 gm IVPUSH Q24H [facility] [place] Last Admin: 08/17/20 13:14 Dose: 1 gm Documented by: Furosemide (Furosemide 20 Mg/2 Ml Vial) 20 mg IVPUSH NOW ONE Stop: 08/16/20 09:33 Last Admin: 08/16/20 09:47 Dose: 20 mg Documented by: Furosemide (Furosemide 20 Mg/2 Ml Vial) 20 mg IVPUSH BIDDIURETIC [facility] [place] Last Admin: 08/16/20 14:57 Dose: 20 mg Documented by: Furosemide (Furosemide 40 Mg/4 Ml Vial) 40 mg IVPUSH BIDDIURETIC [facility] [place] Last Admin: 08/17/20 14:54 Dose: 40 mg Documented by: Hydralazine HCl (Hydralazine 20 Mg/Ml Sdv) 20 mg IVPUSH NOW STA Stop: 08/14/20 09:03 Last Admin: 08/14/20 09:11 Dose: 20 mg Documented by: Hydralazine HCl (Hydralazine 20 Mg/Ml Sdv) 20 mg IVPUSH NOW STA Stop: 08/14/20 11:56 Last Admin: 08/14/20 12:02 Dose: 20 mg Documented by: Sodium Chloride (Normal Saline) 1,000 mls @ 500 mls/hr IV ASDIRECTED [facility] [place] Last Admin: 08/14/20 15:32 Dose: 125 mls/hr Documented by: Prochlorperazine Edisylate 5 (mg/ Sodium Chloride) 51 mls @ 150 mls/hr IV NOW STA Stop: 08/14/20 10:24 Last Admin: 08/14/20 10:26 Dose: 150 mls/hr Documented by: Azithromycin 500 mg/ Sodium (Chloride) 250 mls @ 250 mls/hr IV Q24H [facility] [place] Stop: 08/16/20 23:55 Doxycycline Hyclate 100 mg/ (Sodium Chloride) 100 mls @ 100 mls/hr IV Q12H [facility] [place] Last Admin: 08/17/20 21:28 Dose: 100 mls/hr Documented by: Labetalol HCl (Labetalol 20 Mg/4 Ml Syringe) 20 mg IVPUSH NOW STA; Protocol Stop: 08/14/20 10:40 Last Admin: 08/14/20 10:57 Dose: 20 mg Documented by: Labetalol HCl (Labetalol 20 Mg/4 Ml Syringe) 20 mg IVPUSH NOW STA; Protocol Stop: 08/14/20 12:03 Last Admin: 08/14/20 12:06 Dose: 20 mg Documented by: Isosorbide Mononitrate Er 120 Mg *Ptom* 120 mg PO DAILY [facility] [place] Last Admin: 08/16/20 08:28 Dose: 120 mg Documented by: Ondansetron HCl (Ondansetron 4 Mg/2 Ml Sdv) 4 mg IVPUSH NOW STA Stop: 08/14/20 09:03 Last Admin: 08/14/20 09:11 Dose: 4 mg Documented by: Ondansetron HCl (Ondansetron 4 Mg/2 Ml Sdv) 4 mg IVPUSH Q4H PRN PRN Reason: Nausea/Vomiting Last Admin: 08/15/20 16:03 Dose: 4 mg Documented by: Potassium Chloride (Potassium Chloride 20 Meq Tab.Er) 40 meq PO ONETIME ONE Stop: 08/17/20 17:49 Last Admin: 08/17/20 18:07 Dose: 40 meq Documented by: Prochlorperazine Edisylate (Prochlorperazine 10 Mg/2 Ml Sdv) 5 mg IVPUSH ONETIME ONE Stop: 08/14/20 10:06 Last Admin: 08/14/20 10:23 Dose: 5 mg Documented by: Prochlorperazine Edisylate (Prochlorperazine 10 Mg/2 Ml Sdv) 10 mg IVPUSH ONE TIME ONE Stop: 08/16/20 08:51 Last Admin: 08/16/20 08:59 Dose: 10 mg Documented by: Prochlorperazine Edisylate (Prochlorperazine 10 Mg/2 Ml Sdv) 2.5 mg IM Q6H PRN PRN Reason: Nausea/Vomiting Comments:: Patient was lying in bed resting but was easily able to stand up next to the bed on her own and stand during the exam and interview. - Exam Quality Assessment: Supplemental Oxygen, DVT Prophylaxis General: Alert, Oriented, Cooperative, No Acute Distress Lungs: Crackles, Other (Significantly improved air movement with decreased crackles from yesterday, no wheezing) Cardiovascular: Regular Rate, Regular Rhythm, Murmurs Extremities: Normal Inspection Peripheral Pulses: 1+: Dorsalis Pedis (L), Dorsalis Pedis (R), 2+: Radial (L), Radial (R) Skin: Warm, Dry, Intact Neurological: No New Focal Deficit Psy/Mental Status: Alert, Normal Affect, Normal Mood - Patient Data Lab Results Last 24 hrs: Laboratory Results - last 24 hr 08/17/20 08/18/20 08/18/20 Range/Units 06:24 06:15 06:15 Neut % (Auto) Bus Driver Lymph % (Auto) Bus Driver [place] % (Auto) Bus Driver Neutrophils % (Manual) 96 H (46-82) % Lymphocytes % (Manual) 2 L (13-37) % Monocytes % (Manual) 2 L (4-12) % Sodium 136 (135-145) mmol/L Potassium 3.9 (3.5-5.3) mmol/L Chloride 100 (100-110) mmol/L Carbon Dioxide 26 (21-32) mmol/L BUN 54 H D (7-18) mg/dL Creatinine 2.2 H* (0.55-1.02) mg/dL Est Cr Clr Drug Dosing 11.89 mL/min Estimated GFR (MDRD) 21 L (>60) BUN/Creatinine Ratio 24.5 H (9-20) Glucose 114 (80-116) mg/dL Calcium 8.2 L (8.6-10.2) mg/dL Magnesium 1.9 (1.8-2.5) mg/dL Result Diagrams: 08/17/20 06:24 08/18/20 06:15 Harvey Results Last 24 hrs: Microbiology 08/14/20 11:05 Aerobic Blood Culture - Preliminary Blood - Venous - Lab Draw NO GROWTH AFTER 3 DAYS Anaerobic Blood Culture - Preliminary NO GROWTH AFTER 3 DAYS 08/14/20 10:55 Aerobic Blood Culture - Preliminary Blood - Venous NO GROWTH AFTER 3 DAYS Anaerobic Blood Culture - Final Sepsis Event Note - Evaluation Sepsis Screening Result: No Definite Risk - Focused Exam Vital Signs: Vital Signs Temp Temp Pulse Pulse Resp BP BP 08/18/20 04:57 08/18/20 04:31 08/18/20 04:27 64 08/18/20 04:00 36.8 C 68 18 153/46 H 08/18/20 00:11 130/43 L 08/17/20 23:40 37.0 C 65 18 130/43 L 08/17/20 21:40 64 08/17/20 21:13 67 172/52 H 08/17/20 21:11 37.4 C 76 16 173/52 H Pulse Ox Pulse Ox 08/18/20 04:57 97 08/18/20 04:31 93 L 08/18/20 04:27 90 L 08/18/20 04:00 91 L 08/18/20 00:11 08/17/20 23:40 93 L 08/17/20 21:40 94 L 08/17/20 21:13 08/17/20 21:11 93 L - Problem List & Annotations (1) Hypertensive emergency SNOMED Code(s): 254744297425966 Code(s): I16.1 - HYPERTENSIVE EMERGENCY Status: Resolved Current Visit: Yes (2) KAYDEN (acute kidney injury) SNOMED Code(s): 98638814, 76523919 Code(s): N17.9 - ACUTE KIDNEY FAILURE, UNSPECIFIED Status: Acute Current Visit: Yes (3) CHF (congestive heart failure) SNOMED Code(s): 66190628 Code(s): I50.9 - HEART FAILURE, UNSPECIFIED Status: Chronic Current Visit: Yes (4) Dehydration SNOMED Code(s): 39644894 Code(s): E86.0 - DEHYDRATION Status: Resolved Current Visit: Yes (5) Pneumonia SNOMED Code(s): 886605356 Code(s): J18.9 - PNEUMONIA, UNSPECIFIED ORGANISM Status: Acute Current Visit: Yes (6) Weakness SNOMED Code(s): 91351304 Code(s): R53.1 - WEAKNESS Status: Acute Current Visit: Yes (7) CAD (coronary artery disease) SNOMED Code(s): 19861139 Code(s): I25.10 - ATHSCL HEART DISEASE OF [place] CORONARY ARTERY W/O ANG PCTRS Status: Chronic Current Visit: Yes Qualifiers: Coronary Disease-Associated Artery/Lesion type: bypass graft (8) CKD (chronic kidney disease) SNOMED Code(s): 198606825 Code(s): N18.9 - CHRONIC KIDNEY DISEASE, UNSPECIFIED Status: Chronic Current Visit: Yes Qualifiers: Chronic kidney disease stage: stage 3 (moderate) (9) HTN (hypertension) SNOMED Code(s): 79412638 Code(s): I10 - ESSENTIAL (PRIMARY) HYPERTENSION Status: Chronic Current Visit: Yes Qualifiers: Hypertension type: essential hypertension Qualified Code(s): I10 - Essential (primary) hypertension (10) Afib SNOMED Code(s): 31665641 Code(s): I48.91 - UNSPECIFIED ATRIAL FIBRILLATION Status: Chronic Current Visit: No Qualifiers: Atrial fibrillation type: permanent (11) Hyperlipemia, mixed SNOMED Code(s): 949463659 Code(s): E78.2 - MIXED HYPERLIPIDEMIA Status: Chronic Current Visit: No (12) 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 SNOMED Code(s): 650332694 Code(s): Z79.01 - CUSTODIAL (CURRENT) USE OF ANTICOAGULANTS Status: Chronic Current Visit: No (13) Unsteady gait SNOMED Code(s): 91909615 Code(s): R26.81 - UNSTEADINESS ON FEET Status: Acute Current Visit: No (14) Palliative care encounter SNOMED Code(s): 618963597, 113127843 Code(s): Z51.5 - ENCOUNTER FOR PALLIATIVE CARE Status: Acute Current Visit: Yes (15) Pleural effusion, right SNOMED Code(s): 65694397 Code(s): J90 - PLEURAL EFFUSION, NOT ELSEWHERE CLASSIFIED Status: Acute Current Visit: Yes (16) Nausea SNOMED Code(s): 420966742 Code(s): R11.0 - NAUSEA Status: Resolved Current Visit: Yes (17) Acute exacerbation of congestive heart failure SNOMED Code(s): 607664201, 69855912772025 Code(s): I50.9 - HEART FAILURE, UNSPECIFIED Status: Acute Current Visit: Yes - Problem List Review Problem List Initiated/Reviewed/Updated: Yes - My Orders Last 24 Hours: My Active Orders 08/17/20 09:00 Isosorbide Mononitrate [Imdur] 120 mg PO DAILY 08/17/20 09:55 OT Evaluation and Treatment [CONS] Routine PT Evaluation and Treatment [CONS] Routine 08/18/20 08:00 [facility] [US] Urgent Furosemide [Lasix] 40 mg PO BIDDIURETIC 08/18/20 09:00 Cefdinir [Omnicef] 300 mg PO BID Doxycycline [Vibra-Tabs] 100 mg PO BID - Plan Plan:: 1. Patient initially received IV fluids due to 3-day history of vomiting and dehydration on presentation receiving IV fluids. Patient likely had acute exacerbation of chronic congestive heart failure. Patient was increased to IV Lasix 40 mg twice daily. Chest x-ray performed on 08/17/2020 showed improving congestive heart failure. Reduce Lasix to 40 mg twice daily p.o. 2. Patient nausea improving. Encourage p.o. intake including supplemental nutrition. 3. Continue home medical treatment as above for chronic conditions. 4. Ceftriaxone, doxycycline for community-acquired pneumonia, changed to oral medications on 08/18/2020. 5. DVT prophylaxis: Continue home Coumadin 6. GI prophylaxis: Protonix, heart healthy diet 7. Disposition: Air movement in the lungs bilaterally is significantly improved today. We will try to wean the patient down from supplemental oxygen today and encourage ambulation and supplemental nutrition. Changed medications from IV to p.o. today. Discharge possible tomorrow likely within 2 days.
[2020-08-18] MEDS: Carvedilol 25 MG Tab PO SCH ×2 (08:20→20:04)
[2020-08-18] MEDS: Hydrochlorothiazide 25 MG Tab PO SCH (08:21)
[2020-08-18] MEDS: Aspirin 81 MG Tab.EC PO SCH (08:21)
[2020-08-18] MEDS: Isosorbide Mononitrate 60 MG Tab.ER PO SCH (08:21)
[2020-08-18] MEDS: amLODIPine 10 MG Tab PO SCH (08:22)
[2020-08-18] MEDS: Furosemide 40 MG Tab PO SCH ×2 (08:23→14:08)
[2020-08-18] MEDS: Doxycycline 100 MG Tab PO SCH ×2 (08:25→20:04)
[2020-08-18] MEDS ORDERED: Cefdinir 300 MG Cap PO SCH (09:00)
[2020-08-18] MEDS: atorvaSTATin 40 MG Tab PO SCH (20:04)
[2020-08-19] MEDS: Albuterol/Ipratropium 3.0-0.5 MG/3 ML Neb Soln NEB PRN ×4 (01:12→13:35)
[2020-08-19] MEDS: Albuterol/Ipratropium 3.0-0.5 MG/3 ML Neb Soln NEB SCH ×2 (07:49→11:07)
[2020-08-19] MEDS: Furosemide 40 MG/4 ML VIAL IVPUSH SCH ×2 (08:00→14:00)
[2020-08-19] MEDS ORDERED: Metolazone 2.5 MG Tab PO SCH (08:00)
[2020-08-19] MEDS ORDERED: Doxycycline 100 MG in Sodium Chloride 0.9% 100 ML IV SCH (08:00)
[2020-08-19] MEDS: Isosorbide Mononitrate 60 MG Tab.ER PO SCH (08:02)
[2020-08-19] MEDS: Sodium Chloride 0.9% 10 ML Syringe FLUSH PRN ×2 (08:06→13:37)
[2020-08-19] MEDS: hydrALAZINE 25 MG Tab PO SCH (08:07)
[2020-08-19] MEDS: Carvedilol 25 MG Tab PO SCH (08:08)
[2020-08-19] MEDS: Hydrochlorothiazide 25 MG Tab PO SCH (08:09)
[2020-08-19] MEDS: amLODIPine 10 MG Tab PO SCH (08:09)
[2020-08-19] MEDS: Aspirin 81 MG Tab.EC PO SCH (08:09)
--- NOTE | 2020-08-19 08:20 | PCM.PN ---
- General Info Date of Service: 08/19/20 Admission Dx/Problem (Free Text): Admission Diagnosis/Problem Admission Diagnosis/Problem Dehydration Subjective Update: Patient states that over the last 24 hours she feels increased weakness, shortness of breath, wheezing - Review of Systems General: Reports: Weakness, Fatigue, Malaise HEENT: Reports: No Symptoms Pulmonary: Reports: Shortness of Breath, Wheezing Cardiovascular: Reports: No Symptoms Gastrointestinal: Reports: No Symptoms Genitourinary: Reports: No Symptoms Musculoskeletal: Reports: No Symptoms Skin: Reports: No Symptoms Neurological: Reports: Difficulty Walking, Weakness Psychiatric: Reports: No Symptoms - Patient Data Vitals - Most Recent: Last Vital Signs Temp 36.9 C 08/19/20 03:52 Pulse 80 08/19/20 08:08 Resp 24 H 08/19/20 03:52 BP 174/52 H 08/19/20 08:09 Pulse Ox 93 L 08/19/20 06:40 Weight - Most Recent: 41.095 kg I&O - Last 24 Hours: Intake & Output 08/18/20 08/19/20 08/19/20 22:59 06:59 14:59 Intake Total 240 Balance 240 Lab Results Last 24 Hours: Laboratory Results - last 24 hr 08/19/20 08/19/20 08/19/20 Range/Units 06:35 06:35 06:35 WBC 10.1 (3.0-10.3) x10-3/uL RBC 3.01 L (3.60-5.20) x10(6)uL Hgb 9.5 L (11.4-15.5) g/dL Hct 28.4 L (34.2-48.2) % MCV 94.1 (76.7-100.5) fL MCH 31.5 (23.9-33.9) pg MCHC 33.4 (31.9-34.8) g/dL RDW 13.0 (12.3-16.5) % Plt Count 241 (151-488) x10(3)uL MPV 8.3 (7.1-12.4) fL Neut % (Auto) 90.5 H (30.8-76.2) % Lymph % (Auto) 2.6 L (18.4-52.1) % Sanders % (Auto) 6.3 (4.4-15.7) % Eos % (Auto) 0.3 L (0.6-8.1) % Baso % (Auto) 0.3 (0.2-1.5) % Neut # (Auto) 9.2 H (1.5-6.3) x10-3/uL Lymph # (Auto) 0.3 L (1.0-4.4) x10-3/uL Sanders # (Auto) 0.6 (0.3-1.0) x10-3/uL Eos # (Auto) 0.0 (0.0-0.8) x10-3/uL Baso # (Auto) 0.0 (0.0-0.1) x10-3/uL PT (9.0-11.1) sec INR (1.00-1.24) Sodium 137 (135-145) mmol/L Potassium 3.5 (3.5-5.3) mmol/L Chloride 100 (100-110) mmol/L Carbon Dioxide 27 (21-32) mmol/L BUN 66 H D (7-18) mg/dL Creatinine 2.2 H* (0.55-1.02) mg/dL Est Cr Clr Drug Dosing 12.79 mL/min Estimated GFR (MDRD) 21 L (>60) BUN/Creatinine Ratio 30.0 H (9-20) Glucose 138 H (80-116) mg/dL Calcium 8.4 L (8.6-10.2) mg/dL NT-Pro-B Natriuret Pep 62287 H* (<=450) pg/mL 08/19/20 Range/Units 06:35 WBC (3.0-10.3) x10-3/uL RBC (3.60-5.20) x10(6)uL Hgb (11.4-15.5) g/dL Hct (34.2-48.2) % MCV (76.7-100.5) fL MCH (23.9-33.9) pg MCHC (31.9-34.8) g/dL RDW (12.3-16.5) % Plt Count (151-488) x10(3)uL MPV (7.1-12.4) fL Neut % (Auto) (30.8-76.2) % Lymph % (Auto) (18.4-52.1) % Sanders % (Auto) (4.4-15.7) % Eos % (Auto) (0.6-8.1) % Baso % (Auto) (0.2-1.5) % Neut # (Auto) (1.5-6.3) x10-3/uL Lymph # (Auto) (1.0-4.4) x10-3/uL Sanders # (Auto) (0.3-1.0) x10-3/uL Eos # (Auto) (0.0-0.8) x10-3/uL Baso # (Auto) (0.0-0.1) x10-3/uL PT 19.5 H (9.0-11.1) sec INR 1.89 H (1.00-1.24) Sodium (135-145) mmol/L Potassium (3.5-5.3) mmol/L Chloride (100-110) mmol/L Carbon Dioxide (21-32) mmol/L BUN (7-18) mg/dL Creatinine (0.55-1.02) mg/dL Est Cr Clr Drug Dosing mL/min Estimated GFR (MDRD) (>60) BUN/Creatinine Ratio (9-20) Glucose (80-116) mg/dL Calcium (8.6-10.2) mg/dL NT-Pro-B Natriuret Pep (<=450) pg/mL [facility] Results Last 24 Hours: Microbiology 08/14/20 10:55 Aerobic Blood Culture - Preliminary Blood - Venous NO GROWTH AFTER 4 DAYS Anaerobic Blood Culture - Final 08/14/20 11:05 Aerobic Blood Culture - Preliminary Blood - Venous - Lab Draw NO GROWTH AFTER 4 DAYS Anaerobic Blood Culture - Preliminary NO GROWTH AFTER 4 DAYS Med Orders - Current: Current Medications Acetaminophen (Acetaminophen 325 Mg Tab) 650 mg PO Q4H PRN PRN Reason: Pain (mild 1-3) Last Admin: 08/17/20 21:28 Dose: 650 mg Documented by: Albuterol/Ipratropium (Albuterol/Ipratropium 3.0-0.5 Mg/3 Ml Neb Soln) 3 ml NEB Q2H PRN PRN Reason: Wheezing Last Admin: 08/19/20 06:24 Dose: 3 ml Documented by: Albuterol/Ipratropium (Albuterol/Ipratropium 3.0-0.5 Mg/3 Ml Neb Soln) 3 ml NEB Q4H [facility] Last Admin: 08/19/20 07:49 Dose: 3 ml Documented by: Amlodipine Besylate (Amlodipine 10 Mg Tab) 10 mg PO DAILY [facility] Last Admin: 08/19/20 08:09 Dose: 10 mg Documented by: Artificial Tears (Polyvinyl Alcohol 1.4% Ophth Soln 15 Ml Bottle) 0 ml EYEBOTH QID PRN PRN Reason: DRY EYES Aspirin (Aspirin 81 Mg Tab.Ec) 81 mg PO DAILY [facility] Last Admin: 08/19/20 08:09 Dose: 81 mg Documented by: Atorvastatin Calcium (Atorvastatin 40 Mg Tab) 40 mg PO BEDTIME [facility] Last Admin: 08/18/20 20:04 Dose: 40 mg Documented by: Carvedilol (Carvedilol 25 Mg Tab) 25 mg PO BID [facility] Last Admin: 08/19/20 08:08 Dose: 25 mg Documented by: Furosemide (Furosemide 40 Mg/4 Ml Vial) 40 mg IVPUSH BIDDIURETIC [facility] Last Admin: 08/19/20 08:00 Dose: 40 mg Documented by: Hydralazine HCl (Hydralazine 20 Mg/Ml Sdv) 10 mg IVPUSH Q2H PRN PRN Reason: Hypertension Last Admin: 08/15/20 06:18 Dose: 10 mg Documented by: Hydralazine HCl (Hydralazine 25 Mg Tab) 25 mg PO Q12H [facility] Last Admin: 08/19/20 08:07 Dose: 25 mg Documented by: Hydrochlorothiazide (Hydrochlorothiazide 25 Mg Tab) 25 mg PO DAILY [facility] Last Admin: 08/19/20 08:09 Dose: 25 mg Documented by: Sodium Chloride (Normal Saline) 250 mls @ 50 mls/hr IV ASDIRECTED [facility] Last Admin: 08/15/20 09:06 Dose: 50 mls/hr Documented by: Piperacillin Sod/Tazobactam (Sod 2.25 gm/ Sodium Chloride) 50 mls @ 100 mls/hr IV Q6H [facility] Doxycycline Hyclate 100 mg/ (Sodium Chloride) 100 mls @ 100 mls/hr IV Q12H [facility] Last Admin: 08/19/20 08:11 Dose: 100 mls/hr Documented by: Isosorbide Mononitrate (Isosorbide Mononitrate 60 Mg Tab.Er) 120 mg PO DAILY [facility] Last Admin: 08/19/20 08:02 Dose: 120 mg Documented by: Metolazone (Metolazone 2.5 Mg Tab) 2.5 mg PO DAILY@0730 [facility] Last Admin: 08/19/20 07:49 Dose: 2.5 mg Documented by: Nitroglycerin (Nitroglycerin 0.4 Mg Tab.Sl) 0.4 mg SL ASDIRECTED PRN PRN Reason: Chest Pain Prochlorperazine Edisylate (Prochlorperazine 10 Mg/2 Ml Sdv) 2.5 mg IV Q6H PRN PRN Reason: Nausea/Vomiting Sodium Chloride (Sodium Chloride 0.9% 10 Ml Syringe) 10 ml FLUSH ASDIRECTED PRN PRN Reason: Keep Vein Open Last Admin: 08/19/20 08:06 Dose: 10 ml Documented by: Warfarin Sodium (Warfarin Sliding Scale) 1 each PO ASDIRECTED [facility] Warfarin Sodium (Warfarin 2.5 Mg Tab) 2.5 mg PO SuTuThSa@1600 [facility] Last Admin: 08/16/20 15:00 Dose: 2.5 mg Documented by: Warfarin Sodium (Warfarin 2.5 Mg Tab) 1.25 mg PO MoWeFr@1600 [facility] Last Admin: 08/14/20 16:42 Dose: 1.25 mg Documented by: Warfarin Sodium (Warfarin 2.5 Mg Tab) 2.5 mg PO ONETIME ONE Stop: 08/19/20 16:01 Discontinued Medications Cefdinir (Cefdinir 300 Mg Cap) 300 mg PO DAILY [facility] Stop: 08/22/20 23:59 Last Admin: 08/18/20 08:25 Dose: 300 mg Documented by: Ceftriaxone Sodium (Ceftriaxone 1 Gm Vial) 1 gm IVPUSH Q24H [facility] Last Admin: 08/17/20 13:14 Dose: 1 gm Documented by: Doxycycline Hyclate (Doxycycline 100 Mg Tab) 100 mg PO BID [facility] Stop: 08/22/20 23:59 Last Admin: 08/18/20 20:04 Dose: 100 mg Documented by: Furosemide (Furosemide 20 Mg/2 Ml Vial) 20 mg IVPUSH NOW ONE Stop: 08/16/20 09:33 Last Admin: 08/16/20 09:47 Dose: 20 mg Documented by: Furosemide (Furosemide 20 Mg/2 Ml Vial) 20 mg IVPUSH BIDDIURETIC [facility] Last Admin: 08/16/20 14:57 Dose: 20 mg Documented by: Furosemide (Furosemide 40 Mg/4 Ml Vial) 40 mg IVPUSH BIDDIURETIC [facility] Last Admin: 08/17/20 14:54 Dose: 40 mg Documented by: Furosemide (Furosemide 40 Mg Tab) 40 mg PO BIDDIURETIC [facility] Last Admin: 08/18/20 14:08 Dose: 40 mg Documented by: Hydralazine HCl (Hydralazine 20 Mg/Ml Sdv) 20 mg IVPUSH NOW STA Stop: 08/14/20 09:03 Last Admin: 08/14/20 09:11 Dose: 20 mg Documented by: Hydralazine HCl (Hydralazine 20 Mg/Ml Sdv) 20 mg IVPUSH NOW STA Stop: 08/14/20 11:56 Last Admin: 08/14/20 12:02 Dose: 20 mg Documented by: Hydralazine HCl (Hydralazine 25 Mg Tab) 25 mg PO Q12H [facility] Last Admin: 08/18/20 00:11 Dose: 25 mg Documented by: Sodium Chloride (Normal Saline) 1,000 mls @ 500 mls/hr IV ASDIRECTED [facility] Last Admin: 08/14/20 15:32 Dose: 125 mls/hr Documented by: Prochlorperazine Edisylate 5 (mg/ Sodium Chloride) 51 mls @ 150 mls/hr IV NOW STA Stop: 08/14/20 10:24 Last Admin: 08/14/20 10:26 Dose: 150 mls/hr Documented by: Azithromycin 500 mg/ Sodium (Chloride) 250 mls @ 250 mls/hr IV Q24H [facility] Stop: 08/16/20 23:55 Doxycycline Hyclate 100 mg/ (Sodium Chloride) 100 mls @ 100 mls/hr IV Q12H [facility] Last Admin: 08/17/20 21:28 Dose: 100 mls/hr Documented by: Labetalol HCl (Labetalol 20 Mg/4 Ml Syringe) 20 mg IVPUSH NOW STA; Protocol Stop: 08/14/20 10:40 Last Admin: 08/14/20 10:57 Dose: 20 mg Documented by: Labetalol HCl (Labetalol 20 Mg/4 Ml Syringe) 20 mg IVPUSH NOW STA; Protocol Stop: 08/14/20 12:03 Last Admin: 08/14/20 12:06 Dose: 20 mg Documented by: Isosorbide Mononitrate Er 120 Mg *Ptom* 120 mg PO DAILY [facility] Last Admin: 08/16/20 08:28 Dose: 120 mg Documented by: Ondansetron HCl (Ondansetron 4 Mg/2 Ml Sdv) 4 mg IVPUSH NOW STA Stop: 08/14/20 09:03 Last Admin: 08/14/20 09:11 Dose: 4 mg Documented by: Ondansetron HCl (Ondansetron 4 Mg/2 Ml Sdv) 4 mg IVPUSH Q4H PRN PRN Reason: Nausea/Vomiting Last Admin: 08/15/20 16:03 Dose: 4 mg Documented by: Potassium Chloride (Potassium Chloride 20 Meq Tab.Er) 40 meq PO ONETIME ONE Stop: 08/17/20 17:49 Last Admin: 08/17/20 18:07 Dose: 40 meq Documented by: Prochlorperazine Edisylate (Prochlorperazine 10 Mg/2 Ml Sdv) 5 mg IVPUSH ONETIME ONE Stop: 08/14/20 10:06 Last Admin: 08/14/20 10:23 Dose: 5 mg Documented by: Prochlorperazine Edisylate (Prochlorperazine 10 Mg/2 Ml Sdv) 10 mg IVPUSH ONETI ME ONE Stop: 08/16/20 08:51 Last Admin: 08/16/20 08:59 Dose: 10 mg Documented by: Prochlorperazine Edisylate (Prochlorperazine 10 Mg/2 Ml Sdv) 2.5 mg IM Q6H PRN PRN Reason: Nausea/Vomiting Comments:: Patient is lying in bed on her right side, she is awake and alert but appears tired/fatigued - Exam Quality Assessment: Supplemental Oxygen, DVT Prophylaxis General: Alert, Oriented, Cooperative, Mild Distress Lungs: Decreased Breath Sounds, Crackles, Wheezing Cardiovascular: Regular Rate, Regular Rhythm, Murmurs GI/Abdominal Exam: Normal Bowel Sounds Extremities: Normal Inspection Peripheral Pulses: 1+: Dorsalis Pedis (L), Dorsalis Pedis (R), 2+: Radial (L), Radial (R) Skin: Warm, Dry, Intact Neurological: No New Focal Deficit Psy/Mental Status: Alert, Normal Affect, Normal Mood - Patient Data Lab Results Last 24 hrs: Laboratory Results - last 24 hr 08/19/20 08/19/20 08/19/20 Range/Units 06:35 06:35 06:35 WBC 10.1 (3.0-10.3) x10-3/uL RBC 3.01 L (3.60-5.20) x10(6)uL Hgb 9.5 L (11.4-15.5) g/dL Hct 28.4 L (34.2-48.2) % MCV 94.1 (76.7-100.5) fL MCH 31.5 (23.9-33.9) pg MCHC 33.4 (31.9-34.8) g/dL RDW 13.0 (12.3-16.5) % Plt Count 241 (151-488) x10(3)uL MPV 8.3 (7.1-12.4) fL Neut % (Auto) 90.5 H (30.8-76.2) % Lymph % (Auto) 2.6 L (18.4-52.1) % Sanders % (Auto) 6.3 (4.4-15.7) % Eos % (Auto) 0.3 L (0.6-8.1) % Baso % (Auto) 0.3 (0.2-1.5) % Neut # (Auto) 9.2 H (1.5-6.3) x10-3/uL Lymph # (Auto) 0.3 L (1.0-4.4) x10-3/uL Sanders # (Auto) 0.6 (0.3-1.0) x10-3/uL Eos # (Auto) 0.0 (0.0-0.8) x10-3/uL Baso # (Auto) 0.0 (0.0-0.1) x10-3/uL PT (9.0-11.1) sec INR (1.00-1.24) Sodium 137 (135-145) mmol/L Potassium 3.5 (3.5-5.3) mmol/L Chloride 100 (100-110) mmol/L Carbon Dioxide 27 (21-32) mmol/L BUN 66 H D (7-18) mg/dL Creatinine 2.2 H* (0.55-1.02) mg/dL Est Cr Clr Drug Dosing 12.79 mL/min Estimated GFR (MDRD) 21 L (>60) BUN/Creatinine Ratio 30.0 H (9-20) Glucose 138 H (80-116) mg/dL Calcium 8.4 L (8.6-10.2) mg/dL NT-Pro-B Natriuret Pep 35722 H* (<=450) pg/mL 08/19/20 Range/Units 06:35 WBC (3.0-10.3) x10-3/uL RBC (3.60-5.20) x10(6)uL Hgb (11.4-15.5) g/dL Hct (34.2-48.2) % MCV (76.7-100.5) fL MCH (23.9-33.9) pg MCHC (31.9-34.8) g/dL RDW (12.3-16.5) % Plt Count (151-488) x10(3)uL MPV (7.1-12.4) fL Neut % (Auto) (30.8-76.2) % Lymph % (Auto) (18.4-52.1) % Sanders % (Auto) (4.4-15.7) % Eos % (Auto) (0.6-8.1) % Baso % (Auto) (0.2-1.5) % Neut # (Auto) (1.5-6.3) x10-3/uL Lymph # (Auto) (1.0-4.4) x10-3/uL Sanders # (Auto) (0.3-1.0) x10-3/uL Eos # (Auto) (0.0-0.8) x10-3/uL Baso # (Auto) (0.0-0.1) x10-3/uL PT 19.5 H (9.0-11.1) sec INR 1.89 H (1.00-1.24) Sodium (135-145) mmol/L Potassium (3.5-5.3) mmol/L Chloride (100-110) mmol/L Carbon Dioxide (21-32) mmol/L BUN (7-18) mg/dL Creatinine (0.55-1.02) mg/dL Est Cr Clr Drug Dosing mL/min Estimated GFR (MDRD) (>60) BUN/Creatinine Ratio (9-20) Glucose (80-116) mg/dL Calcium (8.6-10.2) mg/dL NT-Pro-B Natriuret Pep (<=450) pg/mL Result Diagrams: 08/19/20 06:35 08/19/20 06:35 Harvey Results Last 24 hrs: Microbiology 08/14/20 10:55 Aerobic Blood Culture - Preliminary Blood - Venous NO GROWTH AFTER 4 DAYS Anaerobic Blood Culture - Final 08/14/20 11:05 Aerobic Blood Culture - Preliminary Blood - Venous - Lab Draw NO GROWTH AFTER 4 DAYS Anaerobic Blood Culture - Preliminary NO GROWTH AFTER 4 DAYS Sepsis Event Note - Evaluation Sepsis Screening Result: No Definite Risk - Focused Exam Vital Signs: Vital Signs Temp Pulse Pulse Resp BP BP Pulse Ox 08/19/20 08:09 174/52 H 08/19/20 08:08 80 174/52 H 08/19/20 08:07 174/52 H 08/19/20 06:40 08/19/20 03:52 36.9 C 75 24 H 150/48 H 90 L 08/19/20 01:50 08/19/20 01:30 08/19/20 01:00 36.9 C 75 24 H 153/38 H 90 L Pulse Ox 08/19/20 08:09 08/19/20 08:08 08/19/20 08:07 08/19/20 06:40 93 L 08/19/20 03:52 08/19/20 01:50 90 L 08/19/20 01:30 87 L 08/19/20 01:00 - Problem List & Annotations (1) Hypertensive emergency SNOMED Code(s): 991739787653444 Code(s): I16.1 - HYPERTENSIVE EMERGENCY Status: Resolved Current Visit: Yes (2) KAYDEN (acute kidney injury) SNOMED Code(s): 64185520, 35917291 Code(s): N17.9 - ACUTE KIDNEY FAILURE, UNSPECIFIED Status: Acute Current Visit: Yes (3) CHF (congestive heart failure) SNOMED Code(s): 63334512 Code(s): I50.9 - HEART FAILURE, UNSPECIFIED Status: Chronic Current Visit: Yes (4) Dehydration SNOMED Code(s): 91787905 Code(s): E86.0 - DEHYDRATION Status: Resolved Current Visit: Yes (5) Pneumonia SNOMED Code(s): 568311482 Code(s): J18.9 - PNEUMONIA, UNSPECIFIED ORGANISM Status: Acute Current Visit: Yes (6) Weakness SNOMED Code(s): 82895583 Code(s): R53.1 - WEAKNESS Status: Acute Current Visit: Yes (7) CAD (coronary artery disease) SNOMED Code(s): 77158128 Code(s): I25.10 - ATHSCL HEART DISEASE OF [place] CORONARY ARTERY W/O ANG PCTRS Status: Chronic Current Visit: Yes Qualifiers: Coronary Disease-Associated Artery/Lesion type: bypass graft (8) CKD (chronic kidney disease) SNOMED Code(s): 693838070 Code(s): N18.9 - CHRONIC KIDNEY DISEASE, UNSPECIFIED Status: Chronic Current Visit: Yes Qualifiers: Chronic kidney disease stage: stage 3 (moderate) (9) HTN (hypertension) SNOMED Code(s): 65904003 Code(s): I10 - ESSENTIAL (PRIMARY) HYPERTENSION Status: Chronic Current Visit: Yes Qualifiers: Hypertension type: essential hypertension Qualified Code(s): I10 - Essential (primary) hypertension (10) Afib SNOMED Code(s): 79073240 Code(s): I48.91 - UNSPECIFIED ATRIAL FIBRILLATION Status: Chronic Current Visit: No Qualifiers: Atrial fibrillation type: permanent (11) Hyperlipemia, mixed SNOMED Code(s): 598345034 Code(s): E78.2 - MIXED HYPERLIPIDEMIA Status: Chronic Current Visit: No (12) technician terminal and repeater (current) use of anticoagulants SNOMED Code(s): 146669216 Code(s): Z79.01 - INTERMEDIATE (CURRENT) USE OF ANTICOAGULANTS Status: Chronic Current Visit: No (13) Unsteady gait SNOMED Code(s): 34693225 Code(s): R26.81 - UNSTEADINESS ON FEET Status: Acute Current Visit: No (14) Palliative care encounter SNOMED Code(s): 913937073, 021158272 Code(s): Z51.5 - ENCOUNTER FOR PALLIATIVE CARE Status: Acute Current Visit: Yes (15) Pleural effusion, right SNOMED Code(s): 46214450 Code(s): J90 - PLEURAL EFFUSION, NOT ELSEWHERE CLASSIFIED Status: Acute Current Visit: Yes (16) Nausea SNOMED Code(s): 661690931 Code(s): R11.0 - NAUSEA Status: Resolved Current Visit: Yes (17) Acute exacerbation of congestive heart failure SNOMED Code(s): 334371387, 65770314099239 Code(s): I50.9 - HEART FAILURE, UNSPECIFIED Status: Acute Current Visit: Yes - Problem List Review Problem List Initiated/Reviewed/Updated: Yes - My Orders Last 24 Hours: My Active Orders 08/18/20 07:49 Discontinue Telemetry Monitoring [Cardiac Monitoring Discontinue] [RC] Click to Edit 08/18/20 08:00 [employer] [[place]] Urgent 08/18/20 08:12 RT Incentive Spirometry [RC] Q2HR 08/18/20 09:00 hydrALAZINE [Apresoline] 25 mg PO Q12H 08/19/20 07:27 RT Aerosol Therapy [RC] ASDIRECTED 08/19/20 07:35 CXR [Chest 2V] [CR] Routine 08/19/20 08:00 Albuterol/Ipratropium [DuoNeb 3.0-0.5 MG/3 ML] 3 ml NEB Q4H Doxycycline [Vibramycin] 100 mg Sodium Chloride 0.9% [Normal Saline] 100 ml IV Q12H metOLazone [Zaroxolyn] 2.5 mg PO DAILY@0730 08/19/20 09:00 Furosemide [Lasix] 40 mg IVPUSH BIDDIURETIC Piperacillin/Tazobactam [Zosyn] 2.25 gm Sodium Chloride 0.9% [Normal Saline] 50 ml IV Q6H 08/19/20 16:00 Warfarin [Coumadin] 2.5 mg PO ONETIME ONE - Plan Plan:: 1. Patient initially received IV fluids due to 3-day history of vomiting and dehydration on presentation receiving IV fluids. Patient likely had acute exacerbation of chronic congestive heart failure. Chest x-ray performed on 08/17/2020 showed improving congestive heart failure. Patient was showing improvement yesterday and was changed to oral medications including antibiotics and Lasix. Overnight the patient has become increasingly short of breath and not only has crackles in her lungs but now has wheezing. Radha briscoe added scheduled to the current as needed orders, incentive spirometer every 2 hours minimum, changed to metolazone 2.5 mg followed by 40 mg IV Lasix twice daily, change antibiotics to IV Zosyn and doxycycline. 2. Encourage p.o. intake including supplemental nutrition. 3. Continue home medical treatment as above for chronic conditions. 4. Pneumonia with pleural effusion: Changed to IV Zosyn renal dosing and change back to IV doxycycline. Chest x-ray today. Checks her x-ray performed on 08/17/2020 showed likely improvement in right pleural effusion but increased left pleural effusion. If patient effusion is unchanged or larger we will consult surgery for thoracentesis. 5. DVT prophylaxis: Continue home Coumadin 6. GI prophylaxis: Protonix, heart healthy diet 7. Disposition: Based on clinical improvement. BNP improved but creatinine has not and patient's breathing is more labored and she requires increased oxygen at this time.
[2020-08-19] MEDS ORDERED: Piperacillin/Tazobactam 2.25 GM in Sodium Chloride 0.9% 50 ML IV SCH (09:00)
[2020-08-19 12:34] VITALS: BP 153/49; PULSE 75
--- NOTE | 2020-08-19 13:01 | PCM.DCSUM1 ---
Discharge Summary - Hospital Course Free Text/Narrative:: 80-year-old lady initially came to the emergency department on 08/14/2020 due to a 3-day history of nausea, vomiting, and weakness. She was found to be dehydrated and likely have community-acquired pneumonia. She was started on ceftriaxone and doxycycline. She was not given azithromycin because of her QT interval being at the upper limits of normal. She was given gentle IV fluids and her Lasix was initially held because of initial presentation and dehydration. However, she was given too much IV fluid when transfer to the floor and had an acute exacerbation of congestive heart failure. She was started on IV Lasix. After 2 days she seemed to be improving with better air movement in her lungs bilaterally but with crease crackles. She seemed to be feeling better and was more active but continued to have shortness of breath with exertion. She was transitioned to oral Lasix at an increased rate from her baseline and oral antibiotics. Overnight her condition deteriorated. She now has increased crackles with wheezes, shortness of breath with exertion, malaise, and chest x- ray and chest CT shows likely interval increase in pneumonia with mild bilateral effusions. Patient will be transferred to [facility] for heightened pulmonology care. Note that the patient also has acute kidney injury on chronic kidney disease. Her creatinine was initially 1.8 and is increased to 2.2 during her stay. It has been stable at 2.2 for the last 3 days. Diagnosis: Stroke: No - Discharge Data Discharge Date: 08/19/20 Discharge Disposition: DC/Tfer to [facility] (Former[facility]3] Hospital 02 Condition: Fair - Referral to Home Health Primary Care Physician: Federico Alvarenga MD - Discharge Diagnosis/Problem(s) (1) Hypertensive emergency SNOMED Code(s): 564641562723395 ICD Code: I16.1 - HYPERTENSIVE EMERGENCY Status: Resolved Current Visit: Yes (2) KAYDEN (acute kidney injury) SNOMED Code(s): 71673453, 79575089 ICD Code: N17.9 - ACUTE KIDNEY FAILURE, UNSPECIFIED Status: Acute Current Visit: Yes (3) CHF (congestive heart failure) SNOMED Code(s): 18859748 ICD Code: I50.9 - HEART FAILURE, UNSPECIFIED Status: Chronic Current Visit: Yes (4) Dehydration SNOMED Code(s): 66646834 ICD Code: E86.0 - DEHYDRATION Status: Resolved Current Visit: Yes (5) Pneumonia SNOMED Code(s): 439636847 ICD Code: J18.9 - PNEUMONIA, UNSPECIFIED ORGANISM Status: Acute Current Visit: Yes (6) Weakness SNOMED Code(s): 37314891 ICD Code: R53.1 - WEAKNESS Status: Acute Current Visit: Yes (7) CAD (coronary artery disease) SNOMED Code(s): 21509751 ICD Code: I25.10 - ATHSCL HEART DISEASE OF [place] CORONARY ARTERY W/O ANG PCTRS Status: Chronic Current Visit: Yes Qualifiers: Coronary Disease-Associated Artery/Lesion type: bypass graft (8) CKD (chronic kidney disease) SNOMED Code(s): 041413869 ICD Code: N18.9 - CHRONIC KIDNEY DISEASE, UNSPECIFIED Status: Chronic Current Visit: Yes Qualifiers: Chronic kidney disease stage: stage 3 (moderate) (9) HTN (hypertension) SNOMED Code(s): 46656321 ICD Code: I10 - ESSENTIAL (PRIMARY) HYPERTENSION Status: Chronic Current Visit: Yes Qualifiers: Hypertension type: essential hypertension Qualified Code(s): I10 - Essential (primary) hypertension (10) Afib SNOMED Code(s): 52630452 ICD Code: I48.91 - UNSPECIFIED ATRIAL FIBRILLATION Status: Chronic Current Visit: No Qualifiers: Atrial fibrillation type: permanent (11) Hyperlipemia, mixed SNOMED Code(s): 134764275 ICD Code: E78.2 - MIXED HYPERLIPIDEMIA Status: Chronic Current Visit: No (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 SNOMED Code(s): 375903903 ICD Code: Z79.01 - CORRECTION (CURRENT) USE OF ANTICOAGULANTS Status: Chronic Current Visit: No (13) Unsteady gait SNOMED Code(s): 82842205 ICD Code: R26.81 - UNSTEADINESS ON FEET Status: Acute Current Visit: No (14) Palliative care encounter SNOMED Code(s): 660909583, 612109766 ICD Code: Z51.5 - ENCOUNTER FOR PALLIATIVE CARE Status: Acute Current Visit: Yes (15) Pleural effusion, right SNOMED Code(s): 71084807 ICD Code: J90 - PLEURAL EFFUSION, NOT ELSEWHERE CLASSIFIED Status: Acute Current Visit: Yes (16) Nausea SNOMED Code(s): 976733539 ICD Code: R11.0 - NAUSEA Status: Resolved Current Visit: Yes (17) Acute exacerbation of congestive heart failure SNOMED Code(s): 808470378, 47185695441831 ICD Code: I50.9 - HEART FAILURE, UNSPECIFIED Status: Acute Current Visit: Yes - Patient Summary/Data Consults: Consultations 08/17/20 09:55 OT Evaluation and Treatment [CONS] Routine Please Evaluate and Treat. OT Reason for Consult: ADL's This query below is only for informational purposes and is not editable. Admission Diagnosis/Problem: Pneumonia involving right lung PT Evaluation and Treatment [CONS] Routine Please Evaluate and Treat. PT Reason for Consult: Strengthening This query below is only for informational purposes and is not editable. Admission Diagnosis/Problem: Pneumonia involving right lung - Discharge Plan *PRESCRIPTION DRUG MONITORING PROGRAM REVIEWED*: Not Applicable *COPY OF PRESCRIPTION DRUG MONITORING REPORT IN PATIENT KAJAL: Not Applicable Home Medications: Home Meds Aspirin [Adult Low Dose Aspirin EC] 81 mg PO DAILY 10/13/15 [History] Hydrochlorothiazide 25 mg PO DAILY 10/13/15 [History] Nitroglycerin [Nitrostat] 0.4 mg SL ASDIRECTED PRN 10/13/15 [History] amLODIPine [Norvasc] 10 mg PO DAILY 10/13/15 [History] atorvaSTATin [Lipitor] 40 mg PO BEDTIME 10/13/15 [History] carvediloL [Coreg] 25 mg PO BID 10/13/15 [History] dimenhyDRINATE [Dramamine] 100 mg PO BEDTIME 10/13/15 [History] Isosorbide Mononitrate [Isosorbide Mononitrate ER] 120 mg PO DAILY 05/14/16 [History] Alendronate [Fosamax] 70 mg PO PRUITT 05/15/16 [History] Propylene Glycol/Peg 400 [Systane Ultra 0.4-0.3% Eye Drp] 1 drop EYEBOTH QID 11/27/17 [History] Warfarin [Coumadin] 1.25 mg PO MOWEFR 11/27/17 [History] Warfarin [Coumadin] 2.5 mg PO SUTUTHSA 11/27/17 [History] Acetaminophen 500 mg PO BID 08/14/20 [History] Cholecalciferol (Vitamin D3) [Vitamin D3] 2,000 unit PO DAILY 08/14/20 [History] Ferrous Sulfate [Ferosul] 325 mg PO DAILY 08/14/20 [History] Furosemide [Lasix] 40 mg PO DAILY 08/14/20 [History] hydrALAZINE [Apresoline] 25 mg PO Q12HR 08/14/20 [History] Patient Handouts: Acute Kidney Injury, Adult, Dehydration, Adult, [id number]-[id number], Venous Thromboembolism Prevention, Community-Acquired Pneumonia, Adult, [id number] Forms: ED Department Discharge Referrals: Federico Alvarenga MD [Primary Care Provider] - - Discharge Summary/Plan Comment DC Time >30 min.: No - General Info Date of Service: 08/19/20 Admission Dx/Problem (Free Text: Admission Diagnosis/Problem Admission Diagnosis/Problem Dehydration Subjective Update: Patient stated that she feels worse this morning more tired, more short of breath Functional Status: Reports: Pain Controlled, Tolerating Diet, Ambulating, Urinating - Review of Systems General: Reports: Weakness, Fatigue, Malaise HEENT: Reports: No Symptoms Pulmonary: Reports: Shortness of Breath, Cough, Wheezing Cardiovascular: Reports: No Symptoms Gastrointestinal: Reports: No Symptoms Genitourinary: Reports: No Symptoms Musculoskeletal: Reports: No Symptoms Skin: Reports: No Symptoms Neurological: Reports: Weakness Psychiatric: Reports: No Symptoms - Patient Data Vitals - Most Recent: Last Vital Signs Temp 36.6 C 08/19/20 12:00 Pulse 75 08/19/20 12:00 Resp 22 H 08/19/20 12:00 BP 153/49 H 08/19/20 12:00 Pulse Ox 90 L 08/19/20 12:00 Weight - Most Recent: 41.095 kg I&O - Last 24 hours: Intake & Output 08/18/20 08/19/20 08/19/20 22:59 06:59 14:59 Intake Total 240 Balance 240 Lab Results - Last 24 hrs: Laboratory Results - last 24 hr 08/19/20 08/19/20 08/19/20 Range/Units 06:35 06:35 06:35 WBC 10.1 (3.0-10.3) x10-3/uL RBC 3.01 L (3.60-5.20) x10(6)uL Hgb 9.5 L (11.4-15.5) g/dL Hct 28.4 L (34.2-48.2) % MCV 94.1 (76.7-100.5) fL MCH 31.5 (23.9-33.9) pg MCHC 33.4 (31.9-34.8) g/dL RDW 13.0 (12.3-16.5) % Plt Count 241 (151-488) x10(3)uL MPV 8.3 (7.1-12.4) fL Neut % (Auto) 90.5 H (30.8-76.2) % Lymph % (Auto) 2.6 L (18.4-52.1) % Tripp % (Auto) 6.3 (4.4-15.7) % Eos % (Auto) 0.3 L (0.6-8.1) % Baso % (Auto) 0.3 (0.2-1.5) % Neut # (Auto) 9.2 H (1.5-6.3) x10-3/uL Lymph # (Auto) 0.3 L (1.0-4.4) x10-3/uL Tripp # (Auto) 0.6 (0.3-1.0) x10-3/uL Eos # (Auto) 0.0 (0.0-0.8) x10-3/uL Baso # (Auto) 0.0 (0.0-0.1) x10-3/uL PT (9.0-11.1) sec INR (1.00-1.24) Sodium 137 (135-145) mmol/L Potassium 3.5 (3.5-5.3) mmol/L Chloride 100 (100-110) mmol/L Carbon Dioxide 27 (21-32) mmol/L BUN 66 H D (7-18) mg/dL Creatinine 2.2 H* (0.55-1.02) mg/dL Est Cr Clr Drug Dosing 12.79 mL/min Estimated GFR (MDRD) 21 L (>60) BUN/Creatinine Ratio 30.0 H (9-20) Glucose 138 H (80-116) mg/dL Calcium 8.4 L (8.6-10.2) mg/dL NT-Pro-B Natriuret Pep 44985 H* (<=450) pg/mL 08/19/20 Range/Units 06:35 WBC (3.0-10.3) x10-3/uL RBC (3.60-5.20) x10(6)uL Hgb (11.4-15.5) g/dL Hct (34.2-48.2) % MCV (76.7-100.5) fL MCH (23.9-33.9) pg MCHC (31.9-34.8) g/dL RDW (12.3-16.5) % Plt Count (151-488) x10(3)uL MPV (7.1-12.4) fL Neut % (Auto) (30.8-76.2) % Lymph % (Auto) (18.4-52.1) % Tripp % (Auto) (4.4-15.7) % Eos % (Auto) (0.6-8.1) % Baso % (Auto) (0.2-1.5) % Neut # (Auto) (1.5-6.3) x10-3/uL Lymph # (Auto) (1.0-4.4) x10-3/uL Tripp # (Auto) (0.3-1.0) x10-3/uL Eos # (Auto) (0.0-0.8) x10-3/uL Baso # (Auto) (0.0-0.1) x10-3/uL PT 19.5 H (9.0-11.1) sec INR 1.89 H (1.00-1.24) Sodium (135-145) mmol/L Potassium (3.5-5.3) mmol/L Chloride (100-110) mmol/L Carbon Dioxide (21-32) mmol/L BUN (7-18) mg/dL Creatinine (0.55-1.02) mg/dL Est Cr Clr Drug Dosing mL/min Estimated GFR (MDRD) (>60) BUN/Creatinine Ratio (9-20) Glucose (80-116) mg/dL Calcium (8.6-10.2) mg/dL NT-Pro-B Natriuret Pep (<=450) pg/mL LUCAS Results - Last 24 hrs: Microbiology 08/14/20 10:55 Aerobic Blood Culture - Final Blood - Venous NO GROWTH AFTER 5 DAYS Anaerobic Blood Culture - Final 08/14/20 11:05 Aerobic Blood Culture - Final Blood - Venous - Lab Draw NO GROWTH AFTER 5 DAYS Anaerobic Blood Culture - Final NO GROWTH AFTER 5 DAYS Med Orders - Current: Current Medications Acetaminophen (Acetaminophen 325 Mg Tab) 650 mg PO Q4H PRN PRN Reason: Pain (mild 1-3) Last Admin: 08/17/20 21:28 Dose: 650 mg Documented by: Albuterol/Ipratropium (Albuterol/Ipratropium 3.0-0.5 Mg/3 Ml Neb Soln) 3 ml NEB Q2H PRN PRN Reason: Wheezing Last Admin: 08/19/20 10:12 Dose: 3 ml Documented by: Albuterol/Ipratropium (Albuterol/Ipratropium 3.0-0.5 Mg/3 Ml Neb Soln) 3 ml NEB Q4H SHERON Last Admin: 08/19/20 11:07 Dose: 3 ml Documented by: Amlodipine Besylate (Amlodipine 10 Mg Tab) 10 mg PO DAILY [facility] Last Admin: 08/19/20 08:09 Dose: 10 mg Documented by: Artificial Tears (Polyvinyl Alcohol 1.4% Ophth Soln 15 Ml Bottle) 0 ml EYEBOTH QID PRN PRN Reason: DRY EYES Aspirin (Aspirin 81 Mg Tab.Ec) 81 mg PO DAILY [facility] Last Admin: 08/19/20 08:09 Dose: 81 mg Documented by: Atorvastatin Calcium (Atorvastatin 40 Mg Tab) 40 mg PO BEDTIME SHERON Last Admin: 08/18/20 20:04 Dose: 40 mg Documented by: Carvedilol (Carvedilol 25 Mg Tab) 25 mg PO BID SHERON Last Admin: 08/19/20 08:08 Dose: 25 mg Documented by: Furosemide (Furosemide 40 Mg/4 Ml Vial) 40 mg IVPUSH BIDDIURETIC SHERON Last Admin: 08/19/20 08:00 Dose: 40 mg Documented by: Hydralazine HCl (Hydralazine 20 Mg/Ml Sdv) 10 mg IVPUSH Q2H PRN PRN Reason: Hypertension Last Admin: 08/15/20 06:18 Dose: 10 mg Documented by: Hydralazine HCl (Hydralazine 25 Mg Tab) 25 mg PO Q12H SHERON Last Admin: 08/19/20 08:07 Dose: 25 mg Documented by: Hydrochlorothiazide (Hydrochlorothiazide 25 Mg Tab) 25 mg PO DAILY [facility] Last Admin: 08/19/20 08:09 Dose: 25 mg Documented by: Sodium Chloride (Normal Saline) 250 mls @ 50 mls/hr IV ASDIRECTED [facility] Last Admin: 08/15/20 09:06 Dose: 50 mls/hr Documented by: Piperacillin Sod/Tazobactam (Sod 2.25 gm/ Sodium Chloride) 50 mls @ 100 mls/hr IV Q6H [facility] Last Admin: 08/19/20 09:36 Dose: 100 mls/hr Documented by: Doxycycline Hyclate 100 mg/ (Sodium Chloride) 100 mls @ 100 mls/hr IV Q12H [facility] Last Admin: 08/19/20 08:11 Dose: 100 mls/hr Documented by: Isosorbide Mononitrate (Isosorbide Mononitrate 60 Mg Tab.Er) 120 mg PO DAILY [facility] Last Admin: 08/19/20 08:02 Dose: 120 mg Documented by: Metolazone (Metolazone 2.5 Mg Tab) 2.5 mg PO DAILY@0730 [facility] Last Admin: 08/19/20 07:49 Dose: 2.5 mg Documented by: Nitroglycerin (Nitroglycerin 0.4 Mg Tab.Sl) 0.4 mg SL ASDIRECTED PRN PRN Reason: Chest Pain Prochlorperazine Edisylate (Prochlorperazine 10 Mg/2 Ml Sdv) 2.5 mg IV Q6H PRN PRN Reason: Nausea/Vomiting Sodium Chloride (Sodium Chloride 0.9% 10 Ml Syringe) 10 ml FLUSH ASDIRECTED PRN PRN Reason: Keep Vein Open Last Admin: 08/19/20 08:06 Dose: 10 ml Documented by: Warfarin Sodium (Warfarin Sliding Scale) 1 each PO ASDIRECTED [facility] Warfarin Sodium (Warfarin 2.5 Mg Tab) 2.5 mg PO SuTuThSa@1600 [facility] Last Admin: 08/16/20 15:00 Dose: 2.5 mg Documented by: Warfarin Sodium (Warfarin 2.5 Mg Tab) 1.25 mg PO MoWeFr@1600 [facility] Last Admin: 08/14/20 16:42 Dose: 1.25 mg Documented by: Warfarin Sodium (Warfarin 2.5 Mg Tab) 2.5 mg PO ONETIME ONE Stop: 08/19/20 16:01 Discontinued Medications Cefdinir (Cefdinir 300 Mg Cap) 300 mg PO DAILY SHERON Stop: 08/22/20 23:59 Last Admin: 08/18/20 08:25 Dose: 300 mg Documented by: Ceftriaxone Sodium (Ceftriaxone 1 Gm Vial) 1 gm IVPUSH Q24H SHERON Last Admin: 08/17/20 13:14 Dose: 1 gm Documented by: Doxycycline Hyclate (Doxycycline 100 Mg Tab) 100 mg PO BID SHERON Stop: 08/22/20 23:59 Last Admin: 08/18/20 20:04 Dose: 100 mg Documented by: Furosemide (Furosemide 20 Mg/2 Ml Vial) 20 mg IVPUSH NOW ONE Stop: 08/16/20 09:33 Last Admin: 08/16/20 09:47 Dose: 20 mg Documented by: Furosemide (Furosemide 20 Mg/2 Ml Vial) 20 mg IVPUSH BIDDIURETIC [facility] Last Admin: 08/16/20 14:57 Dose: 20 mg Documented by: Furosemide (Furosemide 40 Mg/4 Ml Vial) 40 mg IVPUSH BIDDIURETIC [facility] Last Admin: 08/17/20 14:54 Dose: 40 mg Documented by: Furosemide (Furosemide 40 Mg Tab) 40 mg PO BIDDIURETIC [facility] Last Admin: 08/18/20 14:08 Dose: 40 mg Documented by: Hydralazine HCl (Hydralazine 20 Mg/Ml Sdv) 20 mg IVPUSH NOW STA Stop: 08/14/20 09:03 Last Admin: 08/14/20 09:11 Dose: 20 mg Documented by: Hydralazine HCl (Hydralazine 20 Mg/Ml Sdv) 20 mg IVPUSH NOW STA Stop: 08/14/20 11:56 Last Admin: 08/14/20 12:02 Dose: 20 mg Documented by: Hydralazine HCl (Hydralazine 25 Mg Tab) 25 mg PO Q12H [facility] Last Admin: 08/18/20 00:11 Dose: 25 mg Documented by: Sodium Chloride (Normal Saline) 1,000 mls @ 500 mls/hr IV ASDIRECTED [facility] Last Admin: 08/14/20 15:32 Dose: 125 mls/hr Documented by: Prochlorperazine Edisylate 5 (mg/ Sodium Chloride) 51 mls @ 150 mls/hr IV NOW STA Stop: 08/14/20 10:24 Last Admin: 08/14/20 10:26 Dose: 150 mls/hr Documented by: Azithromycin 500 mg/ Sodium (Chloride) 250 mls @ 250 mls/hr IV Q24H [facility] Stop: 08/16/20 23:55 Doxycycline Hyclate 100 mg/ (Sodium Chloride) 100 mls @ 100 mls/hr IV Q12H [facility] Last Admin: 08/17/20 21:28 Dose: 100 mls/hr Documented by: Labetalol HCl (Labetalol 20 Mg/4 Ml Syringe) 20 mg IVPUSH NOW STA; Protocol Stop: 08/14/20 10:40 Last Admin: 08/14/20 10:57 Dose: 20 mg Documented by: Labetalol HCl (Labetalol 20 Mg/4 Ml Syringe) 20 mg IVPUSH NOW STA; Protocol Stop: 08/14/20 12:03 Last Admin: 08/14/20 12:06 Dose: 20 mg Documented by: Isosorbide Mononitrate Er 120 Mg *Ptom* 120 mg PO DAILY [facility] Last Admin: 08/16/20 08:28 Dose: 120 mg Documented by: Ondansetron HCl (Ondansetron 4 Mg/2 Ml Sdv) 4 mg IVPUSH NOW STA Stop: 08/14/20 09:03 Last Admin: 08/14/20 09:11 Dose: 4 mg Documented by: Ondansetron HCl (Ondansetron 4 Mg/2 Ml Sdv) 4 mg IVPUSH Q4H PRN PRN Reason: Nausea/Vomiting Last Admin: 08/15/20 16:03 Dose: 4 mg Documented by: Potassium Chloride (Potassium Chloride 20 Meq Tab.Er) 40 meq PO ONETIME ONE Stop: 08/17/20 17:49 Last Admin: 08/17/20 18:07 Dose: 40 meq Documented by: Prochlorperazine Edisylate (Prochlorperazine 10 Mg/2 Ml Sdv) 5 mg IVPUSH ONETIME ONE Stop: 08/14/20 10:06 Last Admin: 08/14/20 10:23 Dose: 5 mg Documented by: Prochlorperazine Edisylate (Prochlorperazine 10 Mg/2 Ml Sdv) 10 mg IVPUSH ONETIME ONE Stop: 08/16/20 08:51 Last Admin: 08/16/20 08:59 Dose: 10 mg Documented by: Prochlorperazine Edisylate (Prochlorperazine 10 Mg/2 Ml Sdv) 2.5 mg IM Q6H PRN PRN Reason: Nausea/Vomiting Comments:: She was sleeping on her right side, she was easy to awake, alert, oriented, pleasant - Exam Quality Assessment: Reports: Supplemental Oxygen, DVT Prophylaxis General: Reports: Alert, Oriented, Cooperative, Mild Distress Lungs: Reports: Decreased Breath Sounds, Crackles, Wheezing Cardiovascular: Reports: Regular Rate, Regular Rhythm, Murmurs Extremities: Normal Inspection Skin: Reports: Warm, Dry, Intact Neurological: Reports: No New Focal Deficit Psy/Mental Status: Reports: Alert, Normal Affect, Normal Mood
[2020-08-19] MEDS ORDERED: Warfarin 2.5 MG Tab PO ONE (16:00)
== END 2020-08-19 14:15 | disposition home or self-care (01) | DRG 291 ==
LOC: FB.ED 08:51 → FB.MS 11:56 → UNDOADMOB 12:10 → FB.MS 12:10 → INTOOBSV 18:30 → OBSVTOIN 18:30 → INTOOBSV 08-16 10:01 → OBSVTOIN 08-18 07:49 → FB.MS 08-18 07:49 → UNDOADMOB 08-18 07:49 → INTOOBSV 08-18 07:49 → UNDODISIN 08-19 14:15
PROVIDERS: ADMIT Student in an Organized Health Care Education/Training Program; ATTEND Student in an Organized Health Care Education/Training Program
DX: I13.0 Hypertensive heart and chronic kidney disease with heart failure and stage 1 through stage 4 chronic kidney disease, or unspecified chronic kidney disease (principal); J18.9 Pneumonia, unspecified organism; I50.33 Acute on chronic diastolic (congestive) heart failure; R53.1 Weakness; N17.9 Acute kidney failure, unspecified; I50.9 Heart failure, unspecified; N18.9 Chronic kidney disease, unspecified; I16.1 Hypertensive emergency; I13.10 Hypertensive heart and chronic kidney disease without heart failure, with stage 1 through stage 4 chronic kidney disease, or unspecified chronic kidney disease; I48.21 Permanent atrial fibrillation; H54.7 Unspecified visual loss; E86.0 Dehydration; Z51.5 Encounter for palliative care; I25.10 Atherosclerotic heart disease of native coronary artery without angina pectoris; M81.0 Age-related osteoporosis without current pathological fracture; F32.9 Major depressive disorder, single episode, unspecified; E78.2 Mixed hyperlipidemia; M19.90 Unspecified osteoarthritis, unspecified site; R26.81 Unsteadiness on feet; N18.30 Chronic kidney disease, stage 3 unspecified; Z79.82 Long term (current) use of aspirin; H91.90 Unspecified hearing loss, unspecified ear; K21.9 Gastro-esophageal reflux disease without esophagitis; R32 Unspecified urinary incontinence; Z79.899 Other long term (current) drug therapy; Z87.440 Personal history of urinary (tract) infections; Z79.01 Long term (current) use of anticoagulants; Z95.2 Presence of prosthetic heart valve; Z95.1 Presence of aortocoronary bypass graft; Z88.5 Allergy status to narcotic agent; Z88.2 Allergy status to sulfonamides; Z88.8 Allergy status to other drugs, medicaments and biological substances
CPT/HCPCS: 36415; 71045; 71046; 71250; 80048; 80053; 81001; 83605; 83735; 83880; 84484; 85025; 85610; 87040; 93005; 93308; 94150; 94640; 96365; 96367; 96375; 96376; 97161-GP; 97166-GO; 97530-GO; 97535-GO; 99285-25; A9270-GY; G0378; J0360; J0696; J0780; J1940; J2405; J2543; J3490; J7030; J7620-GY